=== PATIENT | female | born 1945 | race African-American/Black ===

== ENCOUNTER → 2016-06-02 | Outpatient (CLI) | payer MEDICARE, MEDICAID ==
[~2016-06-02] MED LIST: AMIO200T33; ENAL20TA70 PO; METO100T87 PO; MONT5CHW17 PO; TIOTCAP IN
== END | disposition home or self-care (01) ==
LOC: Rad HDHVI 10:03
PROVIDERS: ATTEND Internal Medicine Cardiovascular Disease
DX: M19.011 Primary osteoarthritis, right shoulder (principal); I10 Essential (primary) hypertension; E11.9 Type 2 diabetes mellitus without complications; R00.2 Palpitations
CPT/HCPCS: 73200

== ENCOUNTER → 2017-01-21 | Outpatient (CLI) | payer MEDICARE, MEDICAID ==
[~2017-01-21] VITALS: Ht 167.6 cm; Wt 86.2 kg
[~2017-01-21] MED LIST changes: +ADENOSINE 72 MG in GIVE UN-DILUTED 0 ML IV ONE; +ADENOSINE 90 MG/30 ML INJ IV ONE
[2017-01-21 12:29] LABS: Urine Bilirubin Negative (Negative); Urine Blood Negative /uL (Negative); Urine Color Yellow (Yellow); Urine Glucose Normal (Normal); Urine Ketone Negative (Negative); Urine Nitrite Negative (Negative); Urine Urobilinogen Normal (Negative); Urine pH 5.5 (5.0-8.0)
[2017-01-21 12:32] LABS: Basophils # (auto) 0 uL; Basophils % (auto) 0.4 % (0.0-2.0); Eosinophils # (auto) 0.1 uL; Eosinophils % (auto) 0.9 % (0.0-7.0); Hematocrit 38.8 % (36.0-46.0); Hemoglobin 12.3 g/dL (12.2-16.2); Lymphocytes # (auto) 0.9 uL; Lymphocytes % (auto) 14.8 % (10.0-50.0); Mean Corpuscular Hemoglobin 26.9 pg (28.0-32.0); Mean Corpuscular Hgb Conc. 31.7 g/dL (32.0-36.0); Mean Corpuscular Volume 84.6 fL (80.0-100.0); Monocytes # (auto) 0.6 uL; Monocytes % (auto) 9.5 % (0.0-12.0); Neutrophils # (auto) 4.6 uL; Neutrophils % (auto) 74.4 % (37.0-80.0); Nucleated Red Blood Cells % 0.1 %; Platelet Count (auto) 170 10^3/uL (140-450); Red Cell Distribution Width 14.7 % (11.8-14.3); White Blood Cell 6.2 10^3/uL (4.4-10.8)
[2017-01-21 12:54] LABS: Albumin 3.6 g/dL (3.4-5.0); BUN/Creatinine Ratio 16.8; Bilirubin, Total 0.6 mg/dL (0.2-1.0); Calcium 8.6 mg/dL (8.5-10.1); Potassium 4.2 mmol/L (3.5-5.1); Total Protein 7.5 g/dL (6.4-8.2)
== END | disposition home or self-care (01) ==
LOC: Rad HDHVI 07:53
PROVIDERS: ATTEND Internal Medicine Cardiovascular Disease
DX: I10 Essential (primary) hypertension (principal); E78.00 Pure hypercholesterolemia, unspecified; E11.9 Type 2 diabetes mellitus without complications; E03.9 Hypothyroidism, unspecified; D64.9 Anemia, unspecified; E55.9 Vitamin D deficiency, unspecified; N39.0 Urinary tract infection, site not specified
CPT/HCPCS: 36415; 78452; 80053; 80061; 81003; 82306; 83036; 84439; 84443; 85025; 93005; 93306; 96374; 96375; A9500; J0153

== ENCOUNTER 2018-03-15 09:30 | Inpatient (IN) | payer MEDICARE, MEDICAID | END 2018-03-19 16:08 | disposition home health service (06) | LOC: ER 09:30 → OVERFLOW 14:32 → WEST WING 21:08 | DX: K57.92 Diverticulitis of intestine, part unspecified, without perforation or abscess without bleeding (principal); N17.0 Acute kidney failure with tubular necrosis; I50.22 Chronic systolic (congestive) heart failure; I13.0 Hypertensive heart and chronic kidney disease with heart failure and stage 1 through stage 4 chronic kidney disease, or unspecified chronic kidney disease; I11.0 Hypertensive heart disease with heart failure; E11.22 Type 2 diabetes mellitus with diabetic chronic kidney disease; N18.3 Chronic kidney disease, stage 3 (moderate); Z95.0 Presence of cardiac pacemaker ==

== ENCOUNTER 2019-09-25 15:23 | Inpatient (IN) | payer MEDICARE, MEDICAID ==
[~2019-09-25] VITALS: Ht 167.6 cm; Wt 84.2 kg
[~2019-09-25 15:23] MED LIST changes: -ADENOSINE 72 MG in GIVE UN-DILUTED 0 ML IV ONE; -ADENOSINE 90 MG/30 ML INJ IV ONE; -AMIO200T33; +AMIO200T33 PO; -ENAL20TA70 PO; +ENAL20TA8 PO; +LEVO500T21 PO; +METR500T PO; -MONT5CHW17 PO; +ONDA-144 PO
[2019-09-25] MEDS ORDERED: AMIODARONE 450mg/250ml AE 250 ML IV SCH (15:57)
[2019-09-25 17:00] LABS: Basophils # (auto) 0 10 ^3/uL (0-0.2); Basophils % (auto) 0.4 % (0.0-2.0); Eosinophils # (auto) 0 10 ^3/uL (0-0.8); Eosinophils % (auto) 0.6 % (0.0-7.0); Hematocrit 33.3 % (36.0-46.0); Hemoglobin 10.4 g/dL (12.2-16.2); Lymphocytes % (auto) 14.8 % (10.0-50.0); Mean Corpuscular Hemoglobin 23.6 pg (28.0-32.0); Mean Corpuscular Hgb Conc. 31.1 g/dL (32.0-36.0); Mean Corpuscular Volume 75.8 fL (80.0-100.0); Monocytes # (auto) 0.6 10 ^3/uL (0-1.3); Monocytes % (auto) 9.6 % (0.0-12.0); Neutrophils # (auto) 4.8 10 ^3/uL (1.6-8.6); Neutrophils % (auto) 74.6 % (37.0-80.0); Nucleated Red Blood Cells % 0.1 %; Platelet Count (auto) 345 10^3/uL (140-450); Red Cell Distribution Width 17.9 % (11.8-14.3); White Blood Cell 6.5 10^3/uL (4.4-10.8)
[2019-09-25 17:14] LABS: INR 1.16 (0.9-1.15)
[2019-09-25 17:17] LABS: Potassium 4.6 mmol/L (3.5-5.1)
[2019-09-25 17:28] LABS: Albumin 3.1 g/dL (3.4-5.0); BUN/Creatinine Ratio 14.6; Bilirubin, Total 0.7 mg/dL (0.2-1.0); Calcium 8.7 mg/dL (8.5-10.1); Total Protein 7.1 g/dL (6.4-8.2)
[2019-09-25] MEDS ORDERED: FUROSEMIDE 40 MG/4 ML VIAL IV ONE ×2 (17:45→20:00)
[2019-09-25] MEDS ORDERED: IPRATROPIUM BROM 0.5 MG/2.5ML INH SOL NEB ONE ×2 (18:00→20:30)
[2019-09-25] MEDS ORDERED: ALBUTEROL SULF 2.5 MG/0.5ML(0.5%) NEB SOLN NEB ONE ×2 (18:00→20:30)
[2019-09-25] MEDS ORDERED: methylPREDNISolone SOD SUCC 125 MG/2 ML VL IV ONE (18:30)
[2019-09-25] MEDS ORDERED: NITROGLYCERIN 0.4 MG SL TAB SL PRN (19:00)
[2019-09-25] MEDS ORDERED: MORPHINE SULF INJ 2 MG/ML SYRINGE 1ML IV PRN (19:00)
[2019-09-25 19:21] LABS: Urine Bacteria FEW /hpf (None Seen); Urine Blood Negative /uL (Negative); Urine Hyaline Cast MOD /lpf (0 - 2); Urine Mucus FEW (None Seen); Urine Specific Gravity 1.014 (1.001-1.035); Urine WBC 1 /hpf (0 - 5)
[2019-09-25] MEDS ORDERED: SODIUM BICARBONATE 8.4 % INJ 50ML VIAL IV ONE (20:00)
[2019-09-25 20:01] VITALS: BP 127/106
[2019-09-25] MEDS: PROPOFOL 100 ML IV SCH (20:04)
[2019-09-25] MEDS ORDERED: IPRATROPIUM BROM 0.5 MG/2.5ML INH SOL ONE (20:06)
[2019-09-25] MEDS ORDERED: ALBUTEROL SULF 2.5 MG/0.5ML(0.5%) NEB SOLN ONE (20:06)
[2019-09-25] MEDS ORDERED: SUCCINYLCHOLINE CHLORIDE 20 MG/ML 10ML VIAL IV ONE (20:15)
[2019-09-25] MEDS ORDERED: ETOMIDATE (2MG/ML) 20ML VIAL IV ONE (20:15)
[2019-09-25] MEDS ORDERED: LORazepam 2MG/ML-1ML VIAL IV ONE (20:15)
[2019-09-25] MEDS ORDERED: LORazepam 2MG/ML-1ML VIAL ONE (20:16)
[2019-09-25] MEDS ORDERED: SODIUM BICARBONATE 8.4% INJ 50ML SYRINGE ONE (20:16)
[2019-09-25] MEDS ORDERED: NOREPINEPHRINE 8 MG/250ML KIT 250 ML IV ONE (20:30)
[2019-09-25 20:55] VITALS: BP 124/80
[2019-09-25] MEDS: MIDAZOLAM DRIP 50 mg/50mL 50 ML IV SCH (21:14)
[2019-09-25] MEDS: fentaNYL Drip 2500mCg/250mlNS 250 ML IV SCH (21:28)
[2019-09-25] MEDS: NOREPINEPHRINE 8 MG/250ML KIT 250 ML IV SCH (21:28)
[2019-09-25] MEDS ORDERED: AMIODARONE HCL 200 MG TAB PO SCH (22:00)
[2019-09-25] MEDS ORDERED: ENALAPRIL MALEATE 10 MG TAB PO SCH (22:00)
[2019-09-25 22:07] VITALS: BP 124/80
[2019-09-25] MEDS ORDERED: cefTRIAXone 1GM/50ML D5W 50 ML IV ONE (22:45)
[2019-09-25] MEDS: APIXABAN 5 MG TAB PO SCH (22:52)
[2019-09-25] MEDS: AZITHROMYCIN 500MG/ 250ML 250 ML IV SCH (23:11)
[2019-09-25] MEDS: AMIODARONE 450mg/250ml AE 250 ML IV SCH (23:56)
[2019-09-26] VITALS (12 sets, daily range): BP systolic 84–140; BP diastolic 41–91
[2019-09-26] MEDS: MIDAZOLAM DRIP 50 mg/50mL 50 ML IV SCH ×3 (01:19→16:42)
[2019-09-26] MEDS: FUROSEMIDE 20 MG/2 ML VIAL IV SCH ×2 (06:35→17:48)
[2019-09-26] MEDS ORDERED: HEPARIN IN NS 1000Units/500mL 0 ML ONE (07:28)
[2019-09-26] MEDS ORDERED: LIDOCAINE 2%HCL (LOCAL ANESTH.) INJ 20ML MDV ONE (07:28)
[2019-09-26] MEDS ORDERED: cefTRIAXone 1GM/50ML D5W 50 ML IV SCH (09:00)
[2019-09-26 09:22] LABS: Basophils # (auto) 0 10 ^3/uL (0-0.2); Basophils % (auto) 0.1 % (0.0-2.0); Eosinophils # (auto) 0 10 ^3/uL (0-0.8); Hematocrit 33.3 % (36.0-46.0); Hemoglobin 10.5 g/dL (12.2-16.2); Lymphocytes # (auto) 0.7 10 ^3/uL (0.4-5.4); Lymphocytes % (auto) 10.7 % (10.0-50.0); Mean Corpuscular Hemoglobin 23.3 pg (28.0-32.0); Mean Corpuscular Hgb Conc. 31.4 g/dL (32.0-36.0); Mean Corpuscular Volume 74.2 fL (80.0-100.0); Monocytes # (auto) 0.3 10 ^3/uL (0-1.3); Monocytes % (auto) 4.9 % (0.0-12.0); Neutrophils # (auto) 5.9 10 ^3/uL (1.6-8.6); Neutrophils % (auto) 84.3 % (37.0-80.0); Nucleated Red Blood Cells % 0.3 %; Platelet Count (auto) 412 10^3/uL (140-450); Red Blood Cells 4.49 10^6/uL (4.0-5.20); Red Cell Distribution Width 18.1 % (11.8-14.3)
[2019-09-26] MEDS: APIXABAN 5 MG TAB PO SCH ×2 (09:29→23:35)
[2019-09-26] MEDS: AZITHROMYCIN 500MG/ 250ML 250 ML IV SCH (09:29)
[2019-09-26 09:58] LABS: Albumin 3.1 g/dL (3.4-5.0); Calcium 8.4 mg/dL (8.5-10.1); Potassium 4.6 mmol/L (3.5-5.1)
[2019-09-26] MEDS ORDERED: ZITHROMAX IV SCH (10:00)
[2019-09-26] MEDS ORDERED: METOPROLOL SUCCINATE XL 50 MG TAB PO SCH (10:00)
[2019-09-26 10:02] LABS: Bilirubin, Total 0.7 mg/dL (0.2-1.0); Total Protein 7.1 g/dL (6.4-8.2)
[2019-09-26] MEDS: NOREPINEPHRINE 8 MG/250ML KIT 250 ML IV SCH (11:13)
[2019-09-26] MEDS: AMIODARONE 450mg/250ml AE 250 ML IV SCH (14:57)
[2019-09-26] MEDS: fentaNYL Drip 2500mCg/250mlNS 250 ML IV SCH (17:30)
[2019-09-26] MEDS: PROPOFOL 100 ML IV SCH (20:04)
--- NOTE | 2019-09-26 20:10 | NUR ---
Respiratory note: TITRATED FIO2 TO 30%. PT TOLERATING WELL.
[2019-09-27] VITALS (37 sets, daily range): BP systolic 84–131; BP diastolic 57–96
[2019-09-27] MEDS ORDERED: AMIODARONE 450mg/250ml AE 250 ML IV ONE (06:00)
[2019-09-27] MEDS: FUROSEMIDE 20 MG/2 ML VIAL IV SCH ×2 (06:36→18:26)
[2019-09-27] MEDS: cefTRIAXone 1GM/50ML D5W 50 ML IV SCH (09:49)
[2019-09-27] MEDS: APIXABAN 5 MG TAB PO SCH ×2 (09:49→21:41)
[2019-09-27] MEDS: AZITHROMYCIN 500MG/ 250ML 250 ML IV SCH (09:49)
--- NOTE | 2019-09-27 12:50 | NUR ---
Respiratory note: PT PLACED ON CPAP TRIAL PER Toyin RETANA. PT TOLERATING CHANGE WELL. RN AWARE. WILL CONTINUE TO MONITOR PT.
--- NOTE | 2019-09-27 13:08 | NUR ---
Respiratory note: CPAP TRIAL TERMINATED DUE TO PT INCREASED RR TO >45, SPO2 90%, HR 120. PT PLACE ON PREVIOUS AC MODE, AND SETTINGS. PT TOLERATING CHANGE WELL. PT IS RESPONSIVE TO TACTILE STIMULI, HOWEVER CANNOT FOLLOW COMMANDS. RN AWARE. WILL CONTINUE TO MONITOR PT.
[2019-09-27] MEDS: fentaNYL Drip 2500mCg/250mlNS 250 ML IV SCH (16:24)
[2019-09-27 17:06] LABS: Eosinophils # (auto) 0 10 ^3/uL (0-0.8); Hemoglobin 10.3 g/dL (12.2-16.2); Mean Corpuscular Volume 75.4 fL (80.0-100.0)
[2019-09-27 17:08] LABS: Basophils # (auto) 0 10 ^3/uL (0-0.2); Basophils % (auto) 0.5 % (0.0-2.0); Eosinophils % (auto) 0.1 % (0.0-7.0); Hematocrit 32.9 % (36.0-46.0); Lymphocytes % (auto) 10.2 % (10.0-50.0); Mean Corpuscular Hemoglobin 23.7 pg (28.0-32.0); Mean Corpuscular Hgb Conc. 31.4 g/dL (32.0-36.0); Monocytes # (auto) 0.9 10 ^3/uL (0-1.3); Monocytes % (auto) 9.4 % (0.0-12.0); Neutrophils # (auto) 7.9 10 ^3/uL (1.6-8.6); Neutrophils % (auto) 79.8 % (37.0-80.0); Nucleated Red Blood Cells % 0.3 %; Platelet Count (auto) 355 10^3/uL (140-450); Red Blood Cells 4.36 10^6/uL (4.0-5.20); Red Cell Distribution Width 17.7 % (11.8-14.3); White Blood Cell 9.9 10^3/uL (4.4-10.8)
[2019-09-27 17:20] LABS: INR 1.24 (0.9-1.15)
[2019-09-27 17:23] LABS: Alanine Aminotransferase 97 U/L (13-56); Albumin 2.6 g/dL (3.4-5.0); Anion Gap 10 (5-15); Aspartate Aminotransferase 60 U/L (15-37); BUN/Creatinine Ratio 15.9; Blood Urea Nitrogen 39 mg/dL (7-18); Calcium 7.8 mg/dL (8.5-10.1); Carbon Dioxide 20 mmol/L (21-32); Chloride 104 mmol/L (98-107); GFR African American 25 mL/min; GFR Non-African American 21 mL/min; Glucose 230 mg/dL (74-106); Sodium 134 mmol/L (136-145)
[2019-09-27 17:25] LABS: Alkaline Phosphatase 100 U/L (45-117); Bilirubin, Total 0.5 mg/dL (0.2-1.0); Total Protein 6.4 g/dL (6.4-8.2)
--- NOTE | 2019-09-27 17:45 | NUR ---
Admit to Senior Account Executive bed 6 from ER on vent MIRAADDY PARIKH admitted to Senior Account Executive bed 6 as ICU overflow via bed on bus driver/monitor, intubated and being bagged by Respiratory Therapist. Patient transferred to bed, connected to mechanical ventilator by therapist, ADA at bedside. Patient connected to ICU monitoring, weighed by bedscale.
--- NOTE | 2019-09-27 18:31 | NUR ---
RT NOTE RECEIVED PT INTUBATED AND ON VENT V17 ON STATED SETTINGS. VENT IS PLUGGED TO RED OUTLET. ALARMS ARE ON AND AUDIBLE TO NURSING. A,BU BAG AT BEDSIDE AND CONNECTED TO O2. 8.0 ETT IS SECURED WITH ANCHORFAST AT 22 CM AT THE TEETH AT THE ORAL CENTER. BS ARE CTA. PT SUCTIONED FOR SCANT RETURN.CONT ORDERED. CIRCUIT TEMP 34.9, POX 95% Addendum: 09/27/19 at 1836 by Opal Gamez RT Amended: Links added.
--- NOTE | 2019-09-27 18:45 | NUR ---
Patient bathe/linen change Patient given complete bath with chlorhexidine wipes. Skin integrity assessed for any changes. Linens changed. Patient repositioned for comfort.
[2019-09-27] MEDS: PROPOFOL 100 ML IV SCH (20:04)
--- NOTE | 2019-09-27 20:05 | NUR ---
RT NOTE ROUTINE VENT CHECK DONE. PT INTUBATED AND ON VENT V17 ON STATED SETTINGS. VENT IS PLUGGED TO RED OUTLET. ALARMS ARE ON AND AUDIBLE TO NURSING. A,BU BAG AT BEDSIDE AND CONNECTED TO O2. 8.0 ETT IS SECURED WITH ANCHORFAST AT 22 CM AT THE TEETH AT THE ORAL CENTER. BS ARE CTA. WATER LEVEL IS ADEQUATE. CONT ORDERED. CIRCUIT TEMP 35.1, POX 94% Addendum: 09/27/19 at 2028 by Opal Gamez RT Amended: Links added.
[2019-09-27] MEDS: MIDAZOLAM DRIP 50 mg/50mL 50 ML IV SCH (20:06)
[2019-09-27] MEDS: AMIODARONE 450mg/250ml AE 250 ML IV SCH (21:42)
[2019-09-27] MEDS: NOREPINEPHRINE 8 MG/250ML KIT 250 ML IV SCH (21:44)
[2019-09-27 21:47] LABS: Potassium 3.9 mmol/L (3.5-5.1)
--- NOTE | 2019-09-27 22:00 | NUR ---
PAGED REGARDING PATIENT'S ARRHYTHMIA
--- NOTE | 2019-09-27 22:07 | NUR ---
RT NOTE ROUTINE VENT CHECK DONE. PT INTUBATED AND ON VENT V17 ON STATED SETTINGS. VENT IS PLUGGED TO RED OUTLET. ALARMS ARE ON AND AUDIBLE TO NURSING. A,BU BAG AT BEDSIDE AND CONNECTED TO O2. 8.0 ETT IS SECURED WITH ANCHORFAST AT 22 CM AT THE TEETH AT THE ORAL CENTER. BS ARE CTA. PT WAS SUCTIONED FOR SCANT RETURN. WATER LEVEL IS ADEQUATE. CONT ORDERED. CIRCUIT TEMP 34.9, POX 97% Addendum: 09/27/19 at 2310 by Opal Gamez RT Amended: Links added.
--- NOTE | 2019-09-27 22:20 | NUR ---
CALLED BACK UPDATED ON PATIENT'S STATUS AND LAB VALUES. ORDERS RECEIVED.
[2019-09-27] MEDS ORDERED: POTASSIUM CHL 20MEQ/100ML 100 ML IV ONE (22:30)
[2019-09-27] MEDS ORDERED: MAGNESIUM SULFATE 1GM/100ML 100 ML IV ONE (22:30)
[2019-09-28] VITALS (96 sets, daily range): BP systolic 83–151; BP diastolic 53–96
--- NOTE | 2019-09-28 00:10 | NUR ---
RT NOTE ROUTINE VENT CHECK DONE. PT INTUBATED AND ON VENT V17 ON STATED SETTINGS. VENT IS PLUGGED TO RED OUTLET. ALARMS ARE ON AND AUDIBLE TO NURSING. A,BU BAG AT BEDSIDE AND CONNECTED TO O2. 8.0 ETT IS SECURED WITH ANCHORFAST AT 22 CM AT THE TEETH AT THE ORAL RIGHT. WATER LEVEL IS ADEQUATE. CONT ORDERED. CIRCUIT TEMP 35.0, POX 97% Addendum: 09/28/19 at 0038 by Opal Gamez RT Amended: Links added.
[2019-09-28] MEDS ORDERED: CARV25TA PO (01:41)
[2019-09-28] MEDS ORDERED: FUR20T GT (01:41)
[2019-09-28] MEDS ORDERED: AMLO5TAB15 PO (01:41)
[2019-09-28] MEDS ORDERED: LOSA-39 PO (01:41)
[2019-09-28] MEDS ORDERED: METO25TA5 PO (01:41)
[2019-09-28] MEDS ORDERED: ATOR20TA50 PO (01:41)
[2019-09-28] MEDS ORDERED: LINA5TAB PO (01:41)
[2019-09-28] MEDS ORDERED: APIX5TAB PO (01:41)
[2019-09-28] MEDS ORDERED: DILT60TA27 PO (01:41)
[2019-09-28] MEDS ORDERED: HYDR-531 PO (01:44)
--- NOTE | 2019-09-28 02:04 | NUR ---
RT NOTE ROUTINE VENT CHECK DONE. PT INTUBATED AND ON VENT V17 ON STATED SETTINGS. VENT IS PLUGGED TO RED OUTLET. ALARMS ARE ON AND AUDIBLE TO NURSING. A,BU BAG AT BEDSIDE AND CONNECTED TO O2. 8.0 ETT IS SECURED WITH ANCHORFAST AT 22 CM AT THE TEETH AT THE ORAL RIGHT. WATER LEVEL IS ADEQUATE. CONT ORDERED. CIRCUIT TEMP 35.0, POX 97% Addendum: 09/28/19 at 0210 by Opal Gamez RT Amended: Links added.
--- NOTE | 2019-09-28 04:04 | NUR ---
RT NOTE ROUTINE VENT CHECK DONE. PT INTUBATED AND ON VENT V17 ON STATED SETTINGS. VENT IS PLUGGED TO RED OUTLET. ALARMS ARE ON AND AUDIBLE TO NURSING. AMBU BAG AT BEDSIDE AND CONNECTED TO O2. 8.0 ETT IS SECURED WITH ANCHORFAST AT 22 CM AT THE TEETH AT THE ORAL RIGHT. WATER LEVEL IS ADEQUATE. CONT ORDERED. CIRCUIT TEMP 35.0, POX 97% Addendum: 09/28/19 at 0423 by Opal Gamez RT Amended: Links added.
[2019-09-28 04:16] LABS: Eosinophils # (auto) 0 10 ^3/uL (0-0.8); Hemoglobin 10.2 g/dL (12.2-16.2)
[2019-09-28 04:17] LABS: Basophils # (auto) 0.1 10 ^3/uL (0-0.2); Basophils % (auto) 0.7 % (0.0-2.0); Eosinophils % (auto) 0.4 % (0.0-7.0); Hematocrit 32.6 % (36.0-46.0); Lymphocytes # (auto) 1.1 10 ^3/uL (0.4-5.4); Lymphocytes % (auto) 12.3 % (10.0-50.0); Mean Corpuscular Hemoglobin 23.2 pg (28.0-32.0); Mean Corpuscular Hgb Conc. 31.2 g/dL (32.0-36.0); Mean Corpuscular Volume 74.4 fL (80.0-100.0); Monocytes % (auto) 11.3 % (0.0-12.0); Neutrophils # (auto) 6.5 10 ^3/uL (1.6-8.6); Neutrophils % (auto) 75.3 % (37.0-80.0); Nucleated Red Blood Cells % 0.5 %; Platelet Count (auto) 335 10^3/uL (140-450); Red Blood Cells 4.39 10^6/uL (4.0-5.20); Red Cell Distribution Width 17.6 % (11.8-14.3); White Blood Cell 8.6 10^3/uL (4.4-10.8)
[2019-09-28 04:31] LABS: Albumin 2.5 g/dL (3.4-5.0); Calcium 8.2 mg/dL (8.5-10.1); Potassium 4.2 mmol/L (3.5-5.1)
[2019-09-28 04:34] LABS: BUN/Creatinine Ratio 17.4; Bilirubin, Total 0.6 mg/dL (0.2-1.0); Total Protein 6.1 g/dL (6.4-8.2)
[2019-09-28] MEDS: FUROSEMIDE 20 MG/2 ML VIAL IV SCH ×2 (05:41→17:53)
[2019-09-28] MEDS: fentaNYL Drip 2500mCg/250mlNS 250 ML IV SCH (05:42)
--- NOTE | 2019-09-28 06:40 | NUR ---
RECEIVED PHONE CALL FROM . UPDATED ON PATIENT'S STATUS. NO NEW ORDERS FOR SEFERINO ON EKG.
[2019-09-28] MEDS ORDERED: SODIUM CHLORIDE 0.9% 1,000 ML IV SCH (06:45)
[2019-09-28] MEDS ORDERED: LIDOCAINE 2%HCL (LOCAL ANESTH.) INJ 20ML MDV ONE (08:50)
--- NOTE | 2019-09-28 09:25 | NUR ---
Resumed care at 0725, orders removed and ongoing assessments being done. Being treated for multiple problems and remains intubated and maintaining on FentaNLY infusion for comfort. Does open eyes upon stimulation. No sustain eye contact and at this time not following simple directions. Scheduled for procedure today in the Dictaphone Operator. Required another IV access and a 22 gauge to the right hand started by Isidro TY. Remains in AFIB with rate ranging from 110-120 and remains on a Amiodarone gtt at 0.5mg/min. Levophed continues to infuse for hemodynamic stability and will titrate as appropriate. Taken to Dictaphone Operator suite at 0855. Escorted by Maryana TY and staff.
[2019-09-28] MEDS: cefTRIAXone 1GM/50ML D5W 50 ML IV SCH (10:00)
[2019-09-28] MEDS ORDERED: ceFAZolin 1GM 2 GM in D5W 5% 100 ML IV ONE (10:30)
--- NOTE | 2019-09-28 10:50 | NUR ---
RT NOTE: PT JUST BROUGHT BACK FROM 2HR PROCEDURE IN THERMO CEMENTING FOLDER OPERATOR. PROCEDURE HAPPENED W/O INCIDENT. RN IS BEDSIDE REPOSITIONING PT. NO SIGNS OF DISTRESS. PT IS BEGINNING TO WAKE UP BUT IS STILL NOT FOLLOWING COMMANDS. RN STATED THAT SHE SPOKE WITH DR URENA WHO WOULD LIKE TO TRY CPAP LATER IN SHIFT IF PT STARTS TO FOLLOW COMMANDS. WILL CONTINUE TO MONITOR.
--- NOTE | 2019-09-28 11:04 | NUR ---
report given to pcn. pt taken to ICU without incident. pt placed on monitor. site checked with pcn and no changes. groin soft and benign. no bleeding noted.
[2019-09-28] MEDS: AMIODARONE HCL 200 MG TAB PO SCH (11:53)
[2019-09-28] MEDS: APIXABAN 5 MG TAB PO SCH ×2 (11:53→21:48)
[2019-09-28] MEDS: AZITHROMYCIN 500MG/ 250ML 250 ML IV SCH (12:44)
--- NOTE | 2019-09-28 13:26 | NUR ---
Returned to record label intern bed 6 at 1055 am. Report received from Maryana TY and Dr. Levine. Successful cardiac ablation and is 100% V-paced and remains V-paced with no ectopy noted. Per Dr. Levine will discontinue the Amiodarone infusion once po amiodarone given. Administered and will discontinue infusion at 1400. Tapering down FentaNLY infusion. Easily awakens when stimulated and opens eyes but does not have any sustain eye contact and not able to follow any simple directions. Starts biting down on ETT when awaken. Reoriented to staff, place and situation upon rendering care.
--- NOTE | 2019-09-28 16:42 | NUR ---
Dr. Prasad in unit at 1545. Continue with current plan of care. Continues to awaken by calling name and open eyes. She did nod head yes when asked if she could hear me but not following any other direction. Does move arms upward but has not attempted to pull on the EET, soft mittens to both hands. Shalonda RT placed on CPAP approximately an hour ago and went apneic. She also continues to bite down on the EET. Interrupted CPAP trial for now.
--- NOTE | 2019-09-28 18:40 | NUR ---
Resting quietly. Tolerating ventilator when sleeping but once she is awake she starts biting down on tube. Continue to reorient to situation and plan of care.
[2019-09-28] MEDS ORDERED: DEXTROSE (50%) 50ML SYRG IV PRN (19:00)
[2019-09-28] MEDS: PROPOFOL 100 ML IV SCH (20:04)
[2019-09-28] MEDS: MIDAZOLAM DRIP 50 mg/50mL 50 ML IV SCH (20:06)
[2019-09-28] MEDS: NOREPINEPHRINE 8 MG/250ML KIT 250 ML IV SCH (20:46)
[2019-09-29] VITALS (98 sets, daily range): BP systolic 87–137; BP diastolic 52–98
[2019-09-29] MEDS: ACCU-CHEK COMFORT CURVE STRIP VI SCH ×5 (00:30→23:39)
[2019-09-29] MEDS: fentaNYL Drip 2500mCg/250mlNS 250 ML IV SCH (00:56)
--- NOTE | 2019-09-29 03:30 | NUR ---
Patient bathe/linen change Patient given complete bath with chlorhexidine wipes. Skin integrity assessed for any changes. Linens changed. Patient repositioned for comfort.
[2019-09-29 03:40] LABS: Basophils # (auto) 0.1 10 ^3/uL (0-0.2); Basophils % (auto) 0.6 % (0.0-2.0); Eosinophils # (auto) 0 10 ^3/uL (0-0.8); Eosinophils % (auto) 0.5 % (0.0-7.0); Hemoglobin 10.6 g/dL (12.2-16.2); Lymphocytes % (auto) 11.5 % (10.0-50.0); Mean Corpuscular Hemoglobin 23.4 pg (28.0-32.0); Mean Corpuscular Hgb Conc. 31.1 g/dL (32.0-36.0); Mean Corpuscular Volume 75.2 fL (80.0-100.0); Monocytes # (auto) 0.9 10 ^3/uL (0-1.3); Monocytes % (auto) 9.4 % (0.0-12.0); Neutrophils # (auto) 7.1 10 ^3/uL (1.6-8.6); Nucleated Red Blood Cells % 0.4 %; Platelet Count (auto) 296 10^3/uL (140-450); Red Blood Cells 4.52 10^6/uL (4.0-5.20); White Blood Cell 9.1 10^3/uL (4.4-10.8)
[2019-09-29 04:00] LABS: Potassium 4.7 mmol/L (3.5-5.1)
[2019-09-29 04:08] LABS: Albumin 2.4 g/dL (3.4-5.0); BUN/Creatinine Ratio 17.7; Bilirubin, Total 0.8 mg/dL (0.2-1.0); Calcium 8.4 mg/dL (8.5-10.1); Total Protein 6.5 g/dL (6.4-8.2)
[2019-09-29] MEDS: FUROSEMIDE 20 MG/2 ML VIAL IV SCH ×2 (05:31→18:12)
[2019-09-29] MEDS: DexMEDEtomidine 400 MCG in D5W 5% 96 ML IV SCH ×2 (05:31→23:39)
--- NOTE | 2019-09-29 05:35 | NUR ---
PRECEDEX During night ,Patient was tolerating the ventilator while sleeping but once she is awake she bits on ETT. Now when she wakes up she is restless and bitting on the tube. Precedex drip started for CPAP trial today.
[2019-09-29] MEDS: InsuLIN REG 1unit/0.01ml Soln (100units/ml) SC SCH ×5 (06:56→23:42)
--- NOTE | 2019-09-29 07:36 | NUR ---
Opening Note; Received report, assumed care of female patient on [facility] vent- AC, 16, 30%, 500tv, peep5, size 8.0, 22@ lip. Precedex 2mcg/kg/min into left UA midline. Neuro- patient not following commands at this time however some slight tracking, pupils 2mm bilat, brisk. Vital signs WNL. Patient repositioned in bed, no signs of acute distress noted at this time, continue to monitor.
--- NOTE | 2019-09-29 07:40 | NUR ---
G collected by RT
--- NOTE | 2019-09-29 08:00 | NUR ---
Pt awake but unable to follow commands at this time. Initiated spontaneous breathing trial, pt did not tolerate. Low tidal volumes 200-250ml, low RR 8-10, followed by periods of apnea. Placed pt back on AC mode previous settings. Will attempt at a later time when pt is more awake/alert. RN at bedside and aware.
[2019-09-29] MEDS: cefTRIAXone 1GM/50ML D5W 50 ML IV SCH (09:47)
[2019-09-29] MEDS: AMIODARONE HCL 200 MG TAB PO SCH (09:51)
[2019-09-29] MEDS: APIXABAN 5 MG TAB PO SCH ×2 (09:51→22:01)
--- NOTE | 2019-09-29 10:18 | NUR ---
NEURO; Patient sleeping at this time, multiple attempts to arouse and wake patient, periods of waking up but not following commands. Pupils 2mm bilat sluggish. Continue to monitor.
[2019-09-29] MEDS: AZITHROMYCIN 500MG/ 250ML 250 ML IV SCH (10:22)
--- NOTE | 2019-09-29 10:36 | NUR ---
Dr. Ricardo Prasad at bedside to evaluate patient, updated on patient status including neuro status. No new orders at this time.
--- NOTE | 2019-09-29 10:40 | NUR ---
Pt is arousable and occasionally tracking, still not following commands. Attempted CPAP trial again, pt did not tolerate. Quickly falls back asleep with episodes of apnea. Placed pt back on AC mode previous settings. RN at bedside and aware.
--- NOTE | 2019-09-29 12:45 | NUR ---
WOUND CARE NOTE: IN TO SEE PATIENT AT THIS TIME FOR SKIN INTEGRITY. PATIENT ADMITTED TO [facility] WITH DIAGNOSIS OF CHF. CURRENT JORGE SCORE IS 12. PATIENT WAS NOTED TO BE INTUBATED, LIGHTLY SEDATED IN ICU CL #6. PATIENT WILL BE UNDERGOING CPAP TRIAL SOON. PER BEDSIDE NURSE SHE IS WOUND FREE WITH EXCEPTION OF ECCHYMOSIS TO RIGHT AND LEFT A/C ARMS. WOUND PHOTO TAKEN FOR REFERENCE. RECOMMEND: FREQUENT TURN SCHEDULE Q 2 HOURS, PRN CONDITION PERMITS, WITH PRESSURE REDISTRIBUTION USING PILLOWS/WEDGES, BID/PRN APPLICATION MOISTURE BARRIER CREAM, OPTIFOAM GENTLE SACRAL DRESSING PREVENTATIVE, DIETARY CONSULT FOR INTUBATION STATUS, SKIN/WOUND CARE PLAN, CONTINUED MONITORING BY WOUND CARE TEAM.
--- NOTE | 2019-09-29 13:24 | NUR ---
Neuro; Patient opening eyes spontaneously, manipulating arms however still not following commands.
--- NOTE | 2019-09-29 15:14 | NUR ---
Nutrition Assessment Note please see attached link for complete assessment Est energy needs ABW 73 [id number] kcal (23-25 kcal/kg ABW), Est protein needs: 58-73g (0.8-1.0g/kg ABW). Will reassess per dry body wt Rec: Glucerna @ 60 ml/hr per MD approval Addendum: 09/29/19 at [address] Amended: Links added.
--- NOTE | 2019-09-29 16:18 | NUR ---
FAILED CPAP TRIAL Pt waking up more, shifting in bed and moving arms up towards face, still unable to follow commands. Initiated CPAP trial, pt tolerated approximately 10 minutes before RR increased to 40's with low VT 210-240ml with increased agitation and distress. Ended CPAP trial and placed back on AC mode, pt tolerating AC and resting back in bed with no distress. RN at bedside and aware. Will endorse pt care to noc shift RT.
--- NOTE | 2019-09-29 17:48 | NUR ---
Spoke with Dr. Levine via telephone, gave update on patient. No new orders at this time.
--- NOTE | 2019-09-29 19:16 | NUR ---
Dr. Gautam at bedside, updated on patient status, states we will CPAP in AM. Addendum: 09/29/19 at 1917 by Casey Veras RN Wrong time [id number]
[2019-09-29] MEDS: PROPOFOL 100 ML IV SCH (20:04)
[2019-09-29] MEDS: MIDAZOLAM DRIP 50 mg/50mL 50 ML IV SCH (20:06)
--- NOTE | 2019-09-29 20:30 | NUR ---
PARTIAL LINEN CHANGE COMPLETED
--- NOTE | 2019-09-29 20:30 | NUR ---
TEMP 100.8 F TEMPORAL - ICE PACKS APPLIED TO AXILLA, COOL COMPRESS TO FOREHEAD
--- NOTE | 2019-09-29 20:30 | NUR ---
OPENING NOTE: INTUBATED AND LIGHTLY SEDATED. OPENS EYES, APPEARS DISORIENTED, ATTEMPTS TO GRAB TUBE. V PACED WITH UNDERLYING A FLUTTER, HR 80. SBP 90-100s. 8.0 ETT, 23 AT THE LIP. LS CTA, INTERMITTENT RHONCHI, DIMINISHED TO BASES. EVEN AND UNLABORED BREATHING, SpO2>95% ON CURRENT VENT SETTINGS. MINIMAL ORAL SECRETIONS, THICK CREAMY SECRETIONS VIA ETT. ABD OBESE, BUT SOFT. HYPOACTIVE BS. UNKNOWN LBM. NGT + AIR BOLUS, CLAMPED. GARCIA PATENT AND INTACT, KIA URINE. SKIN GROSSLY INTACT, SEE SKIN AND WOUND FLOWSHEET. LEFT UPPER ARM MIDLINE, CDI, AND PATENT WITH BLOOD RETURN. REINFORCED POC. MAINTAINED PATIENT SAFETY: BED LOCKED AND IN THE LOWEST POSITION, FREQUENT VISUAL CHECKS, SOFT MITTENS ON FOR SAFETY. WILL CONT CARE
[2019-09-29] MEDS: NOREPINEPHRINE 8 MG/250ML KIT 250 ML IV SCH (20:46)
--- NOTE | 2019-09-29 21:17 | NUR ---
SEDATION VACATION: PATIENT ON PRECEDEX GTT, WAKES UP STARTLED AND DISORIENTED, ATTEMPTING TO PULL AT ETT. SOFT MITTENS ON FOR SAFETY Addendum: 09/29/19 at 2117 by Alicia Badillo RN RN Amended: Links added.
--- NOTE | 2019-09-29 22:02 | NUR ---
TEMP DOWN TO 99.3 F ORALLY
--- NOTE | 2019-09-29 23:45 | NUR ---
NEURO STATUS: AWAKENS STARTLED, DISORIENTED, BITING DOWN ON ETT, SWING ARMS AT SAFETY COUNCIL DIRECTOR, ATTEMPTING TO STRIKE AND PUSH SAFETY COUNCIL DIRECTOR AWAY. INCREASED PRECEDEX GTT, MITTENS ON FOR SAFETY
[2019-09-30] VITALS (61 sets, daily range): BP systolic 89–164; BP diastolic 59–128
--- NOTE | 2019-09-30 03:13 | NUR ---
BED BATH WITH CHG WIPES, BRENDA CARE, GARCIA CARE AND ORAL CARE
--- NOTE | 2019-09-30 04:00 | NUR ---
NEURO STATUS: MORE CALM THAN PREVIOUSLY, HOWEVER, NOT FOLLOWING COMMANDS AT THIS TIME.
[2019-09-30 05:20] LABS: Hemoglobin 10.4 g/dL (12.2-16.2); Lymphocytes # (auto) 0.9 10 ^3/uL (0.4-5.4)
[2019-09-30 05:23] LABS: Basophils # (auto) 0 10 ^3/uL (0-0.2); Basophils % (auto) 0.3 % (0.0-2.0); Eosinophils # (auto) 0.1 10 ^3/uL (0-0.8); Eosinophils % (auto) 0.5 % (0.0-7.0); Hematocrit 32.9 % (36.0-46.0); Lymphocytes % (auto) 9.2 % (10.0-50.0); Mean Corpuscular Hemoglobin 23.5 pg (28.0-32.0); Mean Corpuscular Hgb Conc. 31.6 g/dL (32.0-36.0); Mean Corpuscular Volume 74.4 fL (80.0-100.0); Monocytes # (auto) 1.1 10 ^3/uL (0-1.3); Monocytes % (auto) 11.3 % (0.0-12.0); Neutrophils # (auto) 7.4 10 ^3/uL (1.6-8.6); Neutrophils % (auto) 78.7 % (37.0-80.0); Platelet Count (auto) 272 10^3/uL (140-450); Red Blood Cells 4.43 10^6/uL (4.0-5.20); Red Cell Distribution Width 17.6 % (11.8-14.3); White Blood Cell 9.4 10^3/uL (4.4-10.8)
[2019-09-30] MEDS: ACCU-CHEK COMFORT CURVE STRIP VI SCH ×3 (05:35→18:30)
[2019-09-30] MEDS: FUROSEMIDE 20 MG/2 ML VIAL IV SCH ×2 (05:35→19:04)
[2019-09-30] MEDS: InsuLIN REG 1unit/0.01ml Soln (100units/ml) SC SCH ×3 (05:36→18:30)
[2019-09-30 05:39] LABS: Potassium 3.4 mmol/L (3.5-5.1)
[2019-09-30 05:51] LABS: Albumin 2.2 g/dL (3.4-5.0); BUN/Creatinine Ratio 16.2; Bilirubin, Total 0.8 mg/dL (0.2-1.0); Calcium 8.4 mg/dL (8.5-10.1); Total Protein 6.3 g/dL (6.4-8.2)
--- NOTE | 2019-09-30 06:27 | NUR ---
Respiratory note: RECEIVED PATIENT ON V17 V200 VENT ORALLY INTUBATED WITH AN 8.0 ETT SECURED VIA VIANCA AT THE 22CM MARKING AT THE LIP, AND MECHANICALLY VENTILATED WITH THE CHARTED SETTINGS. SPO2 97%, LUNG SOUNDS CLEAR/DIM T/O, SMALL AMOUNT OF THIN CLEAR SECRETIONS WHEN SUCTIONED. SKIN IS WARM/DRY TO THE TOUCH AND IS INTACT NEAR VIANCA SITE. THERE IS A NGT IN THE RIGHT NARE AND IS SECURED TO THE ETT. NO ADVANCE ACCESS LINES NOTED. NO NEW AM CXR TO ASSESS. PATIENT IS UNRESPONSIVE TO BOTH VERBAL/TACTILE STIMULI AND IS SEDATED ON A PRECEDEX DRIP. SHE IS RESTING COMFORTABLY AND TOLERATING VENT WELL, NO CHANGES MADE. VENT PLUGGED INTO RED OUTLET AND ALL ALARMS ARE SET AND AUDIBLE. WILL CONTINUE TO ASSESS PATIENT WELL VENTILATOR FUNCTION.
--- NOTE | 2019-09-30 07:32 | NUR ---
REPORT AND CARE ENDORSED TO MELONY PANDYA
--- NOTE | 2019-09-30 07:35 | NUR ---
Respiratory note: NEW VENT ORDERS RECEIVED, AND CHANGES MADE, PER DR. URENA'S TELEPHONE ORDER. RR WAS DECREASED TO 12 AND VT WAS DECREASED TO 450 AT THIS TIME. MELONY PANDYA MADE AWARE OF CHANGES.
--- NOTE | 2019-09-30 09:00 | NUR ---
PATIENT ON PRECEDEX - SEE IV SPREADSHEET. Addendum: 09/30/19 at 1558 by Edita Barnes RN Amended: Links added.
--- NOTE | 2019-09-30 09:16 | NUR ---
Respiratory note: AM CXR ASSESSED AND IT SHOWS ETT IN SATISFACTORY POSITION SITTING APPROX 3.4CM ABOVE THE SUNI. NO INDICATION TO ADJUST TUBE AT THIS TIME.
--- NOTE | 2019-09-30 09:50 | NUR ---
PATIENT' NIECE PHONES - UPDATED ON PATIENT CONDITION.
[2019-09-30] MEDS: cefTRIAXone 1GM/50ML D5W 50 ML IV SCH (09:52)
--- NOTE | 2019-09-30 10:16 | NUR ---
DR BARAKAT VISITS AND EXAMINES PATIENT - ORDER RECEIVED.
[2019-09-30] MEDS: APIXABAN 5 MG TAB PO SCH ×3 (10:41→22:38)
[2019-09-30] MEDS: AMIODARONE HCL 200 MG TAB PO SCH (10:41)
[2019-09-30] MEDS: AZITHROMYCIN 500MG/ 250ML 250 ML IV SCH (10:42)
--- NOTE | 2019-09-30 11:02 | NUR ---
Respiratory note: PATIENT MORE AWAKE NOW, FOLLOWING COMMANDS, AND WAS SWITCHED TO CPAP MODE AT THIS TIME WITH A PS 8 AND PEEP OF 5. PATIENT APPEARS RELAXED BUT SLIGHTLY TACHYPNEIC WITH A RR OF 26-28. RN MUMTAZ AT BEDSIDE AND AWARE OF CHANGE. SPONTANEOUS BREATHING TRIAL: VT: 440 RR: 26 VE: 10.6 HR: 80 SPO2: 100% BP: 118/79
--- NOTE | 2019-09-30 11:55 | NUR ---
Respiratory note: PATIENT SELF EXTUBATED AT APPROX 1128. SHE WAS IMMEDIATELY PLACED ON 30% COOL AEROSOL MASK AND NO STRIDOR WAS HEARD. PATIENT REMAINS WITH EVEN/UNLABORED RESPIRATIONS AND SPO2 MAINTAINS AT 98%. SHE WAS INSTRUCTED TO REFRAIN FROM TALKING FOR 2HRS TO AVOID POSSIBLE TRACHEAL/VOCAL CORD SWELLING FROM TRAUMA. PATIENT RESTING COMFORTABLY AT THIS TIME. DR. URENA INFORMED OF SELF EXTUBATION AND PATIENTS CURRENT STATUS.
[2019-09-30] MEDS: POTASSIUM CHL 20MEQ/100ML 100 ML IV SCH ×2 (12:00→13:50)
--- NOTE | 2019-09-30 14:35 | NUR ---
PATIENT CONTINUALLY REMOVING COOL MIST MASK ORDERED. EXPECTORATING MOD AMT'S THICK YELLOW/BLOODY SECRETIONS. O2 APPLIED PER NC @ 2L R.T. AWARE.
--- NOTE | 2019-09-30 17:55 | NUR ---
CALL PLACED TO DR BARAKAT RE: DOWNGRADE OF PATIENT - AWAITING RETURN CALL.
--- NOTE | 2019-09-30 19:24 | NUR ---
Opening Shift Note Assumed care of patient, awake and alert x 3 but with poor concentration and very lethargic. Bed is in lowest position and locked. Patient able to turn from side to side with mild assistance. No S/S of distress/SOB or pain. Patient attached to continuous bedside leaf stripper and continuous oxygen saturation monitor. BP cuff secured to right arm. Insructed on POC and to call for assist PRN, will continue to monitor for changes Q1hr and PRN.
[2019-09-30] MEDS: PROPOFOL 100 ML IV SCH (20:04)
[2019-09-30] MEDS: MIDAZOLAM DRIP 50 mg/50mL 50 ML IV SCH (20:06)
--- NOTE | 2019-09-30 20:15 | NUR ---
Patient given ice chips and able to tolerate with no issues.
[2019-09-30] MEDS: NOREPINEPHRINE 8 MG/250ML KIT 250 ML IV SCH (20:46)
--- NOTE | 2019-09-30 20:46 | NUR ---
MD Prasad called back and okayed transfer to Telemetry. Transfer order will be placed.
[2019-09-30] MEDS: fentaNYL Drip 2500mCg/250mlNS 250 ML IV SCH (20:47)
--- NOTE | 2019-09-30 21:12 | NUR ---
supervisor in charge notified of transfer order.
[2019-09-30] MEDS: DexMEDEtomidine 400 MCG in D5W 5% 96 ML IV SCH (22:01)
--- NOTE | 2019-09-30 22:40 | NUR ---
Patient refusing medications and will not move until she speaks with her niece. When I told patient that we would be transferring her soon to room 292B she became very upset and said she wants to go home. I told her that, as I had previously explained, she was not being discharged home but being transferred to a lower level of care. She became upset even further when I called her niece and left a message with a call back number. Patient states that she believes I did not call her niece but lied. Patient began pulling off her BP cuff and refused to take medications. I explained what Eliquis does and why it has been prescribed but patient just kept saying "I'm not taking any more medications."
--- NOTE | 2019-09-30 22:44 | NUR ---
Spoke to Traffic Officer who told me to send patient to room 292B where she will have access to a phone and patient can call niece herself.
--- NOTE | 2019-09-30 22:58 | NUR ---
Patient's niece called back and attempted to speak to patient. Patient began denying niece's pleas to stay in hospital. 'If you love me you'll come get me." I took phone to notify niece that we would have to move her to room 292B and patient became upset. "How dare you take phone away from me!" Per niece, patient is very stubborn and obstinate and has done this before when hospitalized. Patient, once more, is alert and oriented x 3. I informed patient that she would have a private phone available to her at all times once she was moved but she is still upset that I am moving her to new room.
--- NOTE | 2019-09-30 23:12 | NUR ---
Patient transferred to room 292B. Report given to MELONY Senior. Patient upset and crying but medically stable on 2 l/min NC. I once more educated patient that she has a phone available in her room and can call her niece at any time and showed her how to operate phone.
--- NOTE | 2019-09-30 23:36 | NUR ---
RECEIVED PATIENT FROM ICU VIA HOSPITAL BED. PATIENT CRYING AND BEGGING TO GO. NO S/S OF DISTRESS NOTED. PATIENT IS ON 2L/NC WITH O2 SAT 96%, BP 148/98. RR 23. PATIENT PLACE ON TELE BOX 59 WITH INITIAL READING PACED 81. GARCIA CATH IN PLACE DRAINING TO GRAVITY. BED IN LOWEST POSITION WITH SIDE RAILS UP X 2. CALL ECKERT WITHIN REACH. ALARM ON. CONTINUE TO MONITOR FOR CHANGES Q1H AND PRN
[2019-10-01] MEDS: InsuLIN REG 1unit/0.01ml Soln (100units/ml) SC SCH ×5 (00:28→17:42)
[2019-10-01] MEDS: ACCU-CHEK COMFORT CURVE STRIP VI SCH ×4 (00:28→17:42)
--- NOTE | 2019-10-01 00:36 | NUR ---
ACCU-CHECK, BS 167. PATIENT REFUSED TO TAKE INSULIN. EDUCATED PATIENT ON IMPORTANCE OF TAKING INSULIN, PATIENT STATED "LEAVE ME ALONE" " BETTER DON'T STICK ON ME". MEDICATED WASTED. CONTINUE TO MONITOR.
--- NOTE | 2019-10-01 03:44 | NUR ---
PATIENT SLEEPING. NO S/S OF DISTRESS NOTED. CONTINUE CARE.
[2019-10-01] MEDS: FUROSEMIDE 20 MG/2 ML VIAL IV SCH ×2 (06:14→17:42)
--- NOTE | 2019-10-01 06:15 | NUR ---
PATIENT REFUSED ACCU-CHECK AND STATED "LEAVE ME ALONE". WILL PASS IT TO DAY SHIFT RN TO MD. CONTINUE TO MONITOR.
--- NOTE | 2019-10-01 07:40 | NUR ---
Opening Shift Note: Assumed care of patient. Patient asleep at this time. No S/S of distress/SOB or pain. Bed in lowest locked position, side rails up x 2, call light within reach. Bed alarm activated for patient safety. Patient will be instructed on POC and to call for assist PRN, will continue to monitor for changes Q1hr and PRN.
--- NOTE | 2019-10-01 08:38 | NUR ---
Per laboratory associate "Patient is refusing blood work at this time. Will attempt again."
--- NOTE | 2019-10-01 08:48 | NUR ---
BLOOD PRESSURE: B/P at this time is 176/92. No PRNs available. Attempted to reach Dr. Prasad at this time, awaiting call back.
[2019-10-01] MEDS: AZITHROMYCIN 500MG/ 250ML 250 ML IV SCH (10:00)
[2019-10-01] MEDS: AMIODARONE HCL 200 MG TAB PO SCH (10:00)
[2019-10-01] MEDS: cefTRIAXone 1GM/50ML D5W 50 ML IV SCH (10:00)
[2019-10-01] MEDS: APIXABAN 5 MG TAB PO SCH ×2 (10:00→22:00)
--- NOTE | 2019-10-01 10:00 | NUR ---
PATIENT REFUSED 1000 MEDICATIONS.
--- NOTE | 2019-10-01 10:00 | NUR ---
CALLED AND LEFT MESSAGE FOR DR. BARAKAT AT THIS TIME. AWAITING CALL BACK.
[2019-10-01] MEDS ORDERED: hydrALAZINE HCL 20 MG/ML VL IV PRN (11:45)
--- NOTE | 2019-10-01 12:00 | NUR ---
PATIENT REFUSED ACCU-CHECK AT THIS TIME
[2019-10-01 13:00] VITALS: BP 136/67
[2019-10-01] MEDS ORDERED: ALPRAZolam 0.25 MG TAB PO PRN (15:00)
--- NOTE | 2019-10-01 17:17 | NUR ---
PATIENT REQUESTING DIET AT THIS TIME. ATTEMPTED TO REACH DR. BARAKAT, AWAITING CALL BACK.
--- NOTE | 2019-10-01 17:40 | NUR ---
NEW ORDERS RECEIVED FROM DR. BARAKAT. PATIENT UPDATED ON NEW ORDERS AT THIS TIME.
--- NOTE | 2019-10-01 17:44 | NUR ---
PATIENT REFUSED ACCU-CHECK AND 1800 MEDICATIONS AT THIS TIME.
[2019-10-01 17:58] VITALS: BP 144/82
--- NOTE | 2019-10-01 18:49 | NUR ---
CLOSING NOTE: Patient resting in bed. No S/S of distress at this time. Sitter at bedside for patient safety. Care endorsed
[2019-10-01 21:45] VITALS: BP 152/84
--- NOTE | 2019-10-01 22:30 | NUR ---
PATIENT REFUSED MEDICATIONS
--- NOTE | 2019-10-01 23:32 | NUR ---
PATIENT REFUSED BLOOD DRAW Patient stated that she was not going to take any more medication or allow any tests to be done to her. fiscal technician will return in the morning.
--- NOTE | 2019-10-02 00:30 | NUR ---
PATIENT REFUSING BLOOD SUGAR TEST Patient stated, "don't touch me and you better leave me alone". Patient continues to insult sitter and acts hostile towards staff.
--- NOTE | 2019-10-02 04:37 | NUR ---
Patient refused vitals.
[2019-10-02] MEDS: FUROSEMIDE 20 MG/2 ML VIAL IV SCH ×2 (05:52→18:00)
[2019-10-02] MEDS: InsuLIN REG 1unit/0.01ml Soln (100units/ml) SC SCH ×4 (05:53→18:00)
[2019-10-02] MEDS: ACCU-CHEK COMFORT CURVE STRIP VI SCH ×4 (05:53→18:00)
--- NOTE | 2019-10-02 05:53 | NUR ---
Patient refused Blood Glucose check and all medications.
--- NOTE | 2019-10-02 07:30 | NUR ---
Opening Shift Note: Assumed care of patient, awake and alert x 3. No S/S of distress/SOB or pain. Bed in lowest locked position, side rails up x 2, call light within reach. Sitter at bedside for patient safety. Patient instructed on POC and to call for assist PRN, will continue to monitor for changes Q1hr and PRN.
[2019-10-02 09:00] VITALS: BP 144/80
[2019-10-02] MEDS: AZITHROMYCIN 500MG/ 250ML 250 ML IV SCH (09:59)
[2019-10-02] MEDS: cefTRIAXone 1GM/50ML D5W 50 ML IV SCH (09:59)
[2019-10-02] MEDS: AMIODARONE HCL 200 MG TAB PO SCH (09:59)
[2019-10-02] MEDS: APIXABAN 5 MG TAB PO SCH ×2 (09:59→21:57)
--- NOTE | 2019-10-02 10:00 | NUR ---
PATIENT REFUSED MEDICATIONS AT THIS TIME.
--- NOTE | 2019-10-02 10:15 | NUR ---
PT REFUSED ABG AT THIS TIME. RECEIVED PT ON 4L NC WITH SPO2 99%. PT WAS PLACED ON RA AND SPO2 90%-93%. RT ATTEMPT BLOOD DRAW ON RIGHT RADIAL BUT MISSED AND PT REQUESTED FOR THE NEEDLE TO BE TAKEN OUT. SITTER AT BEDSIDE. PT PLACED ON 2L NC. MELONY MILLER MADE AWARE.
--- NOTE | 2019-10-02 10:23 | NUR ---
ATTEMPTED TO CALL PATIENTS SISTER PARKER AT THIS TIME. NO ANSWER. WILL ATTEMPT AGAIN.
--- NOTE | 2019-10-02 12:00 | NUR ---
PATIENT REFUSED ACCU-CHECK AT THIS TIME.
--- NOTE | 2019-10-02 12:43 | NUR ---
Nutrition Followup Note Wt 83.5kg Pt was awake and does not respond to questions. Pt responded but unable to understand what pt is saying. per sitter pt is still NPO awaiting speech therapy swallow eval. Will monitor pt swallow eval results, diet order and intake. Est energy needs ABW 73 [id number] kcal (23-25 kcal/kg ABW), Est protein needs: 58-73g (0.8-1.0g/kg ABW). Will reassess per dry body wt Labs: GLUC 167H, Alb 2.2L, Creat 1.67H, Ca 8.4L, BUN 27H] BM: Pt with no BM noted per RN doc Skin: BS 16 mod risk, full details in family member caretaker note. PES: Altered nutrition related lab values r.t current chronic medical condition aeb elev RFT mod hypoalb hypocalcemia Partially resolved, pt awaiting swallow eval from speech therapy: Impaired swallowing r.t current medical condition aeb pt`s intubated sedated with order of NPO Decreased nutrient needs r/t adiposity aeb pt`s high BMI of 31.0 kgm2 Comments: 1) advance diet as medically feasible: 2) refer to CDE on DC 3) continue current plan of care Expected Outcomes/Goals: 1)pt will have improved labs 2) pt will get > 75% of needs 3)pt will advance and kayli po F/u high 2-3 days
[2019-10-02 13:00] VITALS: BP 139/82
[2019-10-02 16:21] VITALS: BP 140/81
--- NOTE | 2019-10-02 17:37 | NUR ---
SWALLOW EVALUATION. PATIENT HAS NATURAL TEETH UPPER AND LOWER. PATIENT IS ABLE TO FOLLOW COMMANDS. PATIENT IS ABLE TO TOLERATE MECHANICAL SOFT DIET TEXTURE WITH THIN LIQUIDS WITH NO OVERT SIGNS OR SYMPTOMS OF ASPIRATION. NURSING NOTIFIED.
--- NOTE | 2019-10-02 18:50 | NUR ---
CLOSING NOTE: Patient resting in bed. No S/S of distress at this time. Sitter at bedside for patient safety. Care endorsed
--- NOTE | 2019-10-02 19:15 | NUR ---
Opening shift note Patient A&Ox4, respirations even and non-labored with no s/s of distress. Patient appeared calm and was willing to discuss her POC. Issa patent, draining dark yellow urine. Midline flushed, patent and intact. Bed in lowest locked position with 2 side rails up, call light within reach. Sitter bedside. Will continue to monitor.
[2019-10-02 21:46] VITALS: BP 138/77
[2019-10-02 23:06] LABS: Basophils # (auto) 0.1 10 ^3/uL (0-0.2); Basophils % (auto) 0.6 % (0.0-2.0); Eosinophils # (auto) 0.1 10 ^3/uL (0-0.8); Eosinophils % (auto) 1.3 % (0.0-7.0); Hematocrit 37.6 % (36.0-46.0); Hemoglobin 11.6 g/dL (12.2-16.2); Mean Corpuscular Hemoglobin 23.2 pg (28.0-32.0); Mean Corpuscular Hgb Conc. 30.9 g/dL (32.0-36.0); Mean Corpuscular Volume 75.1 fL (80.0-100.0); Monocytes # (auto) 1.3 10 ^3/uL (0-1.3); Monocytes % (auto) 14.1 % (0.0-12.0); Neutrophils # (auto) 6.6 10 ^3/uL (1.6-8.6); Platelet Count (auto) 356 10^3/uL (140-450); Red Blood Cells 5.01 10^6/uL (4.0-5.20); Red Cell Distribution Width 17.7 % (11.8-14.3); White Blood Cell 9.1 10^3/uL (4.4-10.8)
[2019-10-02 23:14] LABS: Albumin 2.8 g/dL (3.4-5.0); Calcium 9.5 mg/dL (8.5-10.1); Potassium 3.9 mmol/L (3.5-5.1)
[2019-10-02 23:16] LABS: BUN/Creatinine Ratio 23.2
[2019-10-02 23:19] LABS: Bilirubin, Total 0.5 mg/dL (0.2-1.0); Total Protein 7.5 g/dL (6.4-8.2)
[2019-10-03] MEDS: ACCU-CHEK COMFORT CURVE STRIP VI SCH ×4 (01:38→18:00)
[2019-10-03] MEDS: InsuLIN REG 1unit/0.01ml Soln (100units/ml) SC SCH ×4 (01:40→18:00)
[2019-10-03 05:02] VITALS: BP 130/76
[2019-10-03] MEDS: FUROSEMIDE 20 MG/2 ML VIAL IV SCH ×2 (06:41→18:00)
--- NOTE | 2019-10-03 07:25 | NUR ---
Opening Shift Note: Assumed care of patient, awake and alert. No S/S of distress/SOB or pain. Bed in lowest locked position, side rails up x 2, call light within reach. Sitter at bedside for patient safety. Patient instructed on POC and to call for assist PRN, will continue to monitor for changes Q1hr and PRN.
[2019-10-03 09:09] VITALS: BP 139/91
[2019-10-03] MEDS: AMIODARONE HCL 200 MG TAB PO SCH (09:55)
[2019-10-03] MEDS: APIXABAN 5 MG TAB PO SCH ×2 (09:55→23:25)
[2019-10-03] MEDS: AZITHROMYCIN 500MG/ 250ML 250 ML IV SCH (10:00)
[2019-10-03] MEDS: cefTRIAXone 1GM/50ML D5W 50 ML IV SCH (10:00)
[2019-10-03 10:24] LABS: Eosinophils # (auto) 0.1 10 ^3/uL (0-0.8); Neutrophils # (auto) 5.7 10 ^3/uL (1.6-8.6); White Blood Cell 7.7 10^3/uL (4.4-10.8)
[2019-10-03 10:28] LABS: Basophils # (auto) 0 10 ^3/uL (0-0.2); Basophils % (auto) 0.4 % (0.0-2.0); Eosinophils % (auto) 1.3 % (0.0-7.0); Hematocrit 39.3 % (36.0-46.0); Hemoglobin 12.2 g/dL (12.2-16.2); Lymphocytes # (auto) 0.9 10 ^3/uL (0.4-5.4); Lymphocytes % (auto) 12.1 % (10.0-50.0); Mean Corpuscular Hemoglobin 23.5 pg (28.0-32.0); Mean Corpuscular Hgb Conc. 31.1 g/dL (32.0-36.0); Mean Corpuscular Volume 75.5 fL (80.0-100.0); Monocytes # (auto) 0.9 10 ^3/uL (0-1.3); Monocytes % (auto) 12.1 % (0.0-12.0); Neutrophils % (auto) 74.1 % (37.0-80.0); Platelet Count (auto) 375 10^3/uL (140-450); Red Blood Cells 5.21 10^6/uL (4.0-5.20); Red Cell Distribution Width 18.2 % (11.8-14.3)
[2019-10-03 10:38] LABS: Albumin 2.8 g/dL (3.4-5.0); Calcium 9.6 mg/dL (8.5-10.1); Potassium 4.1 mmol/L (3.5-5.1)
[2019-10-03 10:41] LABS: BUN/Creatinine Ratio 21.3; Bilirubin, Total 0.6 mg/dL (0.2-1.0); Total Protein 7.7 g/dL (6.4-8.2)
[2019-10-03 12:47] VITALS: BP 132/72
--- NOTE | 2019-10-03 15:52 | NUR ---
Spoke with family for patient, regarding plan for rehab placement. Family is refusing at this time. Attempted to contact Dr. Prasad to update him on family wishes. Awaiting call back. Addendum: 10/03/19 at 1612 by JOSE CRUZ PRADO RN RN AWARE. WILL UPDATE FAMILY. [facility]
--- NOTE | 2019-10-03 16:48 | NUR ---
assessment Patient is a 74 year old female who is alert and oriented. Patients cognitive abilities are intact. Prior to admission patient lived home with family and functioned independently. Patient informed me she is able to care for her own ADLs. Per patient she will return home to her prior living arrangements post discharge and family will transport her home. Patient informed me she has a fww, cane, and home oxygen. I have offered patient home health and she refused stating she has all she needs at home and does not need any help. I will continue to monitor patient and follow up as appropriate. I informed patient she has a right to speak to a perinatal social worker regarding all care. I informed patient she has a right to participate in any and all discharge planning. Patient does not have a POA and advanced directive. I have offered patient information on POA and advanced directives. I informed the patient the advantages and benefits of having an Advanced Directive. Patient verbalized understanding and agreed to discharge plan. Addendum: 10/03/19 at 1701 by Catia SCOTT Amended: Links added.
[2019-10-03 16:56] VITALS: BP 136/89
--- NOTE | 2019-10-03 17:14 | NUR ---
PATIENT STATES THAT SHE WANTS TO BE DISCHARGED HOME. PATIENT UPDATED ON DISCHARGE PLANNING FOR TOMORROW, 10/02/2019. PATIENT THEN STATES "MY NIECE IS COMING TO PICK ME UP, YOU CALL HER AND SHE WILL TELL YOU." CALLED MICKEY TREVIÑO AT THIS TIME. PER NIECE "I AM NOT COMING TO PICK HER UP UNTIL SHE IS DISCHARGED."
--- NOTE | 2019-10-03 17:20 | NUR ---
FAMILY SET UP SECONDARY PASSWORD "CREAM"
--- NOTE | 2019-10-03 18:33 | NUR ---
PATIENT UPDATED ON CONVERSATION WITH MICKEY ANGEL. PER PATIENT "I WANT TO GO HOME. DISCHARGE ME HOME." PATIENT EDUCATED ON DISCHARGE PLANNING. PATIENT CONTINUALLY STATING "I WANT TO GO HOME." PATIENT NOT ABLE MINDED TO SIGN OUT AMA, AND PATIENT CANNOT EXPLAIN HOW AMA WORKS. SPOKE WITH MICKEY AND SHE STATED "I DON'T WANT TO SIGN HER OUT WITH OUT A DOCTORS ORDER, DO NOT LET HER SIGN OUT AMA, I AM NOT GOING TO TAKE HER HOME WITH OUT A DOCTORS ORDER."
--- NOTE | 2019-10-03 18:48 | NUR ---
CLOSING NOTE: Patient resting in be. No S/S of distress at this time. Sitter at bedside. care endorsed
--- NOTE | 2019-10-03 19:25 | NUR ---
Opening shift note Assumed care of patient who is A&Ox4, respirations even and non-labored with no s/s of distress. Discussed her POC and answered questions regarding her pending discharge. Issa patent, draining yellow urine, IV flushed patent and intact. Bed in lowest locked position with 2 side rails up. Sitter bedside. Call light within reach, will continue to monitor.
[2019-10-03 22:00] VITALS: BP 136/71
--- NOTE | 2019-10-03 22:30 | NUR ---
Spoke with patients Stephanie larson Discussed patients pending discharge at the request of the patient. Reinforced the discharge plans with the patient and discussed the POC again. Will continue to monitor physician notes for changes.
[2019-10-04] MEDS: InsuLIN REG 1unit/0.01ml Soln (100units/ml) SC SCH ×4 (02:13→18:00)
[2019-10-04 05:00] VITALS: BP 136/75
[2019-10-04] MEDS: FUROSEMIDE 20 MG/2 ML VIAL IV SCH ×2 (06:38→18:00)
[2019-10-04] MEDS: ACCU-CHEK COMFORT CURVE STRIP VI SCH ×4 (06:38→18:00)
[2019-10-04 06:41] LABS: Basophils # (auto) 0.1 10 ^3/uL (0-0.2); Basophils % (auto) 0.7 % (0.0-2.0); Eosinophils # (auto) 0.1 10 ^3/uL (0-0.8); Neutrophils % (auto) 64.7 % (37.0-80.0); Nucleated Red Blood Cells % 0.1 %; Red Cell Distribution Width 17.6 % (11.8-14.3)
[2019-10-04 06:43] LABS: Eosinophils % (auto) 1.5 % (0.0-7.0); Hemoglobin 11.6 g/dL (12.2-16.2); Lymphocytes # (auto) 1.4 10 ^3/uL (0.4-5.4); Lymphocytes % (auto) 19.2 % (10.0-50.0); Mean Corpuscular Hemoglobin 23.2 pg (28.0-32.0); Mean Corpuscular Hgb Conc. 31.2 g/dL (32.0-36.0); Mean Corpuscular Volume 74.3 fL (80.0-100.0); Monocytes % (auto) 13.9 % (0.0-12.0); Neutrophils # (auto) 4.8 10 ^3/uL (1.6-8.6); Platelet Count (auto) 344 10^3/uL (140-450); Red Blood Cells 4.98 10^6/uL (4.0-5.20); White Blood Cell 7.4 10^3/uL (4.4-10.8)
[2019-10-04 07:02] LABS: Albumin 2.7 g/dL (3.4-5.0); Calcium 9.3 mg/dL (8.5-10.1); Potassium 3.9 mmol/L (3.5-5.1)
[2019-10-04 07:05] LABS: BUN/Creatinine Ratio 18.8; Bilirubin, Total 0.5 mg/dL (0.2-1.0)
[2019-10-04 09:00] VITALS: BP 148/73
[2019-10-04] MEDS: cefTRIAXone 1GM/50ML D5W 50 ML IV SCH (09:19)
[2019-10-04] MEDS: AZITHROMYCIN 500MG/ 250ML 250 ML IV SCH (09:19)
[2019-10-04] MEDS: APIXABAN 5 MG TAB PO SCH (09:20)
[2019-10-04] MEDS: AMIODARONE HCL 200 MG TAB PO SCH (09:20)
--- NOTE | 2019-10-04 09:26 | NUR ---
Garcia catheter dc'd PATIENT REQUESTING TO REMOVE GARCIA CATHETER. Order to discontinue Garcia catheter. Garcia dc'd with clean technique following deflation of balloon. Patient tolerated well with no complaints of pain. Continue care. Addendum: 10/04/19 at 0928 by Jackie Klein RN OUTPUT 250MLS OF YELLOW URINE. FABRICIO CONTINUE CARE.
--- NOTE | 2019-10-04 10:00 | NUR ---
Dr. Prasad at bedside. per MD if patient is cleared from cardiology. Patient may go home. Called Dr. Levine, no answer left message . Will call later.
--- NOTE | 2019-10-04 12:04 | NUR ---
re-assessment Per consult home health. I informed patient of home health order and she is refusing home health services. Addendum: 10/04/19 at 1205 by Catia Thomas Amended: Links added.
--- NOTE | 2019-10-04 12:20 | NUR ---
Patient resting comfortably in bed with no distress noted at this time. Checked blood sugar: 201 mg/dl - will cover per sliding scale. Patient stable.
--- NOTE | 2019-10-04 12:30 | NUR ---
Paged for Dr. Levine. Left message with Leilani.awaiting call back.
[2019-10-04 13:00] VITALS: BP 127/81
--- NOTE | 2019-10-04 14:44 | NUR ---
Updated Allyssa ALVAREZ on patients plan of care after password was provided .
--- NOTE | 2019-10-04 14:49 | NUR ---
Paged Dr. Levine, left message.
--- NOTE | 2019-10-04 15:04 | NUR ---
Nutrition Followup Note Wt 83.5kg Pt was awake and does not respond to questions. Pt diet advanced to mechanical soft. Pt with inadequate po intake aeb pt with avg po intake of 44% x 2 days per RN note. Pt is pending DC home with home health. Est energy needs ABW 73 [id number] kcal (23-25 kcal/kg ABW), Est protein needs: 58-73g (0.8-1.0g/kg ABW). Will reassess per dry body wt Labs: BUn 29H, Creat 1.54H, Alb 2.7L, GLUC 161H BM: Pt with 2 BMs 8/3 per RN note Skin: BS 15 mod risk, full details in director of home care hospice note. PES: Altered nutrition related lab values r.t current chronic medical condition aeb elev RFT mod hypoalb hypocalcemia Partially resolved, pt awaiting swallow eval from speech therapy: Impaired swallowing r.t current medical condition aeb pt`s intubated sedated with order of NPO Decreased nutrient needs r/t adiposity aeb pt`s high BMI of 31.0 kgm2 Comments: 1) advance diet as medically feasible: 2) refer to CDE on DC 3) continue current plan of care Expected Outcomes/Goals: 1)pt will have improved labs 2) pt will get > 75% of needs 3)pt will advance and kayli po F/u high 2-3 days
[2019-10-04 17:00] VITALS: BP 121/74
--- NOTE | 2019-10-04 17:00 | NUR ---
DR. VELASCO HAS GIVEN THE PATIENT CLEARANCE FROM HIS PERSPECTIVE. PATIENT TO FOLLOW UP IN HIS OFFICE ON ThursdayOCT 05 AT ANY TIME. PATIENT INFORMED AND AWARE.
[2019-10-04 17:07] VITALS: BP 136/75
[2019-10-04 17:19] VITALS: BP 136/75
--- NOTE | 2019-10-04 17:24 | NUR ---
RE-ASSESSMENT Per Jess Hilton called and informed her patient is on service with [facility] health. Per dajuan consult resume [facility] health. Lida agrees to [facility]. order sent to [facility]. Jamar Shell at [facility] service will resume on 10/05/2019. Addendum: 10/04/19 at 1727 by Catia Thomas Amended: Links added.
--- NOTE | 2019-10-04 18:30 | NUR ---
Discharge instructions given as ordered. Encourage to follow up with PMD as instructed. All questions and concerns addressed. Patient verbalized understanding. Medication reconciliation form completed and copy given to patient. IV removed with catheter intact, pressure dressing applied, Telemetry unit returned to ICU. Patient taken to vehicle via wheelchair with all personal belongings, accompanied by staff and family member. No distress noted at time of departure.
== END 2019-10-04 18:29 | disposition home health service (06) | DRG 273 ==
LOC: EDBD 15:23 → ER 15:23 → TELE 15:24 → CATH ICU 09-27 18:24 → TELE-WESTW 09-30 23:14
PROVIDERS: ADMIT Internal Medicine; ATTEND Internal Medicine
PROC: 5A09357 Assistance with Respiratory Ventilation, Less than 24 Consecutive Hours, Continuous Positive Airway Pressure (ICD-10-PCS; 2019-09-25)
PROC: 5A1955Z Respiratory Ventilation, Greater than 96 Consecutive Hours (ICD-10-PCS; 2019-09-25)
PROC: 0BH17EZ Insertion of Endotracheal Airway into Trachea, Via Natural or Artificial Opening (ICD-10-PCS; 2019-09-25)
PROC: 02583ZZ Destruction of Conduction Mechanism, Percutaneous Approach (ICD-10-PCS; principal; 2019-09-28)
PROC: 4A0234Z Measurement of Cardiac Electrical Activity, Percutaneous Approach (ICD-10-PCS; 2019-09-28)
PROC: 4B02XTZ Measurement of Cardiac Defibrillator, External Approach (ICD-10-PCS; 2019-09-28)
PROC: 4A023FZ Measurement of Cardiac Rhythm, Percutaneous Approach (ICD-10-PCS; 2019-09-28)
DX: I13.0 Hypertensive heart and chronic kidney disease with heart failure and stage 1 through stage 4 chronic kidney disease, or unspecified chronic kidney disease (principal); J18.9 Pneumonia, unspecified organism; J96.01 Acute respiratory failure with hypoxia; A41.9 Sepsis, unspecified organism; I50.23 Acute on chronic systolic (congestive) heart failure; I48.19 Other persistent atrial fibrillation; N17.9 Acute kidney failure, unspecified; J98.11 Atelectasis; E87.3 Alkalosis; E66.9 Obesity, unspecified; N18.3 Chronic kidney disease, stage 3 (moderate); Z68.35 Body mass index [BMI] 35.0-35.9, adult; H91.90 Unspecified hearing loss, unspecified ear; N18.9 Chronic kidney disease, unspecified; Z20.828 Contact with and (suspected) exposure to other viral communicable diseases; E11.40 Type 2 diabetes mellitus with diabetic neuropathy, unspecified; E11.22 Type 2 diabetes mellitus with diabetic chronic kidney disease; Z80.3 Family history of malignant neoplasm of breast; Z83.3 Family history of diabetes mellitus; Z82.49 Family history of ischemic heart disease and other diseases of the circulatory system; Z85.048 Personal history of other malignant neoplasm of rectum, rectosigmoid junction, and anus; Z87.891 Personal history of nicotine dependence; Z90.49 Acquired absence of other specified parts of digestive tract; Z90.710 Acquired absence of both cervix and uterus; Z80.1 Family history of malignant neoplasm of trachea, bronchus and lung; Z80.0 Family history of malignant neoplasm of digestive organs; Z95.0 Presence of cardiac pacemaker; Z91.041 Radiographic dye allergy status; Z85.038 Personal history of other malignant neoplasm of large intestine; Z79.4 Long term (current) use of insulin
CPT/HCPCS: 31500; 36415; 36600; 70450; 71045; 80053; 81001; 82805; 82962; 83735; 83880; 84132; 84443; 84484; 85025; 85610; 85730; 87070; 87081; 87205; 92610; 93005; 93650; 94002; 94003; 94640; 94660; 99152; 99153; 99291; G0378; J0330; J0690; J0696; J1815; J2250; J3480; J7060

== ENCOUNTER 2020-08-31 13:53 | Emergency (ER) | payer MEDICARE, MEDICAID ==
[~2020-08-31] VITALS: Ht 167.6 cm; Wt 68.0 kg
[~2020-08-31 13:53] MED LIST changes: +AMLO-489 PO; +APIX5TAB PO; +ATOR20TA50 PO; +CARV25TA PO; +DILT60TA PO; -ENAL20TA8 PO; +FUR20T GT; +HYDR-531 PO; -LEVO500T21 PO; +LEVO500T31 PO; +LINA5TAB PO; +LOSA-39 PO; -METO100T87 PO; +METO25TA5 PO
[2020-08-31 14:50] VITALS: BP 152/58
[2020-08-31] MEDS ORDERED: HYDROcodone-ACET 5/325MG TAB PO ONE (15:45)
[2020-08-31 16:00] LABS: Eosinophils # (auto) 0 10 ^3/uL (0-0.8); Eosinophils % (auto) 0.5 % (0.0-7.0); Hemoglobin 13.1 g/dL (12.2-16.2); Lymphocytes # (auto) 1.3 10 ^3/uL (0.4-5.4); Neutrophils # (auto) 6.5 10 ^3/uL (1.6-8.6); Red Blood Cells 4.96 10^6/uL (4.0-5.20); Red Cell Distribution Width 17.4 % (11.8-14.3); White Blood Cell 8.8 10^3/uL (4.4-10.8)
[2020-08-31 16:01] LABS: Basophils # (auto) 0 10 ^3/uL (0-0.2); Basophils % (auto) 0.3 % (0.0-2.0); Hematocrit 38.9 % (36.0-46.0); Lymphocytes % (auto) 14.2 % (10.0-50.0); Mean Corpuscular Hemoglobin 26.5 pg (28.0-32.0); Mean Corpuscular Hgb Conc. 33.7 g/dL (32.0-36.0); Mean Corpuscular Volume 78.4 fL (80.0-100.0); Monocytes % (auto) 11.1 % (0.0-12.0); Neutrophils % (auto) 73.9 % (37.0-80.0); Platelet Count (auto) 171 10^3/uL (140-450)
[2020-08-31 16:21] LABS: Calcium 8.8 mg/dL (8.5-10.1); Potassium 3.9 mmol/L (3.5-5.1)
[2020-08-31 16:23] LABS: BUN/Creatinine Ratio 21.6; Uric Acid 9.2 mg/dL (2.6-6.0)
[2020-08-31] MEDS: methylPREDNISolone SOD SUCC 125 MG/2 ML VL IV ONE (16:45)
[2020-08-31] MEDS ORDERED: methylPREDNISolone SOD SUCC 125 MG/2 ML VL IM ONE (17:00)
== END 2020-08-31 17:21 | disposition home or self-care (01) ==
LOC: ER 13:53
DX: M10.9 Gout, unspecified (principal); I11.0 Hypertensive heart disease with heart failure; I50.9 Heart failure, unspecified; E11.9 Type 2 diabetes mellitus without complications; I48.91 Unspecified atrial fibrillation; Z90.49 Acquired absence of other specified parts of digestive tract; Z90.710 Acquired absence of both cervix and uterus; Z95.0 Presence of cardiac pacemaker; Z79.2 Long term (current) use of antibiotics; Z79.899 Other long term (current) drug therapy; Z88.8 Allergy status to other drugs, medicaments and biological substances
CPT/HCPCS: 36415; 73130; 80048; 84550; 85025; 85049; 96372; 99284; J2930

== ENCOUNTER 2020-11-10 11:14 | Inpatient (IN) | payer MEDICARE, MEDICAID ==
[~2020-11-10] VITALS: Ht 160 cm; Wt 92.6 kg
[2020-11-10 13:26] LABS: Basophils # (auto) 0 10 ^3/uL (0-0.2); Eosinophils # (auto) 0.1 10 ^3/uL (0-0.8); Monocytes # (auto) 0.8 10 ^3/uL (0-1.3); Monocytes % (auto) 11.4 % (0.0-12.0); Neutrophils # (auto) 5.4 10 ^3/uL (1.6-8.6); Red Cell Distribution Width 15.7 % (11.8-14.3); White Blood Cell 7.4 10^3/uL (4.4-10.8)
[2020-11-10 13:28] LABS: Basophils % (auto) 0.6 % (0.0-2.0); Eosinophils % (auto) 0.9 % (0.0-7.0); Hematocrit 34.8 % (36.0-46.0); Hemoglobin 10.9 g/dL (12.2-16.2); Lymphocytes % (auto) 14.3 % (10.0-50.0); Mean Corpuscular Hemoglobin 25.2 pg (28.0-32.0); Mean Corpuscular Hgb Conc. 31.3 g/dL (32.0-36.0); Mean Corpuscular Volume 80.6 fL (80.0-100.0); Neutrophils % (auto) 72.8 % (37.0-80.0); Nucleated Red Blood Cells % 0.1 %; Red Blood Cells 4.32 10^6/uL (4.0-5.20)
[2020-11-10 13:33] LABS: INR 1.08 (0.9-1.15); Partial Thromboplastin Time 26.8 sec (23.6-33.0)
[2020-11-10 13:51] LABS: Albumin 2.8 g/dL (3.4-5.0); Anion Gap 8 (5-15); Blood Urea Nitrogen 33 mg/dL (7-18); Calcium 8.8 mg/dL (8.5-10.1); Carbon Dioxide 21 mmol/L (21-32); Chloride 112 mmol/L (98-107); Glucose 129 mg/dL (74-106); Magnesium 2.2 mg/dL (1.6-2.6); Potassium 3.5 mmol/L (3.5-5.1); Sodium 141 mmol/L (136-145)
[2020-11-10 13:57] LABS: Alanine Aminotransferase 13 U/L (13-56); Alkaline Phosphatase 74 U/L (45-117); Aspartate Aminotransferase 7 U/L (15-37); BUN/Creatinine Ratio 19.5; Bilirubin, Total 1.2 mg/dL (0.2-1.0); GFR African American 38 mL/min; GFR Non-African American 32 mL/min; Total Protein 6.8 g/dL (6.4-8.2)
[2020-11-10 14:02] VITALS: BP 118/69
[2020-11-10 14:27] VITALS: BP 118/69
[2020-11-10] MEDS ORDERED: FUROSEMIDE 40 MG/4 ML VIAL IV ONE (14:30)
[2020-11-10] MEDS ORDERED: ACETAMINOPHEN 325 MG TAB PO PRN (14:45)
[2020-11-10] MEDS ORDERED: NITROGLYCERIN 0.4 MG SL TAB SL PRN (14:45)
[2020-11-10] MEDS ORDERED: MORPHINE SULFATE INJECTION 2 MG/ML SYRG IV PRN (14:45)
[2020-11-10] MEDS ORDERED: DOCUSATE SOD 100 MG CAP PO PRN (14:45)
[2020-11-10] MEDS ORDERED: ONDANSETRON HCL 4 MG/2 ML VIAL IV PRN (14:45)
[2020-11-10] MEDS: ALBUTEROL SULF 2.5 MG/0.5ML(0.5%) NEB SOLN NEB SCH ×2 (21:45→22:31)
[2020-11-10] MEDS: BUDESONIDE (INHALATION) 0.5 MG/2 ML NEB NEB SCH (21:46)
[2020-11-11] MEDS: ALBUTEROL SULF 2.5 MG/0.5ML(0.5%) NEB SOLN NEB SCH ×5 (03:18→20:12)
[2020-11-11 07:26] LABS: Basophils # (auto) 0 10 ^3/uL (0-0.2); Eosinophils # (auto) 0.1 10 ^3/uL (0-0.8); Monocytes # (auto) 0.8 10 ^3/uL (0-1.3); Neutrophils # (auto) 4.2 10 ^3/uL (1.6-8.6); White Blood Cell 6.2 10^3/uL (4.4-10.8)
[2020-11-11 07:28] LABS: Basophils % (auto) 0.4 % (0.0-2.0); Eosinophils % (auto) 1.5 % (0.0-7.0); Hemoglobin 11.3 g/dL (12.2-16.2); Lymphocytes # (auto) 1.1 10 ^3/uL (0.4-5.4); Mean Corpuscular Hgb Conc. 32.2 g/dL (32.0-36.0); Mean Corpuscular Volume 80.7 fL (80.0-100.0); Monocytes % (auto) 12.8 % (0.0-12.0); Neutrophils % (auto) 67.3 % (37.0-80.0); Nucleated Red Blood Cells % 0.2 %; Red Blood Cells 4.34 10^6/uL (4.0-5.20); Red Cell Distribution Width 15.8 % (11.8-14.3)
[2020-11-11 07:45] LABS: Albumin 2.7 g/dL (3.4-5.0); Calcium 8.8 mg/dL (8.5-10.1); Potassium 3.4 mmol/L (3.5-5.1)
[2020-11-11 07:49] LABS: BUN/Creatinine Ratio 18.5
[2020-11-11 08:01] VITALS: BP 136/64
[2020-11-11] MEDS: MORPHINE SULFATE 4 MG/ML SYR/VIAL IV PRN (08:31)
[2020-11-11] MEDS: PANTOPRAZOLE 40 MG/10 ML VIAL INJ IV SCH (10:19)
[2020-11-11] MEDS: ENOXAPARIN SOD 30 MG/0.3 ML SYRINGE SC SCH (10:19)
[2020-11-11] MEDS: FUROSEMIDE 40 MG/4 ML VIAL IV SCH (10:19)
[2020-11-11] MEDS: BUDESONIDE (INHALATION) 0.5 MG/2 ML NEB NEB SCH (10:40)
[2020-11-11] MEDS: HYDROcodone-ACET 5/325MG TAB PO PRN (12:41)
[2020-11-11] MEDS ORDERED: POTASSIUM EFFERVESENT TAB 25 MEQ GT ONE (17:15)
[2020-11-11] MEDS ORDERED: DEXTROSE (50%) 50ML SYRG IV ONE (17:30)
[2020-11-11 20:10] VITALS: BP 136/81
[2020-11-11] MEDS ORDERED: ACCU-CHEK COMFORT CURVE STRIP VI ONE (22:00)
[2020-11-11] MEDS ORDERED: InsuLIN REG 1unit/0.01ml Soln (100units/ml) SC ONE (22:00)
[2020-11-11] MEDS: GABAPENTIN 100 MG CAP PO SCH (22:16)
[2020-11-11 23:54] VITALS: BP 136/81
[2020-11-12] MEDS: BUDESONIDE (INHALATION) 0.5 MG/2 ML NEB NEB SCH ×3 (00:13→19:07)
[2020-11-12] MEDS: ALBUTEROL SULF 2.5 MG/0.5ML(0.5%) NEB SOLN NEB SCH ×7 (00:13→22:08)
[2020-11-12] MEDS: MORPHINE SULFATE 4 MG/ML SYR/VIAL IV PRN (02:48)
[2020-11-12 05:31] VITALS: BP 133/66
[2020-11-12 06:49] LABS: Cholesterol 163 mg/dL (< 200); HDL Cholesterol 45 mg/dL (40-59); LDL Cholesterol 95 mg/dL (< 100); Triglycerides 127 mg/dL (< 150)
[2020-11-12 09:00] VITALS: BP 139/51
[2020-11-12] MEDS: HYDROcodone-ACET 5/325MG TAB PO PRN ×4 (09:25→21:42)
[2020-11-12] MEDS: FUROSEMIDE 40 MG/4 ML VIAL IV SCH (09:25)
[2020-11-12] MEDS: PANTOPRAZOLE 40 MG/10 ML VIAL INJ IV SCH (09:25)
[2020-11-12] MEDS: GABAPENTIN 100 MG CAP PO SCH ×2 (09:26→21:42)
[2020-11-12] MEDS: ENOXAPARIN SOD 30 MG/0.3 ML SYRINGE SC SCH (09:26)
[2020-11-12] MEDS ORDERED: DEXTROSE (50%) 50ML SYRG IV ONE (10:45)
[2020-11-12] MEDS ORDERED: ACCU-CHEK COMFORT CURVE STRIP VI ONE (11:30)
[2020-11-12] MEDS ORDERED: InsuLIN REG 1unit/0.01ml Soln (100units/ml) SC ONE (11:30)
[2020-11-12 13:00] VITALS: BP 135/67
[2020-11-12] MEDS: AZITHROMYCIN 500MG/ 250ML 250 ML IV SCH (13:52)
[2020-11-12] MEDS: amLODIPine BESYLATE 5 MG TAB PO SCH (13:53)
[2020-11-12 14:49] LABS: Potassium 3.8 mmol/L (3.5-5.1)
[2020-11-12 14:54] LABS: Albumin 2.9 g/dL (3.4-5.0); BUN/Creatinine Ratio 13.3; Bilirubin, Total 1.4 mg/dL (0.2-1.0); Calcium 8.9 mg/dL (8.5-10.1); Total Protein 7.6 g/dL (6.4-8.2)
[2020-11-12 15:14] LABS: Urine Bacteria MANY /hpf (None Seen); Urine Blood 3+ /uL (Negative); Urine Hyaline Cast MANY /lpf (0 - 2); Urine Mucus FEW (None Seen); Urine Specific Gravity 1.016 (1.001-1.035); Urine WBC 1140 /hpf (0 - 5); Urine WBC Clumps PRESENT /hpf (None Seen)
[2020-11-12 17:00] VITALS: BP 113/65
[2020-11-12] MEDS: ACCU-CHEK COMFORT CURVE STRIP VI SCH ×2 (17:30→21:43)
[2020-11-12] MEDS ORDERED: DEXTROSE (50%) 50ML SYRG IV PRN (17:30)
[2020-11-12] MEDS: InsuLIN REG 1unit/0.01ml Soln (100units/ml) SC SCH ×2 (18:15→21:43)
[2020-11-12] MEDS: ATORVASTATIN 20 MG TAB PO SCH (21:42)
[2020-11-12] MEDS: APIXABAN 5 MG TAB PO SCH (21:43)
[2020-11-12] MEDS: AMIODARONE HCL 200 MG TAB PO SCH (21:43)
[2020-11-12] MEDS: METOPROLOL TARTRATE 25 MG TAB PO SCH (21:43)
[2020-11-12 22:00] VITALS: BP 106/71
[2020-11-12] MEDS ORDERED: dilTIAZem HCL 60 MG TAB PO SCH (22:00)
[2020-11-13] MEDS: ALBUTEROL SULF 2.5 MG/0.5ML(0.5%) NEB SOLN NEB SCH ×6 (02:03→22:31)
[2020-11-13 05:00] VITALS: BP 117/67
[2020-11-13] MEDS: ACCU-CHEK COMFORT CURVE STRIP VI SCH ×4 (05:58→21:34)
[2020-11-13] MEDS: InsuLIN REG 1unit/0.01ml Soln (100units/ml) SC SCH ×4 (06:00→21:42)
[2020-11-13] MEDS: HYDROcodone-ACET 5/325MG TAB PO PRN ×3 (06:02→21:33)
[2020-11-13 06:16] LABS: Basophils # (auto) 0 10 ^3/uL (0-0.2); Basophils % (auto) 0.2 % (0.0-2.0); Eosinophils # (auto) 0.1 10 ^3/uL (0-0.8); Hemoglobin 10.9 g/dL (12.2-16.2); Neutrophils # (auto) 6.9 10 ^3/uL (1.6-8.6)
[2020-11-13 06:19] LABS: Eosinophils % (auto) 0.6 % (0.0-7.0); Hematocrit 32.9 % (36.0-46.0); Lymphocytes # (auto) 0.9 10 ^3/uL (0.4-5.4); Lymphocytes % (auto) 9.9 % (10.0-50.0); Mean Corpuscular Hemoglobin 26.4 pg (28.0-32.0); Mean Corpuscular Hgb Conc. 33.2 g/dL (32.0-36.0); Mean Corpuscular Volume 79.3 fL (80.0-100.0); Monocytes # (auto) 1.5 10 ^3/uL (0-1.3); Monocytes % (auto) 16.2 % (0.0-12.0); Neutrophils % (auto) 73.1 % (37.0-80.0); Red Blood Cells 4.14 10^6/uL (4.0-5.20); Red Cell Distribution Width 15.2 % (11.8-14.3); White Blood Cell 9.4 10^3/uL (4.4-10.8)
[2020-11-13 06:26] LABS: Potassium 3.5 mmol/L (3.5-5.1)
[2020-11-13 06:35] LABS: Albumin 2.5 g/dL (3.4-5.0); BUN/Creatinine Ratio 16.4; Bilirubin, Total 1.5 mg/dL (0.2-1.0); Calcium 8.4 mg/dL (8.5-10.1); Magnesium 1.9 mg/dL (1.6-2.6); Total Protein 6.6 g/dL (6.4-8.2)
[2020-11-13 09:00] VITALS: BP_SYST 113; BP_SYST 126; BP_DIAS 61; BP_DIAS 68
[2020-11-13] MEDS: GABAPENTIN 100 MG CAP PO SCH ×2 (10:19→21:33)
[2020-11-13] MEDS: PANTOPRAZOLE 40 MG/10 ML VIAL INJ IV SCH (10:19)
[2020-11-13] MEDS: APIXABAN 5 MG TAB PO SCH ×2 (10:19→21:34)
[2020-11-13] MEDS: AZITHROMYCIN 500MG/ 250ML 250 ML IV SCH (10:19)
[2020-11-13] MEDS: AMIODARONE HCL 200 MG TAB PO SCH ×2 (10:21→21:33)
[2020-11-13] MEDS: MORPHINE SULFATE 4 MG/ML SYR/VIAL IV PRN (10:22)
[2020-11-13] MEDS: METOPROLOL TARTRATE 25 MG TAB PO SCH ×2 (10:23→21:33)
[2020-11-13] MEDS: amLODIPine BESYLATE 5 MG TAB PO SCH (10:23)
[2020-11-13] MEDS: BUDESONIDE (INHALATION) 0.5 MG/2 ML NEB NEB SCH ×2 (14:04→22:31)
[2020-11-13 17:00] VITALS: BP 114/73
[2020-11-13] MEDS ORDERED: levoFLOXacin 750MG 150 ML IV ONE (17:00)
[2020-11-13] MEDS: MAGNESIUM SULFATE 1GM/100ML 100 ML IV SCH ×2 (18:13→20:22)
[2020-11-13] MEDS: DOXYCYCLINE 100MG/250ML 250 ML IV SCH (20:22)
[2020-11-13] MEDS: cefTRIAXone 1GM/50ML D5W 50 ML IV SCH (21:34)
[2020-11-13] MEDS: ATORVASTATIN 20 MG TAB PO SCH (21:34)
[2020-11-13 22:00] VITALS: BP 131/66
[2020-11-13] MEDS ORDERED: CIPROFLOXACIN 400MG/200ML 200 ML IV SCH (22:00)
[2020-11-13 23:23] VITALS: BP 128/79
[2020-11-14] MEDS: ALBUTEROL SULF 2.5 MG/0.5ML(0.5%) NEB SOLN NEB SCH ×6 (02:33→22:13)
[2020-11-14 05:00] VITALS: BP 122/71
[2020-11-14] MEDS: BUDESONIDE (INHALATION) 0.5 MG/2 ML NEB NEB SCH ×2 (06:12→18:45)
[2020-11-14] MEDS: InsuLIN REG 1unit/0.01ml Soln (100units/ml) SC SCH ×4 (06:18→22:00)
[2020-11-14] MEDS: ACCU-CHEK COMFORT CURVE STRIP VI SCH ×4 (06:18→22:14)
[2020-11-14] MEDS: DOXYCYCLINE 100MG/250ML 250 ML IV SCH ×2 (08:00→19:48)
[2020-11-14 09:00] VITALS: BP 117/52
[2020-11-14] MEDS: PANTOPRAZOLE 40 MG/10 ML VIAL INJ IV SCH (10:00)
[2020-11-14] MEDS: AMIODARONE HCL 200 MG TAB PO SCH ×2 (10:06→22:12)
[2020-11-14] MEDS: METOPROLOL TARTRATE 25 MG TAB PO SCH ×2 (10:07→22:13)
[2020-11-14] MEDS: APIXABAN 5 MG TAB PO SCH ×2 (10:07→22:12)
[2020-11-14] MEDS: GABAPENTIN 100 MG CAP PO SCH ×2 (10:08→22:13)
[2020-11-14] MEDS: amLODIPine BESYLATE 5 MG TAB PO SCH (10:08)
[2020-11-14 13:00] VITALS: BP 109/58
[2020-11-14 17:00] VITALS: BP 123/75
[2020-11-14] MEDS: HYDROcodone-ACET 10/325MG TAB PO PRN ×2 (17:18→22:34)
[2020-11-14 22:00] VITALS: BP 113/61
[2020-11-14] MEDS ORDERED: levoFLOXacin 500MG 100 ML IV SCH (22:00)
[2020-11-14] MEDS: ATORVASTATIN 20 MG TAB PO SCH (22:12)
[2020-11-14] MEDS: cefTRIAXone 1GM/50ML D5W 50 ML IV SCH (22:14)
[2020-11-15] MEDS: ALBUTEROL SULF 2.5 MG/0.5ML(0.5%) NEB SOLN NEB SCH ×7 (02:00→22:31)
[2020-11-15 05:00] VITALS: BP 103/64
[2020-11-15 05:30] LABS: Basophils # (auto) 0 10 ^3/uL (0-0.2); Basophils % (auto) 0.2 % (0.0-2.0); Eosinophils # (auto) 0.1 10 ^3/uL (0-0.8); Hemoglobin 10.4 g/dL (12.2-16.2); Lymphocytes # (auto) 0.9 10 ^3/uL (0.4-5.4); Lymphocytes % (auto) 14.3 % (10.0-50.0); Neutrophils # (auto) 4.5 10 ^3/uL (1.6-8.6); White Blood Cell 6.6 10^3/uL (4.4-10.8)
[2020-11-15 05:34] LABS: Eosinophils % (auto) 2.1 % (0.0-7.0); Hematocrit 31.5 % (36.0-46.0); Mean Corpuscular Hemoglobin 26.3 pg (28.0-32.0); Mean Corpuscular Volume 79.7 fL (80.0-100.0); Monocytes % (auto) 14.9 % (0.0-12.0); Neutrophils % (auto) 68.5 % (37.0-80.0); Nucleated Red Blood Cells % 0.1 %; Red Blood Cells 3.95 10^6/uL (4.0-5.20); Red Cell Distribution Width 15.2 % (11.8-14.3)
[2020-11-15 06:18] LABS: Potassium 3.6 mmol/L (3.5-5.1)
[2020-11-15 06:24] LABS: BUN/Creatinine Ratio 18.4; Calcium 8.7 mg/dL (8.5-10.1); Magnesium 2.7 mg/dL (1.6-2.6)
[2020-11-15 06:26] LABS: Bilirubin, Total 0.8 mg/dL (0.2-1.0); Phosphorus 3.6 mg/dL (2.5-4.90); Total Protein 6.5 g/dL (6.4-8.2)
[2020-11-15] MEDS: InsuLIN REG 1unit/0.01ml Soln (100units/ml) SC SCH ×4 (06:37→22:11)
[2020-11-15] MEDS: ACCU-CHEK COMFORT CURVE STRIP VI SCH ×4 (06:37→22:19)
[2020-11-15 09:00] VITALS: BP 111/47
[2020-11-15] MEDS: AMIODARONE HCL 200 MG TAB PO SCH ×3 (10:00→22:00)
[2020-11-15] MEDS: DOXYCYCLINE 100MG/250ML 250 ML IV SCH ×2 (10:09→21:36)
[2020-11-15] MEDS: PANTOPRAZOLE 40 MG/10 ML VIAL INJ IV SCH (10:09)
[2020-11-15] MEDS: APIXABAN 5 MG TAB PO SCH ×2 (10:10→22:12)
[2020-11-15] MEDS: METOPROLOL TARTRATE 25 MG TAB PO SCH ×2 (10:11→22:17)
[2020-11-15] MEDS: amLODIPine BESYLATE 5 MG TAB PO SCH (10:11)
[2020-11-15] MEDS: GABAPENTIN 100 MG CAP PO SCH ×2 (10:11→22:14)
[2020-11-15] MEDS: BUDESONIDE (INHALATION) 0.5 MG/2 ML NEB NEB SCH ×2 (10:39→18:12)
[2020-11-15] MEDS: HYDROcodone-ACET 10/325MG TAB PO PRN (11:39)
[2020-11-15 13:00] VITALS: BP 120/58
[2020-11-15] MEDS ORDERED: COLCHICINE 0.6 MG CAP PO ONE (13:30)
[2020-11-15] MEDS: predniSONE 20 MG TAB PO SCH (14:37)
[2020-11-15 17:00] VITALS: BP 122/58
[2020-11-15] MEDS: FUROSEMIDE 100 MG/10ML VIAL IV SCH (18:07)
[2020-11-15] MEDS: cefTRIAXone 1GM/50ML D5W 50 ML IV SCH (20:38)
[2020-11-15 22:00] VITALS: BP 125/76
[2020-11-15] MEDS: ATORVASTATIN 20 MG TAB PO SCH (22:13)
[2020-11-16 05:00] VITALS: BP 128/72
[2020-11-16] MEDS: InsuLIN REG 1unit/0.01ml Soln (100units/ml) SC SCH ×4 (06:23→22:01)
[2020-11-16] MEDS: ACCU-CHEK COMFORT CURVE STRIP VI SCH ×4 (06:27→21:45)
[2020-11-16] MEDS: FUROSEMIDE 100 MG/10ML VIAL IV SCH ×2 (06:27→18:45)
[2020-11-16] MEDS: BUDESONIDE (INHALATION) 0.5 MG/2 ML NEB NEB SCH ×2 (07:55→22:22)
[2020-11-16] MEDS: ALBUTEROL SULF 2.5 MG/0.5ML(0.5%) NEB SOLN NEB SCH ×6 (07:55→22:22)
[2020-11-16 09:00] VITALS: BP 113/53
[2020-11-16] MEDS: AMIODARONE HCL 200 MG TAB PO SCH (10:00)
[2020-11-16] MEDS: COLCHICINE 0.6 MG CAP PO SCH (10:30)
[2020-11-16] MEDS: METOPROLOL TARTRATE 25 MG TAB PO SCH ×2 (10:30→21:45)
[2020-11-16] MEDS: PANTOPRAZOLE 40 MG/10 ML VIAL INJ IV SCH (10:30)
[2020-11-16] MEDS: DOXYCYCLINE 100MG/250ML 250 ML IV SCH ×2 (10:30→22:45)
[2020-11-16] MEDS: predniSONE 20 MG TAB PO SCH (10:30)
[2020-11-16] MEDS: amLODIPine BESYLATE 5 MG TAB PO SCH (10:30)
[2020-11-16] MEDS: GABAPENTIN 100 MG CAP PO SCH ×2 (10:30→21:44)
[2020-11-16] MEDS: APIXABAN 5 MG TAB PO SCH ×2 (10:30→21:43)
[2020-11-16 12:49] VITALS: BP 134/74
[2020-11-16] MEDS: OXYCODONE W/ ACETAMINOPHEN 5/325MG TABLET PO PRN ×2 (15:38→22:03)
[2020-11-16 17:23] VITALS: BP 135/77
[2020-11-16] MEDS: KETOROLAC TROMETH 30 MG/ML 1ML VIAL IV SCH (18:45)
[2020-11-16] MEDS: cefTRIAXone 1GM/50ML D5W 50 ML IV SCH (21:43)
[2020-11-16] MEDS: ATORVASTATIN 20 MG TAB PO SCH (21:45)
[2020-11-16 22:00] VITALS: BP 118/60
[2020-11-17] MEDS: KETOROLAC TROMETH 30 MG/ML 1ML VIAL IV SCH ×3 (00:39→11:05)
[2020-11-17] MEDS: ALBUTEROL SULF 2.5 MG/0.5ML(0.5%) NEB SOLN NEB SCH ×7 (02:00→23:01)
[2020-11-17 05:00] VITALS: BP 109/65
[2020-11-17] MEDS: FUROSEMIDE 100 MG/10ML VIAL IV SCH (06:18)
[2020-11-17] MEDS: ACCU-CHEK COMFORT CURVE STRIP VI SCH ×4 (06:18→22:06)
[2020-11-17] MEDS: InsuLIN REG 1unit/0.01ml Soln (100units/ml) SC SCH ×4 (06:19→22:12)
[2020-11-17] MEDS: BUDESONIDE (INHALATION) 0.5 MG/2 ML NEB NEB SCH ×2 (06:47→19:06)
[2020-11-17 09:00] VITALS: BP 120/58
[2020-11-17] MEDS: PANTOPRAZOLE 40 MG/10 ML VIAL INJ IV SCH (09:40)
[2020-11-17] MEDS: DOXYCYCLINE 100MG/250ML 250 ML IV SCH ×2 (09:40→22:13)
[2020-11-17] MEDS: COLCHICINE 0.6 MG CAP PO SCH (09:40)
[2020-11-17] MEDS: predniSONE 20 MG TAB PO SCH (09:40)
[2020-11-17] MEDS: APIXABAN 5 MG TAB PO SCH ×2 (09:40→22:14)
[2020-11-17] MEDS: amLODIPine BESYLATE 5 MG TAB PO SCH (09:41)
[2020-11-17] MEDS: METOPROLOL TARTRATE 25 MG TAB PO SCH ×2 (09:41→22:14)
[2020-11-17] MEDS: GABAPENTIN 100 MG CAP PO SCH ×2 (09:41→22:14)
[2020-11-17 12:34] LABS: Basophils # (auto) 0 10 ^3/uL (0-0.2); Eosinophils # (auto) 0 10 ^3/uL (0-0.8); Eosinophils % (auto) 0.3 % (0.0-7.0); Lymphocytes # (auto) 0.5 10 ^3/uL (0.4-5.4); Lymphocytes % (auto) 5.6 % (10.0-50.0)
[2020-11-17 12:36] LABS: Basophils % (auto) 0.4 % (0.0-2.0); Hemoglobin 11.3 g/dL (12.2-16.2); Mean Corpuscular Hemoglobin 25.7 pg (28.0-32.0); Mean Corpuscular Hgb Conc. 32.2 g/dL (32.0-36.0); Mean Corpuscular Volume 79.7 fL (80.0-100.0); Monocytes # (auto) 0.8 10 ^3/uL (0-1.3); Neutrophils # (auto) 7.8 10 ^3/uL (1.6-8.6); Neutrophils % (auto) 84.7 % (37.0-80.0); Nucleated Red Blood Cells % 0.1 %; Red Blood Cells 4.39 10^6/uL (4.0-5.20); Red Cell Distribution Width 15.2 % (11.8-14.3); White Blood Cell 9.1 10^3/uL (4.4-10.8)
[2020-11-17 12:52] LABS: BUN/Creatinine Ratio 20.8; Calcium 9.1 mg/dL (8.5-10.1); Potassium 3.9 mmol/L (3.5-5.1)
[2020-11-17 13:00] VITALS: BP 124/65
[2020-11-17] MEDS ORDERED: MORPHINE SULFATE INJECTION 2 MG/ML SYRG IV PRN (15:00)
[2020-11-17] MEDS: OXYCODONE W/ ACETAMINOPHEN 5/325MG TABLET PO PRN (15:38)
[2020-11-17 17:00] VITALS: BP 104/67
[2020-11-17 17:15] VITALS: BP 124/65
[2020-11-17] MEDS: cefTRIAXone 1GM/50ML D5W 50 ML IV SCH (20:56)
[2020-11-17 22:00] VITALS: BP 111/55
[2020-11-17] MEDS: ATORVASTATIN 20 MG TAB PO SCH (22:13)
[2020-11-18 05:00] VITALS: BP 92/54
[2020-11-18] MEDS: ACCU-CHEK COMFORT CURVE STRIP VI SCH ×4 (06:08→21:53)
[2020-11-18] MEDS: InsuLIN REG 1unit/0.01ml Soln (100units/ml) SC SCH ×4 (06:10→21:53)
[2020-11-18] MEDS: ALBUTEROL SULF 2.5 MG/0.5ML(0.5%) NEB SOLN NEB SCH ×6 (06:57→22:00)
[2020-11-18] MEDS: BUDESONIDE (INHALATION) 0.5 MG/2 ML NEB NEB SCH ×2 (06:58→18:01)
[2020-11-18 09:00] VITALS: BP 109/56
[2020-11-18] MEDS: DOXYCYCLINE 100MG/250ML 250 ML IV SCH ×2 (09:34→21:52)
[2020-11-18] MEDS: predniSONE 20 MG TAB PO SCH (09:35)
[2020-11-18] MEDS: PANTOPRAZOLE 40 MG/10 ML VIAL INJ IV SCH (09:35)
[2020-11-18] MEDS: COLCHICINE 0.6 MG CAP PO SCH (09:35)
[2020-11-18] MEDS: FUROSEMIDE 100 MG/10ML VIAL IV SCH (09:35)
[2020-11-18] MEDS: APIXABAN 5 MG TAB PO SCH ×2 (09:36→21:52)
[2020-11-18] MEDS: METOPROLOL TARTRATE 25 MG TAB PO SCH ×2 (09:36→21:52)
[2020-11-18] MEDS: GABAPENTIN 100 MG CAP PO SCH ×2 (09:36→21:53)
[2020-11-18] MEDS: amLODIPine BESYLATE 5 MG TAB PO SCH (09:37)
[2020-11-18] MEDS: OXYCODONE W/ ACETAMINOPHEN 5/325MG TABLET PO PRN (12:26)
[2020-11-18 13:00] VITALS: BP 127/62
[2020-11-18 16:48] LABS: BUN/Creatinine Ratio 29.6; Calcium 8.8 mg/dL (8.5-10.1); Potassium 4.8 mmol/L (3.5-5.1)
[2020-11-18 17:00] VITALS: BP 141/69
[2020-11-18] MEDS: cefTRIAXone 1GM/50ML D5W 50 ML IV SCH (20:29)
[2020-11-18] MEDS: ATORVASTATIN 20 MG TAB PO SCH (21:53)
[2020-11-18 22:00] VITALS: BP 104/49
[2020-11-19] MEDS: OXYCODONE W/ ACETAMINOPHEN 5/325MG TABLET PO PRN ×3 (00:23→21:52)
[2020-11-19] MEDS: ALBUTEROL SULF 2.5 MG/0.5ML(0.5%) NEB SOLN NEB SCH ×6 (02:08→22:57)
[2020-11-19 05:00] VITALS: BP 118/66
[2020-11-19] MEDS: ACCU-CHEK COMFORT CURVE STRIP VI SCH ×4 (06:18→21:26)
[2020-11-19] MEDS: InsuLIN REG 1unit/0.01ml Soln (100units/ml) SC SCH ×4 (06:18→21:47)
[2020-11-19 09:12] VITALS: BP 113/56
[2020-11-19] MEDS: DOXYCYCLINE 100MG/250ML 250 ML IV SCH ×2 (10:35→21:51)
[2020-11-19] MEDS: PANTOPRAZOLE 40 MG/10 ML VIAL INJ IV SCH (10:35)
[2020-11-19] MEDS: FUROSEMIDE 100 MG/10ML VIAL IV SCH (10:36)
[2020-11-19] MEDS: METOPROLOL TARTRATE 25 MG TAB PO SCH ×2 (10:36→21:50)
[2020-11-19] MEDS: APIXABAN 5 MG TAB PO SCH ×2 (10:36→21:48)
[2020-11-19] MEDS: predniSONE 20 MG TAB PO SCH (10:36)
[2020-11-19] MEDS: COLCHICINE 0.6 MG CAP PO SCH (10:37)
[2020-11-19] MEDS: amLODIPine BESYLATE 5 MG TAB PO SCH (10:37)
[2020-11-19] MEDS: GABAPENTIN 100 MG CAP PO SCH ×2 (10:37→21:47)
[2020-11-19] MEDS: BUDESONIDE (INHALATION) 0.5 MG/2 ML NEB NEB SCH ×2 (10:57→18:27)
[2020-11-19 13:00] VITALS: BP 105/63
[2020-11-19 16:00] VITALS: BP 110/76
[2020-11-19] MEDS: cefTRIAXone 1GM/50ML D5W 50 ML IV SCH (20:35)
[2020-11-19] MEDS: ATORVASTATIN 20 MG TAB PO SCH (21:47)
[2020-11-19 22:00] VITALS: BP 113/65
[2020-11-20 05:00] VITALS: BP 112/63
[2020-11-20] MEDS: ACCU-CHEK COMFORT CURVE STRIP VI SCH ×3 (06:15→18:13)
[2020-11-20] MEDS: InsuLIN REG 1unit/0.01ml Soln (100units/ml) SC SCH ×3 (06:17→18:13)
[2020-11-20] MEDS: ALBUTEROL SULF 2.5 MG/0.5ML(0.5%) NEB SOLN NEB SCH ×4 (07:00→18:30)
[2020-11-20 07:26] LABS: Blood Urea Nitrogen 62 mg/dL (7-18); Calcium 8.9 mg/dL (8.5-10.1); Chloride 97 mmol/L (98-107); Glucose 123 mg/dL (74-106); Potassium 4.4 mmol/L (3.5-5.1); Sodium 131 mmol/L (136-145)
[2020-11-20 07:27] LABS: Basophils # (auto) 0 10 ^3/uL (0-0.2); Basophils % (auto) 0.2 % (0.0-2.0); Eosinophils # (auto) 0.1 10 ^3/uL (0-0.8); Eosinophils % (auto) 0.5 % (0.0-7.0); Hematocrit 36.5 % (36.0-46.0); Hemoglobin 11.1 g/dL (12.2-16.2); Lymphocytes # (auto) 1.3 10 ^3/uL (0.4-5.4); Lymphocytes % (auto) 12.9 % (10.0-50.0); Mean Corpuscular Hemoglobin 25.2 pg (28.0-32.0); Mean Corpuscular Hgb Conc. 30.5 g/dL (32.0-36.0); Mean Corpuscular Volume 82.7 fL (80.0-100.0); Monocytes # (auto) 1.1 10 ^3/uL (0-1.3); Monocytes % (auto) 10.7 % (0.0-12.0); Neutrophils # (auto) 7.7 10 ^3/uL (1.6-8.6); Neutrophils % (auto) 75.7 % (37.0-80.0); Red Blood Cells 4.41 10^6/uL (4.0-5.20); Red Cell Distribution Width 15.3 % (11.8-14.3); White Blood Cell 10.1 10^3/uL (4.4-10.8)
[2020-11-20 07:29] LABS: Alanine Aminotransferase 15 U/L (13-56); Alkaline Phosphatase 67 U/L (45-117); Anion Gap 11 (5-15); Aspartate Aminotransferase 9 U/L (15-37); BUN/Creatinine Ratio 36.5; Bilirubin, Total 0.3 mg/dL (0.2-1.0); Carbon Dioxide 23 mmol/L (21-32); GFR African American 38 mL/min; GFR Non-African American 31 mL/min; Total Protein 6.3 g/dL (6.4-8.2)
[2020-11-20 08:00] VITALS: BP 114/62
[2020-11-20 09:00] VITALS: BP 114/62
[2020-11-20] MEDS: COLCHICINE 0.6 MG CAP PO SCH (10:00)
[2020-11-20] MEDS ORDERED: FUROSEMIDE 100 MG/10ML VIAL IV SCH (10:00)
[2020-11-20] MEDS: BUDESONIDE (INHALATION) 0.5 MG/2 ML NEB NEB SCH ×2 (11:00→18:30)
[2020-11-20] MEDS: PANTOPRAZOLE 40 MG/10 ML VIAL INJ IV SCH (11:04)
[2020-11-20] MEDS: DOXYCYCLINE 100MG/250ML 250 ML IV SCH (11:06)
[2020-11-20] MEDS: predniSONE 20 MG TAB PO SCH (11:06)
[2020-11-20] MEDS: METOPROLOL TARTRATE 25 MG TAB PO SCH (11:07)
[2020-11-20] MEDS: APIXABAN 5 MG TAB PO SCH (11:07)
[2020-11-20] MEDS: GABAPENTIN 100 MG CAP PO SCH (11:08)
[2020-11-20] MEDS: amLODIPine BESYLATE 5 MG TAB PO SCH (11:08)
[2020-11-20 13:00] VITALS: BP 124/67
[2020-11-20 15:09] VITALS: BP 128/66
[2020-11-20 17:00] VITALS: BP 119/66
[2020-11-21] MEDS ORDERED: COLCHICINE 0.6 MG CAP PO SCH (10:00)
== END 2020-11-20 21:07 | disposition home or self-care (01) | DRG 291 ==
LOC: EDBD 11:14 → ER 11:14 → TELE 14:47 → TELE-CENTR 11-11 20:05 → CENTRAL 11-19 12:28 → TELE-CENTR 11-19 20:49
PROVIDERS: ADMIT Nurse Practitioner; ATTEND Nurse Practitioner
PROC: 5A09357 Assistance with Respiratory Ventilation, Less than 24 Consecutive Hours, Continuous Positive Airway Pressure (ICD-10-PCS; 2020-11-10)
PROC: 5A09357 Assistance with Respiratory Ventilation, Less than 24 Consecutive Hours, Continuous Positive Airway Pressure (ICD-10-PCS; 2020-11-11)
PROC: 05HB33Z Insertion of Infusion Device into Right Basilic Vein, Percutaneous Approach (ICD-10-PCS; 2020-11-14)
PROC: B54MZZA Ultrasonography of Right Upper Extremity Veins, Guidance (ICD-10-PCS; 2020-11-14)
PROC: 4B02XTZ Measurement of Cardiac Defibrillator, External Approach (ICD-10-PCS; principal; 2020-11-20)
DX: I13.0 Hypertensive heart and chronic kidney disease with heart failure and stage 1 through stage 4 chronic kidney disease, or unspecified chronic kidney disease (principal); J96.01 Acute respiratory failure with hypoxia; I50.23 Acute on chronic systolic (congestive) heart failure; I47.2 Ventricular tachycardia; J98.11 Atelectasis; I42.9 Cardiomyopathy, unspecified; J44.9 Chronic obstructive pulmonary disease, unspecified; M10.9 Gout, unspecified; M79.671 Pain in right foot; M79.672 Pain in left foot; Z20.822 Contact with and (suspected) exposure to COVID-19; M17.12 Unilateral primary osteoarthritis, left knee; I48.91 Unspecified atrial fibrillation; E11.22 Type 2 diabetes mellitus with diabetic chronic kidney disease; N18.9 Chronic kidney disease, unspecified; Z79.899 Other long term (current) drug therapy; Z80.0 Family history of malignant neoplasm of digestive organs; Z79.01 Long term (current) use of anticoagulants; Z79.84 Long term (current) use of oral hypoglycemic drugs; Z80.1 Family history of malignant neoplasm of trachea, bronchus and lung; Z80.3 Family history of malignant neoplasm of breast; Z82.49 Family history of ischemic heart disease and other diseases of the circulatory system; Z83.3 Family history of diabetes mellitus; Z85.038 Personal history of other malignant neoplasm of large intestine; Z85.118 Personal history of other malignant neoplasm of bronchus and lung; Z90.710 Acquired absence of both cervix and uterus; Z90.49 Acquired absence of other specified parts of digestive tract; Z91.041 Radiographic dye allergy status
CPT/HCPCS: 36415; 36600; 71045; 73560; 80048; 80053; 80061; 81001; 82805; 82962; 83036; 83605; 83735; 83880; 84100; 84484; 84550; 85025; 85379; 85610; 85730; 86431; 87040; 87426; 93005; 93306; 93970; 94640; 94660; 96372; 96374; 96375; C9113; G0378; J0696; J1815; J1885; J2405; J3490

== ENCOUNTER 2021-02-01 17:25 | Inpatient (IN) | payer MEDICARE, MEDICAID ==
[~2021-02-01] VITALS: Ht 165.1 cm; Wt 80.6 kg
[~2021-02-01 17:25] MED LIST changes: -AMIO200T33 PO; -CARV25TA PO; -DILT60TA PO; -FUR20T GT; +FUR20T PO; -LEVO500T31 PO; -LOSA-39 PO; -METR500T PO; -ONDA-144 PO
[2021-02-01 19:42] LABS: Basophils # (auto) 0 10 ^3/uL (0-0.2); Eosinophils # (auto) 0 10 ^3/uL (0-0.8); Hemoglobin 11.2 g/dL (12.2-16.2); Lymphocytes # (auto) 0.5 10 ^3/uL (0.4-5.4); Mean Corpuscular Hemoglobin 24.2 pg (28.0-32.0)
[2021-02-01 19:43] LABS: Basophils % (auto) 0.2 % (0.0-2.0); Hematocrit 35.7 % (36.0-46.0); Lymphocytes % (auto) 3.9 % (10.0-50.0); Mean Corpuscular Hgb Conc. 31.5 g/dL (32.0-36.0); Monocytes # (auto) 1.3 10 ^3/uL (0-1.3); Monocytes % (auto) 9.8 % (0.0-12.0); Neutrophils # (auto) 11.4 10 ^3/uL (1.6-8.6); Neutrophils % (auto) 86.1 % (37.0-80.0); Red Blood Cells 4.63 10^6/uL (4.0-5.20); Red Cell Distribution Width 17.4 % (11.8-14.3); White Blood Cell 13.2 10^3/uL (4.4-10.8)
[2021-02-01 19:47] LABS: Albumin 2.9 g/dL (3.4-5.0); Magnesium 1.8 mg/dL (1.6-2.6); Potassium 3.4 mmol/L (3.5-5.1)
[2021-02-01 19:49] LABS: BUN/Creatinine Ratio 11.3
[2021-02-01 19:52] LABS: Bilirubin, Total 4.4 mg/dL (0.2-1.0); Total Protein 6.5 g/dL (6.4-8.2)
[2021-02-01] MEDS ORDERED: FUROSEMIDE 40 MG/4 ML VIAL IV ONE (21:45)
[2021-02-01] MEDS ORDERED: ONDANSETRON HCL 4 MG/2 ML VIAL IV PRN (22:00)
[2021-02-01] MEDS ORDERED: DEXTROSE (50%) 50ML SYRG IV PRN (22:00)
[2021-02-01] MEDS: CARVEDILOL 12.5 MG TAB PO SCH (22:00)
[2021-02-01] MEDS ORDERED: ACETAMINOPHEN 325 MG TAB PO PRN (22:00)
[2021-02-01] MEDS ORDERED: DOCUSATE SOD 100 MG CAP PO PRN (22:00)
[2021-02-01] MEDS ORDERED: cefTRIAXone 1GM/50ML D5W 50 ML IV ONE (22:00)
[2021-02-01] MEDS: SODIUM CHLOR 0.9% PF (SALINE LOCK) 10ML VIAL/SYR IV SCH (22:37)
[2021-02-01] MEDS ORDERED: MORPHINE SULFATE INJECTION 2 MG/ML SYRG IV PRN (22:45)
[2021-02-01] MEDS ORDERED: NITROGLYCERIN 0.4 MG SL TAB SL PRN (22:45)
[2021-02-01] MEDS: ASCORBIC ACID 500 MG TAB PO SCH (23:07)
[2021-02-01] MEDS: ATORVASTATIN 20 MG TAB PO SCH (23:07)
[2021-02-01] MEDS: APIXABAN 5 MG TAB PO SCH (23:07)
[2021-02-01] MEDS: ACCU-CHEK COMFORT CURVE STRIP VI SCH (23:12)
[2021-02-01] MEDS: FAMOTIDINE (10MG/ML) 2ML VL IV SCH (23:15)
[2021-02-01] MEDS: InsuLIN REG 1unit/0.01ml Soln (100units/ml) SC SCH (23:20)
[2021-02-01 23:44] VITALS: BP 109/74
[2021-02-01 23:47] LABS: Urine Bacteria FEW /hpf (None Seen); Urine Blood Negative /uL (Negative); Urine Hyaline Cast FEW /lpf (0 - 2); Urine WBC 1 /hpf (0 - 5)
[2021-02-02] VITALS (7 sets, daily range): BP systolic 108–139; BP diastolic 45–65
[2021-02-02] MEDS ORDERED: PNEUMOCOCCAL VACC POLYS 25 MCG/0.5 ML VIAL IM ONE (02:00)
[2021-02-02] MEDS: ACCU-CHEK COMFORT CURVE STRIP VI SCH ×4 (06:40→20:58)
[2021-02-02] MEDS: SODIUM CHLOR 0.9% PF (SALINE LOCK) 10ML VIAL/SYR IV SCH ×4 (06:40→21:05)
[2021-02-02] MEDS: InsuLIN REG 1unit/0.01ml Soln (100units/ml) SC SCH ×4 (06:40→21:03)
[2021-02-02] MEDS: FAMOTIDINE (10MG/ML) 2ML VL IV SCH (09:17)
[2021-02-02] MEDS: MULTIPLE VITAMIN TAB PO SCH (09:18)
[2021-02-02] MEDS: ASCORBIC ACID 500 MG TAB PO SCH ×2 (09:18→21:05)
[2021-02-02] MEDS: cefTRIAXone 1GM/50ML D5W 50 ML IV SCH (09:18)
[2021-02-02] MEDS: FUROSEMIDE 40 MG/4 ML VIAL IV SCH (09:18)
[2021-02-02] MEDS: APIXABAN 5 MG TAB PO SCH ×2 (09:19→21:06)
[2021-02-02] MEDS: CARVEDILOL 12.5 MG TAB PO SCH ×2 (09:19→21:14)
[2021-02-02] MEDS: ZINC SULFATE 220mg CAP or TAB PO SCH (09:19)
[2021-02-02] MEDS: HYDROcodone-ACET 5/325MG TAB PO PRN ×2 (09:53→21:05)
[2021-02-02 10:02] LABS: Eosinophils # (auto) 0 10 ^3/uL (0-0.8); Eosinophils % (auto) 0.2 % (0.0-7.0); Hemoglobin 10.9 g/dL (12.2-16.2)
[2021-02-02 10:05] LABS: Basophils # (auto) 0 10 ^3/uL (0-0.2); Basophils % (auto) 0.3 % (0.0-2.0); Hematocrit 34.3 % (36.0-46.0); Lymphocytes # (auto) 0.9 10 ^3/uL (0.4-5.4); Lymphocytes % (auto) 7.7 % (10.0-50.0); Mean Corpuscular Hemoglobin 24.5 pg (28.0-32.0); Mean Corpuscular Hgb Conc. 31.7 g/dL (32.0-36.0); Mean Corpuscular Volume 77.3 fL (80.0-100.0); Monocytes # (auto) 1.4 10 ^3/uL (0-1.3); Monocytes % (auto) 12.4 % (0.0-12.0); Neutrophils # (auto) 9.1 10 ^3/uL (1.6-8.6); Neutrophils % (auto) 79.4 % (37.0-80.0); Red Blood Cells 4.43 10^6/uL (4.0-5.20); Red Cell Distribution Width 17.1 % (11.8-14.3); White Blood Cell 11.4 10^3/uL (4.4-10.8)
[2021-02-02 10:18] LABS: Albumin 2.7 g/dL (3.4-5.0); Calcium 7.5 mg/dL (8.5-10.1)
[2021-02-02 10:23] LABS: BUN/Creatinine Ratio 11.3; Bilirubin, Total 2.9 mg/dL (0.2-1.0)
[2021-02-02] MEDS: ATORVASTATIN 20 MG TAB PO SCH (21:05)
[2021-02-02] MEDS: POTASSIUM CHL 20 Meq TABLET PO SCH (21:05)
[2021-02-03 05:29] VITALS: BP 122/53
[2021-02-03] MEDS: ACCU-CHEK COMFORT CURVE STRIP VI SCH ×4 (06:17→21:50)
[2021-02-03] MEDS: SODIUM CHLOR 0.9% PF (SALINE LOCK) 10ML VIAL/SYR IV SCH ×3 (06:17→21:49)
[2021-02-03] MEDS: InsuLIN REG 1unit/0.01ml Soln (100units/ml) SC SCH ×4 (06:18→21:54)
[2021-02-03 07:30] VITALS: BP 139/45
[2021-02-03] MEDS: cefTRIAXone 1GM/50ML D5W 50 ML IV SCH (09:14)
[2021-02-03] MEDS: FUROSEMIDE 40 MG/4 ML VIAL IV SCH (09:14)
[2021-02-03] MEDS: APIXABAN 5 MG TAB PO SCH ×2 (09:15→21:36)
[2021-02-03] MEDS: CARVEDILOL 12.5 MG TAB PO SCH ×2 (09:15→21:47)
[2021-02-03] MEDS: ASCORBIC ACID 500 MG TAB PO SCH ×2 (09:15→21:36)
[2021-02-03] MEDS: MULTIPLE VITAMIN TAB PO SCH (09:15)
[2021-02-03] MEDS: POTASSIUM CHL 20 Meq TABLET PO SCH (09:15)
[2021-02-03] MEDS: ZINC SULFATE 220mg CAP or TAB PO SCH (09:15)
[2021-02-03] MEDS: FAMOTIDINE (10MG/ML) 2ML VL IV SCH (10:44)
[2021-02-03] MEDS: HYDROcodone-ACET 5/325MG TAB PO PRN ×2 (10:45→21:35)
[2021-02-03 11:03] LABS: Basophils # (auto) 0 10 ^3/uL (0-0.2); Eosinophils # (auto) 0.1 10 ^3/uL (0-0.8); Eosinophils % (auto) 1.4 % (0.0-7.0); Hemoglobin 10.1 g/dL (12.2-16.2); Monocytes # (auto) 0.9 10 ^3/uL (0-1.3); Neutrophils % (auto) 76.1 % (37.0-80.0)
[2021-02-03 11:06] LABS: Basophils % (auto) 0.4 % (0.0-2.0); Hematocrit 31.9 % (36.0-46.0); Lymphocytes # (auto) 0.7 10 ^3/uL (0.4-5.4); Lymphocytes % (auto) 9.6 % (10.0-50.0); Mean Corpuscular Hemoglobin 24.6 pg (28.0-32.0); Mean Corpuscular Hgb Conc. 31.7 g/dL (32.0-36.0); Mean Corpuscular Volume 77.4 fL (80.0-100.0); Monocytes % (auto) 12.5 % (0.0-12.0); Neutrophils # (auto) 5.3 10 ^3/uL (1.6-8.6); Red Blood Cells 4.13 10^6/uL (4.0-5.20); Red Cell Distribution Width 17.3 % (11.8-14.3)
[2021-02-03 11:12] LABS: Albumin 2.3 g/dL (3.4-5.0); Calcium 7.6 mg/dL (8.5-10.1); Potassium 3.4 mmol/L (3.5-5.1)
[2021-02-03 11:17] LABS: BUN/Creatinine Ratio 13.4; Bilirubin, Total 1.2 mg/dL (0.2-1.0); Total Protein 5.6 g/dL (6.4-8.2)
[2021-02-03] MEDS ORDERED: COLCHICINE 0.6 MG CAP PO ONE (16:00)
[2021-02-03 19:17] VITALS: BP 177/57
[2021-02-03 20:00] VITALS: BP 114/51
[2021-02-03] MEDS: ATORVASTATIN 20 MG TAB PO SCH (21:36)
[2021-02-03] MEDS: methylPREDNISolone SOD SUCC 40 MG/ML VL IV SCH (21:50)
[2021-02-03] MEDS: ALBUTEROL SULF 2.5 MG/0.5ML(0.5%) NEB SOLN NEB SCH (21:56)
[2021-02-03] MEDS: IPRATROPIUM BROM 0.5 MG/2.5ML INH SOL NEB SCH (21:56)
[2021-02-03 22:00] VITALS: BP 114/51
[2021-02-03] MEDS ORDERED: POTASSIUM CHL 20 Meq TABLET PO SCH (22:00)
[2021-02-04] MEDS: IPRATROPIUM BROM 0.5 MG/2.5ML INH SOL NEB SCH ×6 (02:02→22:30)
[2021-02-04] MEDS: ALBUTEROL SULF 2.5 MG/0.5ML(0.5%) NEB SOLN NEB SCH ×6 (02:02→22:30)
[2021-02-04 05:00] VITALS: BP 111/63
[2021-02-04] MEDS: SODIUM CHLOR 0.9% PF (SALINE LOCK) 10ML VIAL/SYR IV SCH ×3 (05:29→21:50)
[2021-02-04 05:42] LABS: Eosinophils # (auto) 0 10 ^3/uL (0-0.8); Hematocrit 34.5 % (36.0-46.0); Monocytes # (auto) 0.2 10 ^3/uL (0-1.3); Neutrophils # (auto) 5.8 10 ^3/uL (1.6-8.6); White Blood Cell 6.4 10^3/uL (4.4-10.8)
[2021-02-04 05:43] LABS: Basophils # (auto) 0.1 10 ^3/uL (0-0.2); Eosinophils % (auto) 0.1 % (0.0-7.0); Hemoglobin 10.9 g/dL (12.2-16.2); Lymphocytes # (auto) 0.4 10 ^3/uL (0.4-5.4); Lymphocytes % (auto) 5.5 % (10.0-50.0); Mean Corpuscular Hemoglobin 24.4 pg (28.0-32.0); Mean Corpuscular Hgb Conc. 31.5 g/dL (32.0-36.0); Mean Corpuscular Volume 77.5 fL (80.0-100.0); Monocytes % (auto) 2.5 % (0.0-12.0); Neutrophils % (auto) 90.9 % (37.0-80.0); Nucleated Red Blood Cells % 0.1 %; Red Blood Cells 4.45 10^6/uL (4.0-5.20); Red Cell Distribution Width 16.9 % (11.8-14.3)
[2021-02-04 06:07] LABS: Albumin 2.4 g/dL (3.4-5.0); Magnesium 2.7 mg/dL (1.6-2.6)
[2021-02-04 06:10] LABS: BUN/Creatinine Ratio 18.2; Bilirubin, Total 0.8 mg/dL (0.2-1.0); Total Protein 6.4 g/dL (6.4-8.2)
[2021-02-04 06:57] LABS: Potassium 5.6 mmol/L (3.5-5.1)
[2021-02-04] MEDS: InsuLIN REG 1unit/0.01ml Soln (100units/ml) SC SCH ×4 (07:07→22:01)
[2021-02-04] MEDS: ACCU-CHEK COMFORT CURVE STRIP VI SCH ×4 (07:07→21:55)
[2021-02-04 09:00] VITALS: BP 108/62
[2021-02-04] MEDS: FAMOTIDINE (10MG/ML) 2ML VL IV SCH (10:00)
[2021-02-04] MEDS: cefTRIAXone 1GM/50ML D5W 50 ML IV SCH (10:25)
[2021-02-04] MEDS: methylPREDNISolone SOD SUCC 40 MG/ML VL IV SCH ×2 (10:26→21:50)
[2021-02-04] MEDS: ZINC SULFATE 220mg CAP or TAB PO SCH (10:26)
[2021-02-04] MEDS: COLCHICINE 0.6 MG CAP PO SCH (10:26)
[2021-02-04] MEDS: FUROSEMIDE 40 MG/4 ML VIAL IV SCH (10:26)
[2021-02-04] MEDS: APIXABAN 5 MG TAB PO SCH ×2 (10:30→21:50)
[2021-02-04] MEDS: ASCORBIC ACID 500 MG TAB PO SCH ×2 (10:30→21:50)
[2021-02-04] MEDS: MULTIPLE VITAMIN TAB PO SCH (10:30)
[2021-02-04] MEDS: CARVEDILOL 12.5 MG TAB PO SCH ×2 (10:30→21:50)
[2021-02-04] MEDS: HYDROcodone-ACET 5/325MG TAB PO PRN ×2 (10:30→18:48)
[2021-02-04 13:00] VITALS: BP 107/65
[2021-02-04 16:48] VITALS: BP 138/68
[2021-02-04] MEDS: ATORVASTATIN 20 MG TAB PO SCH (21:50)
[2021-02-04 22:00] VITALS: BP 115/75
[2021-02-05] MEDS: ALBUTEROL SULF 2.5 MG/0.5ML(0.5%) NEB SOLN NEB SCH ×6 (02:00→22:24)
[2021-02-05] MEDS: IPRATROPIUM BROM 0.5 MG/2.5ML INH SOL NEB SCH ×6 (02:00→22:24)
[2021-02-05 06:31] LABS: Albumin 2.5 g/dL (3.4-5.0); Calcium 8.6 mg/dL (8.5-10.1); Potassium 4.9 mmol/L (3.5-5.1)
[2021-02-05 06:34] LABS: Basophils # (auto) 0 10 ^3/uL (0-0.2); Eosinophils # (auto) 0 10 ^3/uL (0-0.8); Hemoglobin 10.3 g/dL (12.2-16.2); Neutrophils # (auto) 9.3 10 ^3/uL (1.6-8.6); Red Cell Distribution Width 16.7 % (11.8-14.3)
[2021-02-05 06:37] LABS: Hematocrit 31.9 % (36.0-46.0); Lymphocytes # (auto) 0.4 10 ^3/uL (0.4-5.4); Lymphocytes % (auto) 4.5 % (10.0-50.0); Mean Corpuscular Hemoglobin 24.6 pg (28.0-32.0); Mean Corpuscular Hgb Conc. 32.4 g/dL (32.0-36.0); Monocytes # (auto) 0.3 10 ^3/uL (0-1.3); Monocytes % (auto) 3.2 % (0.0-12.0); Neutrophils % (auto) 92.3 % (37.0-80.0)
[2021-02-05 06:41] LABS: BUN/Creatinine Ratio 23.3; Bilirubin, Total 0.5 mg/dL (0.2-1.0); Total Protein 6.2 g/dL (6.4-8.2)
[2021-02-05] MEDS: ACCU-CHEK COMFORT CURVE STRIP VI SCH ×4 (06:49→22:17)
[2021-02-05] MEDS: SODIUM CHLOR 0.9% PF (SALINE LOCK) 10ML VIAL/SYR IV SCH ×3 (06:50→22:17)
[2021-02-05] MEDS: InsuLIN REG 1unit/0.01ml Soln (100units/ml) SC SCH ×4 (06:51→22:24)
[2021-02-05 09:00] VITALS: BP 95/51
[2021-02-05] MEDS: methylPREDNISolone SOD SUCC 40 MG/ML VL IV SCH ×2 (09:26→22:16)
[2021-02-05] MEDS: COLCHICINE 0.6 MG CAP PO SCH (09:26)
[2021-02-05] MEDS: APIXABAN 5 MG TAB PO SCH ×2 (09:26→22:16)
[2021-02-05] MEDS: FAMOTIDINE (10MG/ML) 2ML VL IV SCH (09:26)
[2021-02-05] MEDS: ZINC SULFATE 220mg CAP or TAB PO SCH (09:26)
[2021-02-05] MEDS: ASCORBIC ACID 500 MG TAB PO SCH ×2 (09:27→22:17)
[2021-02-05] MEDS: MULTIPLE VITAMIN TAB PO SCH (09:27)
[2021-02-05] MEDS: FUROSEMIDE 40 MG/4 ML VIAL IV SCH (10:00)
[2021-02-05] MEDS: CARVEDILOL 12.5 MG TAB PO SCH ×2 (10:00→22:17)
[2021-02-05 13:00] VITALS: BP 116/55
[2021-02-05 17:00] VITALS: BP 114/31
[2021-02-05] MEDS: ATORVASTATIN 20 MG TAB PO SCH (22:17)
[2021-02-05 22:37] VITALS: BP 116/70
[2021-02-06] MEDS: ALBUTEROL SULF 2.5 MG/0.5ML(0.5%) NEB SOLN NEB SCH ×6 (01:25→21:22)
[2021-02-06] MEDS: IPRATROPIUM BROM 0.5 MG/2.5ML INH SOL NEB SCH ×6 (01:25→21:22)
[2021-02-06 05:00] VITALS: BP 115/74
[2021-02-06] MEDS: SODIUM CHLOR 0.9% PF (SALINE LOCK) 10ML VIAL/SYR IV SCH ×3 (06:15→20:49)
[2021-02-06] MEDS: ACCU-CHEK COMFORT CURVE STRIP VI SCH ×4 (06:16→20:50)
[2021-02-06] MEDS: InsuLIN REG 1unit/0.01ml Soln (100units/ml) SC SCH ×4 (06:17→20:52)
[2021-02-06] MEDS: methylPREDNISolone SOD SUCC 40 MG/ML VL IV SCH ×2 (08:27→20:50)
[2021-02-06] MEDS: APIXABAN 5 MG TAB PO SCH ×2 (08:28→20:50)
[2021-02-06] MEDS: FUROSEMIDE 40 MG/4 ML VIAL IV SCH (08:28)
[2021-02-06] MEDS: ASCORBIC ACID 500 MG TAB PO SCH ×2 (08:28→20:50)
[2021-02-06] MEDS: ZINC SULFATE 220mg CAP or TAB PO SCH (08:28)
[2021-02-06] MEDS: FAMOTIDINE (10MG/ML) 2ML VL IV SCH (08:28)
[2021-02-06] MEDS: MULTIPLE VITAMIN TAB PO SCH (08:29)
[2021-02-06] MEDS: CARVEDILOL 12.5 MG TAB PO SCH ×2 (08:29→20:53)
[2021-02-06] MEDS: AMIODARONE HCL 200 MG TAB PO SCH ×2 (08:29→20:52)
[2021-02-06] MEDS: COLCHICINE 0.6 MG CAP PO SCH (08:29)
[2021-02-06] MEDS: HYDROcodone-ACET 5/325MG TAB PO PRN ×2 (08:40→20:54)
[2021-02-06 09:10] VITALS: BP 116/62
[2021-02-06 09:54] VITALS: BP 116/62
[2021-02-06 12:51] VITALS: BP 111/62
[2021-02-06 17:03] VITALS: BP 107/56
[2021-02-06] MEDS: ATORVASTATIN 20 MG TAB PO SCH (20:50)
[2021-02-06 22:00] VITALS: BP 122/62
[2021-02-07] MEDS: IPRATROPIUM BROM 0.5 MG/2.5ML INH SOL NEB SCH ×8 (02:00→22:00)
[2021-02-07] MEDS: ALBUTEROL SULF 2.5 MG/0.5ML(0.5%) NEB SOLN NEB SCH ×8 (02:00→22:00)
[2021-02-07 05:00] VITALS: BP 124/68
[2021-02-07] MEDS: SODIUM CHLOR 0.9% PF (SALINE LOCK) 10ML VIAL/SYR IV SCH ×3 (05:21→22:00)
[2021-02-07] MEDS: InsuLIN REG 1unit/0.01ml Soln (100units/ml) SC SCH ×4 (06:26→22:00)
[2021-02-07] MEDS: ACCU-CHEK COMFORT CURVE STRIP VI SCH ×4 (06:27→22:00)
[2021-02-07 09:00] VITALS: BP 103/54
[2021-02-07] MEDS: CARVEDILOL 12.5 MG TAB PO SCH ×2 (10:00→22:00)
[2021-02-07] MEDS: methylPREDNISolone SOD SUCC 40 MG/ML VL IV SCH ×2 (10:10→22:00)
[2021-02-07] MEDS: FAMOTIDINE (10MG/ML) 2ML VL IV SCH (10:10)
[2021-02-07] MEDS: ZINC SULFATE 220mg CAP or TAB PO SCH (10:11)
[2021-02-07] MEDS: AMIODARONE HCL 200 MG TAB PO SCH ×2 (10:12→22:00)
[2021-02-07] MEDS: COLCHICINE 0.6 MG CAP PO SCH (10:12)
[2021-02-07] MEDS: APIXABAN 5 MG TAB PO SCH ×2 (10:13→22:00)
[2021-02-07] MEDS: ASCORBIC ACID 500 MG TAB PO SCH ×2 (10:16→22:00)
[2021-02-07] MEDS: MULTIPLE VITAMIN TAB PO SCH (10:16)
[2021-02-07] MEDS: HYDROcodone-ACET 5/325MG TAB PO PRN (10:31)
[2021-02-07] MEDS: FUROSEMIDE 40 MG/4 ML VIAL IV SCH (12:19)
[2021-02-07 13:00] VITALS: BP 107/68
[2021-02-07 17:00] VITALS: BP 119/63
[2021-02-07 22:00] VITALS: BP 118/67
[2021-02-07] MEDS: ATORVASTATIN 20 MG TAB PO SCH (22:00)
[2021-02-08] MEDS: IPRATROPIUM BROM 0.5 MG/2.5ML INH SOL NEB SCH ×4 (03:12→14:00)
[2021-02-08] MEDS: ALBUTEROL SULF 2.5 MG/0.5ML(0.5%) NEB SOLN NEB SCH ×4 (03:12→14:00)
[2021-02-08] MEDS: ACCU-CHEK COMFORT CURVE STRIP VI SCH ×3 (06:24→17:22)
[2021-02-08] MEDS: SODIUM CHLOR 0.9% PF (SALINE LOCK) 10ML VIAL/SYR IV SCH ×2 (06:24→14:00)
[2021-02-08] MEDS: InsuLIN REG 1unit/0.01ml Soln (100units/ml) SC SCH ×3 (06:25→17:00)
[2021-02-08 07:34] LABS: Potassium 5.1 mmol/L (3.5-5.1)
[2021-02-08 07:41] LABS: BUN/Creatinine Ratio 39.1; Calcium 8.4 mg/dL (8.5-10.1)
[2021-02-08 09:00] VITALS: BP 113/65
[2021-02-08] MEDS: MULTIPLE VITAMIN TAB PO SCH (09:39)
[2021-02-08] MEDS: COLCHICINE 0.6 MG CAP PO SCH (09:40)
[2021-02-08] MEDS: ASCORBIC ACID 500 MG TAB PO SCH (09:40)
[2021-02-08] MEDS: APIXABAN 5 MG TAB PO SCH (09:40)
[2021-02-08] MEDS: CARVEDILOL 12.5 MG TAB PO SCH (09:40)
[2021-02-08] MEDS: methylPREDNISolone SOD SUCC 40 MG/ML VL IV SCH (09:41)
[2021-02-08] MEDS: FUROSEMIDE 40 MG/4 ML VIAL IV SCH (09:41)
[2021-02-08] MEDS: FAMOTIDINE (10MG/ML) 2ML VL IV SCH (09:41)
[2021-02-08] MEDS: ZINC SULFATE 220mg CAP or TAB PO SCH (09:41)
[2021-02-08] MEDS: AMIODARONE HCL 200 MG TAB PO SCH (09:42)
[2021-02-08 13:00] VITALS: BP 115/72
== END 2021-02-08 18:37 | disposition home health service (06) | DRG 291 ==
LOC: ER 17:25 → TELE-WESTW 22:37 → ER 23:39
PROVIDERS: ADMIT Nurse Practitioner Family; ATTEND Internal Medicine
PROC: 4B02XTZ Measurement of Cardiac Defibrillator, External Approach (ICD-10-PCS; principal; 2021-02-06)
DX: I13.0 Hypertensive heart and chronic kidney disease with heart failure and stage 1 through stage 4 chronic kidney disease, or unspecified chronic kidney disease (principal); I50.23 Acute on chronic systolic (congestive) heart failure; I49.01 Ventricular fibrillation; N17.9 Acute kidney failure, unspecified; J44.1 Chronic obstructive pulmonary disease with (acute) exacerbation; E44.0 Moderate protein-calorie malnutrition; R55 Syncope and collapse; D72.829 Elevated white blood cell count, unspecified; E87.6 Hypokalemia; E88.09 Other disorders of plasma-protein metabolism, not elsewhere classified; E11.65 Type 2 diabetes mellitus with hyperglycemia; N18.9 Chronic kidney disease, unspecified; I48.91 Unspecified atrial fibrillation; E87.5 Hyperkalemia; E11.22 Type 2 diabetes mellitus with diabetic chronic kidney disease; E66.9 Obesity, unspecified; E78.5 Hyperlipidemia, unspecified; H91.90 Unspecified hearing loss, unspecified ear; Z20.822 Contact with and (suspected) exposure to COVID-19; M10.9 Gout, unspecified; Z79.899 Other long term (current) drug therapy; Z80.0 Family history of malignant neoplasm of digestive organs; Z80.1 Family history of malignant neoplasm of trachea, bronchus and lung; Z80.3 Family history of malignant neoplasm of breast; Z82.49 Family history of ischemic heart disease and other diseases of the circulatory system; Z83.3 Family history of diabetes mellitus; Z85.038 Personal history of other malignant neoplasm of large intestine; Z90.710 Acquired absence of both cervix and uterus; Z90.49 Acquired absence of other specified parts of digestive tract; Z79.01 Long term (current) use of anticoagulants; Z91.041 Radiographic dye allergy status; Z95.810 Presence of automatic (implantable) cardiac defibrillator; Z79.84 Long term (current) use of oral hypoglycemic drugs; Z68.28 Body mass index [BMI] 28.0-28.9, adult
CPT/HCPCS: 36415; 70450; 71045; 73562; 76700; 80048; 80053; 81001; 82962; 83605; 83735; 83880; 84550; 85025; 85379; 86141; 87040; 87081; 87426; 93005; 93306; 93971; 94640; 96365; 96372; 96375; G0378; J0696; J1815; J3490

== ENCOUNTER 2021-07-09 09:10 | Emergency (ER) | payer MEDICARE, MEDICAID ==
[~2021-07-09] VITALS: Ht 160 cm; Wt 77.1 kg
[2021-07-09] MEDS ORDERED: ONDANSETRON HCL 4 MG/2 ML VIAL IV ONE ×2 (09:15→15:00)
[2021-07-09] MEDS ORDERED: HYDROmorphone HCL 2 MG/ML VL/or syr IV ONE ×2 (09:15→15:00)
[2021-07-09 09:55] LABS: Basophils # (auto) 0.1 10 ^3/uL (0-0.2); Hemoglobin 12.3 g/dL (12.2-16.2); Lymphocytes # (auto) 1.1 10 ^3/uL (0.4-5.4); Lymphocytes % (auto) 12.5 % (10.0-50.0); Mean Corpuscular Hemoglobin 24.9 pg (28.0-32.0); Mean Corpuscular Hgb Conc. 32.4 g/dL (32.0-36.0); Neutrophils # (auto) 6.3 10 ^3/uL (1.6-8.6)
[2021-07-09 09:57] LABS: Basophils % (auto) 0.8 % (0.0-2.0); Eosinophils # (auto) 0.1 10 ^3/uL (0-0.8); Eosinophils % (auto) 0.6 % (0.0-7.0); Mean Corpuscular Volume 76.8 fL (80.0-100.0); Monocytes % (auto) 11.6 % (0.0-12.0); Neutrophils % (auto) 74.5 % (37.0-80.0); Red Blood Cells 4.94 10^6/uL (4.0-5.20); Red Cell Distribution Width 16.9 % (11.8-14.3); White Blood Cell 8.5 10^3/uL (4.4-10.8)
[2021-07-09 10:37] LABS: Albumin 3.6 g/dL (3.4-5.0); Calcium 9.2 mg/dL (8.5-10.1)
[2021-07-09 10:40] LABS: BUN/Creatinine Ratio 17.8; Bilirubin, Total 0.9 mg/dL (0.2-1.0); Total Protein 8.1 g/dL (6.4-8.2)
[2021-07-09 12:50] LABS: Urine Specific Gravity 1.017 (1.001-1.035)
[2021-07-09 12:51] LABS: Urine Blood Negative /uL (Negative)
[2021-07-09 12:53] LABS: Urine WBC 0-5 /hpf (0 - 5)
[2021-07-09 12:54] LABS: Urine Bacteria MODERATE /hpf (None Seen)
[2021-07-09] MEDS ORDERED: PANT40TA2 PO (14:26)
[2021-07-09] MEDS ORDERED: PRED10TA PO (14:26)
[2021-07-09] MEDS ORDERED: IBU600T PO (14:26)
[2021-07-09] MEDS ORDERED: cefTRIAXone 1GM/50ML D5W 50 ML IV ONE (14:45)
[2021-07-09 15:50] VITALS: BP 139/71
== END 2021-07-09 16:41 | disposition home or self-care (01) ==
LOC: ER 09:10
DX: M51.36 Other intervertebral disc degeneration, lumbar region (principal); I10 Essential (primary) hypertension; I11.0 Hypertensive heart disease with heart failure; I50.9 Heart failure, unspecified; I48.91 Unspecified atrial fibrillation; E11.9 Type 2 diabetes mellitus without complications; Z90.49 Acquired absence of other specified parts of digestive tract; Z90.710 Acquired absence of both cervix and uterus; Z95.0 Presence of cardiac pacemaker; Z79.899 Other long term (current) drug therapy; Z88.8 Allergy status to other drugs, medicaments and biological substances
CPT/HCPCS: 36415; 72131; 80053; 81001; 83690; 84484; 85025; 93005; 96365; 96375; 96376; 99285; J0696; J1170; J2405

== ENCOUNTER 2022-01-14 17:20 | Inpatient (IN) | payer MEDICARE, MEDICAID ==
[~2022-01-14] VITALS: Ht 160 cm; Wt 87.7 kg
[~2022-01-14 17:20] MED LIST changes: +ALBU0.084 NEB; +AMIO200T33 PO; +BUDE0.5S IN; +CAR125T OR; +COLC0.6T56 PO; -FUR20T PO; +FURO40TA4 PO; +GABA100C9 PO; +HYDR-4798 PO; -METO25TA5 PO; +OMEP-434 PO; +PANT40TA2 PO; +POTA-220 PO; +PRED20TA2 PO
[2022-01-14] MEDS ORDERED: IPRATROPIUM BROM 0.5 MG/2.5ML INH SOL NEB ONE ×2 (17:45→18:30)
[2022-01-14] MEDS ORDERED: ALBUTEROL SULF 2.5 MG/0.5ML(0.5%) NEB SOLN NEB ONE ×2 (17:45→18:30)
[2022-01-14 18:27] VITALS: BP 137/99
[2022-01-14 18:30] LABS: Basophils # (auto) 0 10 ^3/uL (0-0.2); Basophils % (auto) 0.1 % (0.0-2.0); Eosinophils # (auto) 0 10 ^3/uL (0-0.8); Hemoglobin 11.5 g/dL (12.2-16.2); Lymphocytes % (auto) 8.4 % (10.0-50.0); Mean Corpuscular Hgb Conc. 31.2 g/dL (32.0-36.0); Monocytes # (auto) 1.9 10 ^3/uL (0-1.3); Monocytes % (auto) 15.9 % (0.0-12.0); Neutrophils # (auto) 8.8 10 ^3/uL (1.6-8.6); Neutrophils % (auto) 75.6 % (37.0-80.0); Nucleated Red Blood Cells % 0.1 %; Red Blood Cells 4.81 10^6/uL (4.0-5.20); Red Cell Distribution Width 19.9 % (11.8-14.3); White Blood Cell 11.7 10^3/uL (4.4-10.8)
[2022-01-14] MEDS ORDERED: DexAMETHasone SOD PHOS 10MG/1ML VIAL INJ IV ONE (18:30)
[2022-01-14] MEDS ORDERED: MAGNESIUM SULFATE 1GM/100ML 100 ML IV ONE (18:30)
[2022-01-14] MEDS ORDERED: FUROSEMIDE 40 MG/4 ML VIAL ONE (18:43)
[2022-01-14] MEDS ORDERED: FUROSEMIDE 40 MG/4 ML VIAL IV ONE (18:45)
[2022-01-14 18:46] LABS: INR 1.13 (0.9-1.15); Partial Thromboplastin Time 28.2 sec (24.6-33.4)
[2022-01-14] MEDS ORDERED: ASPirin 325 MG TAB PO ONE (20:15)
[2022-01-14 20:37] LABS: Albumin 3.1 g/dL (3.4-5.0); BUN/Creatinine Ratio 13.8; Bilirubin, Total 2.1 mg/dL (0.2-1.0); Calcium 8.9 mg/dL (8.5-10.1); Potassium 3.1 mmol/L (3.5-5.1); Total Protein 6.7 g/dL (6.4-8.2)
[2022-01-14] MEDS ORDERED: NITROGLYCERIN 0.4 MG SL TAB SL PRN (21:00)
[2022-01-14] MEDS ORDERED: TEMAZEPAM 15 MG CAP PO PRN (21:00)
[2022-01-14] MEDS ORDERED: MORPHINE SULFATE INJ 2 MG/ml SYRG IV PRN (21:00)
[2022-01-14] MEDS ORDERED: ONDANSETRON HCL 4 MG/2 ML VIAL IV PRN (21:00)
[2022-01-14] MEDS: HEPARIN SODIUM (PORCINE) 5000 UNITS/ML 1ML VIAL SC SCH ×2 (22:00→22:52)
[2022-01-14 22:30] VITALS: BP 116/56
[2022-01-14 23:44] VITALS: BP 129/57
[2022-01-15] VITALS (7 sets, daily range): BP systolic 110–133; BP diastolic 46–115
[2022-01-15] MEDS ORDERED: IPRATROPIUM BROM 0.5 MG/2.5ML INH SOL NEB SCH
[2022-01-15] MEDS: IPRATROPIUM BROM 0.5 MG/2.5ML INH SOL NEB SCH ×3 (02:24→19:04)
[2022-01-15 04:16] LABS: Basophils # (auto) 0 10 ^3/uL (0-0.2); Basophils % (auto) 0.1 % (0.0-2.0); Eosinophils # (auto) 0 10 ^3/uL (0-0.8); Lymphocytes # (auto) 0.2 10 ^3/uL (0.4-5.4); Monocytes # (auto) 0.6 10 ^3/uL (0-1.3)
[2022-01-15 04:18] LABS: Hematocrit 33.1 % (36.0-46.0); Hemoglobin 10.5 g/dL (12.2-16.2); Lymphocytes % (auto) 1.6 % (10.0-50.0); Mean Corpuscular Hemoglobin 24.2 pg (28.0-32.0); Mean Corpuscular Hgb Conc. 31.7 g/dL (32.0-36.0); Mean Corpuscular Volume 76.6 fL (80.0-100.0); Neutrophils # (auto) 9.3 10 ^3/uL (1.6-8.6); Neutrophils % (auto) 92.3 % (37.0-80.0); Red Blood Cells 4.32 10^6/uL (4.0-5.20); Red Cell Distribution Width 19.8 % (11.8-14.3)
[2022-01-15 04:44] LABS: Albumin 2.5 g/dL (3.4-5.0); BUN/Creatinine Ratio 14.7; Bilirubin, Total 1.6 mg/dL (0.2-1.0); Calcium 8.3 mg/dL (8.5-10.1); Total Protein 6.4 g/dL (6.4-8.2)
[2022-01-15 05:03] LABS: Potassium 2.6 mmol/L (3.5-5.1)
[2022-01-15] MEDS ORDERED: POTASSIUM CHL 20 Meq TABLET PO ONE (05:30)
[2022-01-15] MEDS: HEPARIN SODIUM (PORCINE) 5000 UNITS/ML 1ML VIAL SC SCH (07:05)
[2022-01-15] MEDS: PANTOPRAZOLE 40 MG/10 ML VIAL INJ IV SCH (09:39)
[2022-01-15] MEDS: AZITHROMYCIN 500MG/ 250ML 250 ML IV SCH (09:39)
[2022-01-15] MEDS ORDERED: POTASSIUM CHL 20MEQ/100ML 100 ML IV SCH (14:15)
[2022-01-15] MEDS ORDERED: FUROSEMIDE 20 MG/2 ML VIAL IV ONE (14:30)
[2022-01-15] MEDS: POTASSIUM CHL 20MEQ/100ML 100 ML IV SCH ×2 (16:06→21:50)
[2022-01-15] MEDS: methylPREDNISolone SOD SUCC 40 MG/ML VL IV SCH (21:50)
[2022-01-15] MEDS: APIXABAN 5 MG TAB PO SCH (21:52)
[2022-01-15] MEDS ORDERED: CARVEDILOL 12.5 MG TAB PO SCH (22:00)
[2022-01-15] MEDS: MORPHINE SULFATE INJ 2 MG/ml SYRG IV PRN (22:37)
[2022-01-16] VITALS (7 sets, daily range): BP systolic 73–131; BP diastolic 49–75
[2022-01-16 06:18] LABS: Basophils # (auto) 0 10 ^3/uL (0-0.2); Eosinophils # (auto) 0 10 ^3/uL (0-0.8); Lymphocytes # (auto) 0.4 10 ^3/uL (0.4-5.4); Nucleated Red Blood Cells % 0.1 %
[2022-01-16 06:19] LABS: Basophils % (auto) 0.1 % (0.0-2.0); Hematocrit 29.8 % (36.0-46.0); Hemoglobin 9.3 g/dL (12.2-16.2); Lymphocytes % (auto) 3.4 % (10.0-50.0); Mean Corpuscular Hemoglobin 23.6 pg (28.0-32.0); Mean Corpuscular Hgb Conc. 31.3 g/dL (32.0-36.0); Mean Corpuscular Volume 75.3 fL (80.0-100.0); Monocytes # (auto) 0.6 10 ^3/uL (0-1.3); Neutrophils # (auto) 10.4 10 ^3/uL (1.6-8.6); Neutrophils % (auto) 91.5 % (37.0-80.0); Red Blood Cells 3.95 10^6/uL (4.0-5.20); Red Cell Distribution Width 19.7 % (11.8-14.3); White Blood Cell 11.4 10^3/uL (4.4-10.8)
[2022-01-16 06:26] LABS: Albumin 2.3 g/dL (3.4-5.0); BUN/Creatinine Ratio 17.2; Calcium 7.7 mg/dL (8.5-10.1); Magnesium 2.1 mg/dL (1.6-2.6); Potassium 4.3 mmol/L (3.5-5.1); Total Protein 5.4 g/dL (6.4-8.2)
[2022-01-16] MEDS: IPRATROPIUM BROM 0.5 MG/2.5ML INH SOL NEB SCH ×5 (06:39→22:16)
[2022-01-16] MEDS ORDERED: COLCHICINE 0.6 MG CAP PO SCH (10:00)
[2022-01-16] MEDS ORDERED: FUROSEMIDE 40 MG TAB PO SCH (10:00)
[2022-01-16] MEDS: methylPREDNISolone SOD SUCC 40 MG/ML VL IV SCH ×2 (10:38→23:18)
[2022-01-16] MEDS: PANTOPRAZOLE 40 MG/10 ML VIAL INJ IV SCH (10:38)
[2022-01-16] MEDS: AMIODARONE HCL 200 MG TAB PO SCH (10:39)
[2022-01-16] MEDS: AZITHROMYCIN 500MG/ 250ML 250 ML IV SCH (10:39)
[2022-01-16] MEDS: CARVEDILOL 3.125 MG TAB PO SCH ×2 (10:39→23:20)
[2022-01-16] MEDS: APIXABAN 5 MG TAB PO SCH ×2 (10:39→23:20)
[2022-01-16] MEDS: ATORVASTATIN 20 MG TAB PO SCH (10:40)
[2022-01-16] MEDS: LORazepam 0.5 MG TAB PO PRN (12:06)
[2022-01-16] MEDS: ALBUTEROL SULF 2.5 MG/0.5ML(0.5%) NEB SOLN NEB SCH (22:16)
[2022-01-17] VITALS (8 sets, daily range): BP systolic 85–142; BP diastolic 46–75
[2022-01-17] MEDS: ALBUTEROL SULF 2.5 MG/0.5ML(0.5%) NEB SOLN NEB SCH ×6 (02:00→22:27)
[2022-01-17] MEDS: IPRATROPIUM BROM 0.5 MG/2.5ML INH SOL NEB SCH ×6 (02:00→22:27)
[2022-01-17 06:35] LABS: Calcium 7.7 mg/dL (8.5-10.1); Magnesium 2.3 mg/dL (1.6-2.6); Potassium 4.6 mmol/L (3.5-5.1)
[2022-01-17 06:37] LABS: BUN/Creatinine Ratio 19.3
[2022-01-17 06:53] LABS: Basophils # (auto) 0 10 ^3/uL (0-0.2); Basophils % (auto) 0.1 % (0.0-2.0); Eosinophils # (auto) 0 10 ^3/uL (0-0.8); Hematocrit 29.8 % (36.0-46.0); Hemoglobin 9.6 g/dL (12.2-16.2); Lymphocytes # (auto) 0.2 10 ^3/uL (0.4-5.4); Lymphocytes % (auto) 2.7 % (10.0-50.0); Mean Corpuscular Hemoglobin 24.2 pg (28.0-32.0); Mean Corpuscular Hgb Conc. 32.1 g/dL (32.0-36.0); Mean Corpuscular Volume 75.3 fL (80.0-100.0); Monocytes # (auto) 0.6 10 ^3/uL (0-1.3); Monocytes % (auto) 6.2 % (0.0-12.0); Neutrophils # (auto) 8.2 10 ^3/uL (1.6-8.6); Nucleated Red Blood Cells % 0.4 %; Red Blood Cells 3.95 10^6/uL (4.0-5.20); Red Cell Distribution Width 19.7 % (11.8-14.3); White Blood Cell 9.1 10^3/uL (4.4-10.8)
[2022-01-17] MEDS ORDERED: SODIUM CHLORIDE 0.9% 1,000 ML IV SCH (10:15)
[2022-01-17] MEDS: PANTOPRAZOLE 40 MG/10 ML VIAL INJ IV SCH (10:51)
[2022-01-17] MEDS: methylPREDNISolone SOD SUCC 40 MG/ML VL IV SCH ×2 (10:51→21:38)
[2022-01-17] MEDS: CARVEDILOL 3.125 MG TAB PO SCH (10:52)
[2022-01-17] MEDS: AMIODARONE HCL 200 MG TAB PO SCH (10:52)
[2022-01-17] MEDS: AZITHROMYCIN 500MG/ 250ML 250 ML IV SCH (10:52)
[2022-01-17] MEDS: APIXABAN 5 MG TAB PO SCH ×2 (10:53→21:38)
[2022-01-17] MEDS: ATORVASTATIN 20 MG TAB PO SCH (10:53)
[2022-01-17] MEDS: MORPHINE SULFATE INJ 2 MG/ml SYRG IV PRN (12:01)
[2022-01-17 13:17] LABS: Urine Bacteria NONE SEEN /hpf (None Seen); Urine Blood 3+ /uL (Negative); Urine WBC 1405 /hpf (0 - 5); Urine WBC Clumps PRESENT /hpf (None Seen)
[2022-01-17 13:23] LABS: Urine Specific Gravity 1.012 (1.001-1.035)
[2022-01-17] MEDS ORDERED: cefTRIAXone 1GM/50ML D5W 50 ML IV ONE (13:45)
[2022-01-17] MEDS: SODIUM CHLORIDE 0.9% 1,000 ML IV SCH ×2 (13:51→17:36)
[2022-01-18] MEDS: ALBUTEROL SULF 2.5 MG/0.5ML(0.5%) NEB SOLN NEB SCH ×7 (02:35→22:00)
[2022-01-18] MEDS: IPRATROPIUM BROM 0.5 MG/2.5ML INH SOL NEB SCH ×7 (02:35→22:00)
[2022-01-18 05:00] VITALS: BP 104/55
[2022-01-18 08:28] LABS: BUN/Creatinine Ratio 21.7; Calcium 7.2 mg/dL (8.5-10.1); Potassium 4.6 mmol/L (3.5-5.1)
[2022-01-18 08:58] VITALS: BP 136/64
[2022-01-18] MEDS: methylPREDNISolone SOD SUCC 40 MG/ML VL IV SCH ×2 (09:45→22:00)
[2022-01-18] MEDS: PANTOPRAZOLE 40 MG/10 ML VIAL INJ IV SCH (09:45)
[2022-01-18] MEDS: APIXABAN 5 MG TAB PO SCH ×2 (09:46→22:00)
[2022-01-18] MEDS: AMIODARONE HCL 200 MG TAB PO SCH (09:46)
[2022-01-18] MEDS: ATORVASTATIN 20 MG TAB PO SCH (09:46)
[2022-01-18] MEDS: cefTRIAXone 1GM/50ML D5W 50 ML IV SCH (09:46)
[2022-01-18] MEDS: AZITHROMYCIN 500MG/ 250ML 250 ML IV SCH (09:46)
[2022-01-18] MEDS: MORPHINE SULFATE INJ 2 MG/ml SYRG IV PRN (10:12)
[2022-01-18 12:38] VITALS: BP 100/51
[2022-01-18] MEDS: SODIUM BICARBONATE 50ML VIAL 100 ML in SOD CHL 0.45% 1,000 ML IV SCH ×2 (12:38→20:44)
[2022-01-18 16:51] VITALS: BP 98/58
[2022-01-18] MEDS ORDERED: Ensure HIGH Protein Chocolate 8oz Bottle PO SCH (18:00)
[2022-01-18] MEDS ORDERED: FUROSEMIDE 40 MG/4 ML VIAL IV ONE ×2 (18:15→20:00)
[2022-01-18 22:00] VITALS: BP 119/59
[2022-01-18] MEDS: BUDESONIDE (INHALATION) 0.5 MG/2 ML NEB NEB SCH (22:00)
[2022-01-19] MEDS: IPRATROPIUM BROM 0.5 MG/2.5ML INH SOL NEB SCH ×3 (02:00→09:30)
[2022-01-19] MEDS: ALBUTEROL SULF 2.5 MG/0.5ML(0.5%) NEB SOLN NEB SCH ×3 (02:00→09:30)
[2022-01-19 05:00] VITALS: BP 121/57
[2022-01-19] MEDS: methylPREDNISolone SOD SUCC 40 MG/ML VL IV SCH ×3 (06:42→21:11)
[2022-01-19] MEDS: BUDESONIDE (INHALATION) 0.5 MG/2 ML NEB NEB SCH (06:50)
[2022-01-19] MEDS: SODIUM BICARBONATE 50ML VIAL 100 ML in SOD CHL 0.45% 1,000 ML IV SCH ×2 (07:30→21:13)
[2022-01-19 08:00] VITALS: BP 110/63
[2022-01-19] MEDS: ATORVASTATIN 20 MG TAB PO SCH ×2 (10:04→11:43)
[2022-01-19] MEDS: APIXABAN 5 MG TAB PO SCH ×3 (10:04→21:11)
[2022-01-19] MEDS: AZITHROMYCIN 500MG/ 250ML 250 ML IV SCH ×2 (10:04→11:44)
[2022-01-19] MEDS: cefTRIAXone 1GM/50ML D5W 50 ML IV SCH ×2 (10:04→11:43)
[2022-01-19] MEDS: AMIODARONE HCL 200 MG TAB PO SCH ×2 (10:05→11:43)
[2022-01-19] MEDS: PANTOPRAZOLE 40 MG/10 ML VIAL INJ IV SCH (10:08)
[2022-01-19 12:00] VITALS: BP 105/55
[2022-01-19 12:44] LABS: Albumin 2.2 g/dL (3.4-5.0); BUN/Creatinine Ratio 25.8; Bilirubin, Total 0.8 mg/dL (0.2-1.0); Calcium 7.2 mg/dL (8.5-10.1); Potassium 4.5 mmol/L (3.5-5.1); Total Protein 5.1 g/dL (6.4-8.2)
[2022-01-19] MEDS: IPRATROPIUM BROM 0.5 MG/2.5ML INH SOL NEB PRN (12:49)
[2022-01-19] MEDS: ALBUTEROL SULF 2.5 MG/0.5ML(0.5%) NEB SOLN NEB PRN (12:49)
[2022-01-19 16:00] VITALS: BP 109/54
[2022-01-19 22:00] VITALS: BP 94/57
[2022-01-19] MEDS: OXYCODONE W/ ACETAMINOPHEN 5/325MG TABLET PO PRN (23:20)
[2022-01-20 05:00] VITALS: BP 110/60
[2022-01-20] MEDS: SODIUM BICARBONATE 50ML VIAL 100 ML in SOD CHL 0.45% 1,000 ML IV SCH (05:30)
[2022-01-20] MEDS: methylPREDNISolone SOD SUCC 40 MG/ML VL IV SCH ×3 (06:20→22:00)
[2022-01-20 10:37] VITALS: BP 105/59
[2022-01-20] MEDS: AZITHROMYCIN 500MG/ 250ML 250 ML IV SCH (12:27)
[2022-01-20] MEDS: cefTRIAXone 1GM/50ML D5W 50 ML IV SCH (12:27)
[2022-01-20] MEDS: PANTOPRAZOLE 40 MG/10 ML VIAL INJ IV SCH (12:27)
[2022-01-20] MEDS: AMIODARONE HCL 200 MG TAB PO SCH (12:28)
[2022-01-20] MEDS: APIXABAN 5 MG TAB PO SCH (12:28)
[2022-01-20] MEDS: ATORVASTATIN 20 MG TAB PO SCH (12:28)
[2022-01-20 13:12] LABS: Anion Gap 13 (5-15); BUN/Creatinine Ratio 26.1; Blood Urea Nitrogen 78 mg/dL (7-18); Carbon Dioxide 22 mmol/L (21-32); Chloride 100 mmol/L (98-107); GFR African American 20 mL/min; GFR Non-African American 16 mL/min; Glucose 267 mg/dL (74-106); Potassium 4.7 mmol/L (3.5-5.1); Sodium 135 mmol/L (136-145)
[2022-01-20 13:13] LABS: Alanine Aminotransferase 57 U/L (13-56); Albumin 2.1 g/dL (3.4-5.0); Alkaline Phosphatase 104 U/L (45-117); Aspartate Aminotransferase 24 U/L (15-37); Bilirubin, Total 0.5 mg/dL (0.2-1.0); Calcium 7.5 mg/dL (8.5-10.1); Total Protein 5.7 g/dL (6.4-8.2)
[2022-01-20 14:26] VITALS: BP 99/52
[2022-01-20] MEDS: ALBUTEROL SULF 2.5 MG/0.5ML(0.5%) NEB SOLN NEB PRN (16:33)
[2022-01-20] MEDS: IPRATROPIUM BROM 0.5 MG/2.5ML INH SOL NEB PRN (16:33)
[2022-01-20 17:44] VITALS: BP 118/52
[2022-01-20 22:00] VITALS: BP 114/63
[2022-01-21] MEDS: APIXABAN 5 MG TAB PO SCH ×3 (00:35→21:22)
[2022-01-21 00:54] VITALS: BP 114/63
[2022-01-21] MEDS: OXYCODONE W/ ACETAMINOPHEN 5/325MG TABLET PO PRN ×2 (04:51→22:53)
[2022-01-21 05:00] VITALS: BP 114/64
[2022-01-21] MEDS: methylPREDNISolone SOD SUCC 40 MG/ML VL IV SCH ×3 (06:21→21:22)
[2022-01-21] MEDS: IPRATROPIUM BROM 0.5 MG/2.5ML INH SOL NEB PRN ×3 (06:54→16:32)
[2022-01-21] MEDS: ALBUTEROL SULF 2.5 MG/0.5ML(0.5%) NEB SOLN NEB PRN ×3 (06:54→16:32)
[2022-01-21 09:00] VITALS: BP 113/65
[2022-01-21] MEDS: AMIODARONE HCL 200 MG TAB PO SCH (10:00)
[2022-01-21] MEDS: ATORVASTATIN 20 MG TAB PO SCH (11:18)
[2022-01-21] MEDS: PANTOPRAZOLE 40 MG/10 ML VIAL INJ IV SCH (11:24)
[2022-01-21] MEDS: cefTRIAXone 1GM/50ML D5W 50 ML IV SCH (11:41)
[2022-01-21 14:00] VITALS: BP 105/80
[2022-01-21 14:06] LABS: Albumin 2.2 g/dL (3.4-5.0); BUN/Creatinine Ratio 30.7; Calcium 8.1 mg/dL (8.5-10.1); Potassium 4.6 mmol/L (3.5-5.1)
[2022-01-21 14:09] LABS: Bilirubin, Total 0.6 mg/dL (0.2-1.0); Total Protein 5.6 g/dL (6.4-8.2)
[2022-01-21 14:28] VITALS: BP 102/63
[2022-01-21] MEDS ORDERED: CALCIUM CARB 500 MG CHEW TAB PO PRN (14:30)
[2022-01-21] MEDS: IPRATROPIUM BROM 0.5 MG/2.5ML INH SOL NEB SCH ×2 (20:11→22:42)
[2022-01-21] MEDS: ALBUTEROL SULF 2.5 MG/0.5ML(0.5%) NEB SOLN NEB SCH ×2 (20:11→22:42)
[2022-01-21] MEDS ORDERED: PANTOPRAZOLE 40 MG/10 ML VIAL INJ IV SCH (22:00)
[2022-01-21 23:53] VITALS: BP 115/40
[2022-01-22] MEDS: IPRATROPIUM BROM 0.5 MG/2.5ML INH SOL NEB SCH ×6 (02:37→22:00)
[2022-01-22] MEDS: ALBUTEROL SULF 2.5 MG/0.5ML(0.5%) NEB SOLN NEB SCH ×6 (02:37→22:00)
[2022-01-22] MEDS: methylPREDNISolone SOD SUCC 40 MG/ML VL IV SCH ×3 (06:01→22:32)
[2022-01-22] MEDS: NYSTATIN (MOUTH-THROAT) 500,000 UNITS/5 ML SUSP MT SCH ×4 (06:01→22:32)
[2022-01-22 06:28] VITALS: BP 107/64
[2022-01-22 08:00] VITALS: BP 117/64
[2022-01-22 09:00] VITALS: BP 117/64
[2022-01-22] MEDS: AMIODARONE HCL 200 MG TAB PO SCH (10:00)
[2022-01-22] MEDS ORDERED: PANTOPRAZOLE 40 MG/10 ML VIAL INJ IV SCH (10:00)
[2022-01-22] MEDS: ATORVASTATIN 20 MG TAB PO SCH (10:00)
[2022-01-22] MEDS: APIXABAN 5 MG TAB PO SCH ×2 (10:00→22:00)
[2022-01-22] MEDS: cefTRIAXone 1GM/50ML D5W 50 ML IV SCH (11:45)
[2022-01-22] MEDS: PANTOPRAZOLE 40 MG/10 ML VIAL INJ IV SCH (11:45)
[2022-01-22] MEDS ORDERED: CLINIMIX PER PHARMACY 0 ML IV SCH (12:15)
[2022-01-22 15:42] LABS: Albumin 2.2 g/dL (3.4-5.0); Calcium 8.4 mg/dL (8.5-10.1); Potassium 4.8 mmol/L (3.5-5.1)
[2022-01-22 15:44] LABS: BUN/Creatinine Ratio 32.2; Bilirubin, Total 0.4 mg/dL (0.2-1.0); Total Protein 5.6 g/dL (6.4-8.2)
[2022-01-22] MEDS ORDERED: SODIUM CHLORIDE 0.9% 1,000 ML IV SCH (16:00)
[2022-01-22 16:41] VITALS: BP 106/87
[2022-01-22 20:00] VITALS: BP 124/95
[2022-01-22] MEDS ORDERED: DEXTROSE (50%) 50ML SYRG IV SCH (20:00)
[2022-01-22] MEDS: CLINIMIX PER PHARMACY IV NR (20:12)
[2022-01-22 22:00] VITALS: BP 124/95
[2022-01-22] MEDS: ACCU-CHEK COMFORT CURVE STRIP VI SCH (23:24)
[2022-01-22] MEDS: InsuLIN REG 1unit/0.01ml Soln (100units/ml) SC SCH (23:31)
[2022-01-23] MEDS: IPRATROPIUM BROM 0.5 MG/2.5ML INH SOL NEB SCH ×5 (02:35→18:00)
[2022-01-23] MEDS: ALBUTEROL SULF 2.5 MG/0.5ML(0.5%) NEB SOLN NEB SCH ×5 (02:35→18:00)
[2022-01-23 05:00] VITALS: BP 108/56
[2022-01-23] MEDS: methylPREDNISolone SOD SUCC 40 MG/ML VL IV SCH ×2 (05:49→14:22)
[2022-01-23] MEDS: ACCU-CHEK COMFORT CURVE STRIP VI SCH ×3 (05:50→17:36)
[2022-01-23] MEDS: InsuLIN REG 1unit/0.01ml Soln (100units/ml) SC SCH ×3 (06:07→17:36)
[2022-01-23] MEDS: NYSTATIN (MOUTH-THROAT) 500,000 UNITS/5 ML SUSP MT SCH ×4 (06:08→21:47)
[2022-01-23 07:04] LABS: Potassium 4.8 mmol/L (3.5-5.1)
[2022-01-23 07:12] LABS: Hemoglobin 8.8 g/dL (12.2-16.2)
[2022-01-23 07:14] LABS: Mean Corpuscular Hemoglobin 22.8 pg (28.0-32.0); Mean Corpuscular Hgb Conc. 30.2 g/dL (32.0-36.0); Mean Corpuscular Volume 75.3 fL (80.0-100.0); Red Blood Cells 3.86 10^6/uL (4.0-5.20); Red Cell Distribution Width 19.3 % (11.8-14.3); White Blood Cell 15.8 10^3/uL (4.4-10.8)
[2022-01-23 07:16] LABS: Albumin 2.3 g/dL (3.4-5.0); BUN/Creatinine Ratio 34.4; Band Neutrophils % (manual) 0; Basophils % (manual) 0 (0.0-2.0); Blast Cells 0; Calcium 8.4 mg/dL (8.5-10.1); Eosinophils % (manual) 0 (0-7); Magnesium 2.6 mg/dL (1.6-2.6); Metamyelocytes % 0; Myelocytes % 0; Promyelocytes % 0; Reactive Lymphocytes 0
[2022-01-23 07:25] LABS: Bilirubin, Total 0.4 mg/dL (0.2-1.0); Phosphorus 3.9 mg/dL (2.5-4.90); Total Protein 5.1 g/dL (6.4-8.2)
[2022-01-23] MEDS ORDERED: VANCOMYCIN PER PHARMACY 0 MG IV SCH (09:30)
[2022-01-23 09:59] LABS: Lymphocytes % (manual) 4 (10.0-50.0); Monocytes % (manual) 7 (0-12)
[2022-01-23] MEDS ORDERED: VANCOMYCIN 1GM/250ML 250 ML IV ONE (10:30)
[2022-01-23] MEDS: FLUCONAZOLE 200MG/100ML 100 ML IV SCH (10:41)
[2022-01-23] MEDS: APIXABAN 5 MG TAB PO SCH ×2 (10:42→21:48)
[2022-01-23] MEDS: PANTOPRAZOLE 40 MG/10 ML VIAL INJ IV SCH (10:42)
[2022-01-23] MEDS: AMIODARONE HCL 200 MG TAB PO SCH (10:42)
[2022-01-23] MEDS: ATORVASTATIN 20 MG TAB PO SCH (10:43)
[2022-01-23] MEDS: THROAT LOZENGES(CEPASTAT) MT PRN ×2 (12:32→15:43)
[2022-01-23 13:00] VITALS: BP 114/67
[2022-01-23] MEDS: CLINIMIX PER PHARMACY IV NR (21:21)
[2022-01-23 22:00] VITALS: BP 118/74
[2022-01-23] MEDS: CLINDAMYCIN 300MG IV 50 ML IV SCH (22:26)
[2022-01-24] VITALS (7 sets, daily range): BP systolic 101–153; BP diastolic 52–85
[2022-01-24] MEDS: ACCU-CHEK COMFORT CURVE STRIP VI SCH ×5 (00:22→23:12)
[2022-01-24] MEDS: InsuLIN REG 1unit/0.01ml Soln (100units/ml) SC SCH ×5 (00:24→23:28)
[2022-01-24] MEDS: ALBUTEROL SULF 2.5 MG/0.5ML(0.5%) NEB SOLN NEB SCH ×7 (02:00→22:28)
[2022-01-24] MEDS: IPRATROPIUM BROM 0.5 MG/2.5ML INH SOL NEB SCH ×7 (02:00→22:28)
[2022-01-24] MEDS: CLINDAMYCIN 300MG IV 50 ML IV SCH ×4 (06:00→22:16)
[2022-01-24] MEDS: NYSTATIN (MOUTH-THROAT) 500,000 UNITS/5 ML SUSP MT SCH ×4 (06:00→22:00)
[2022-01-24 06:25] LABS: Potassium 4.3 mmol/L (3.5-5.1)
[2022-01-24 06:26] LABS: BUN/Creatinine Ratio 43.3; Bilirubin, Total 0.5 mg/dL (0.2-1.0); Calcium 8.6 mg/dL (8.5-10.1); Phosphorus 3.3 mg/dL (2.5-4.90); Total Protein 5.1 g/dL (6.4-8.2)
[2022-01-24 06:27] LABS: Albumin 2.4 g/dL (3.4-5.0); Magnesium 2.6 mg/dL (1.6-2.6)
[2022-01-24] MEDS: APIXABAN 5 MG TAB PO SCH ×2 (09:56→22:00)
[2022-01-24] MEDS: AMIODARONE HCL 200 MG TAB PO SCH (09:56)
[2022-01-24] MEDS: PANTOPRAZOLE 40 MG/10 ML VIAL INJ IV SCH (09:56)
[2022-01-24] MEDS: FLUCONAZOLE 200MG/100ML 100 ML IV SCH (09:56)
[2022-01-24] MEDS: ATORVASTATIN 20 MG TAB PO SCH (09:57)
[2022-01-24] MEDS: THROAT LOZENGES(CEPASTAT) MT PRN ×3 (09:57→18:17)
[2022-01-24] MEDS: AMINO ACID INFUSION IN D10W 1,000 ML IV NR (22:16)
[2022-01-25] MEDS: ALBUTEROL SULF 2.5 MG/0.5ML(0.5%) NEB SOLN NEB SCH ×6 (02:41→22:52)
[2022-01-25] MEDS: IPRATROPIUM BROM 0.5 MG/2.5ML INH SOL NEB SCH ×6 (02:42→22:52)
[2022-01-25 05:00] VITALS: BP 124/63
[2022-01-25] MEDS: CLINDAMYCIN 300MG IV 50 ML IV SCH ×3 (05:31→21:54)
[2022-01-25] MEDS: NYSTATIN (MOUTH-THROAT) 500,000 UNITS/5 ML SUSP MT SCH ×4 (05:31→21:40)
[2022-01-25] MEDS: ACCU-CHEK COMFORT CURVE STRIP VI SCH ×3 (05:40→16:55)
[2022-01-25] MEDS: InsuLIN REG 1unit/0.01ml Soln (100units/ml) SC SCH ×3 (05:42→16:46)
[2022-01-25 06:08] LABS: Hematocrit 28.6 % (36.0-46.0); Hemoglobin 8.7 g/dL (12.2-16.2); Mean Corpuscular Hemoglobin 22.8 pg (28.0-32.0); Mean Corpuscular Hgb Conc. 30.5 g/dL (32.0-36.0); Mean Corpuscular Volume 74.6 fL (80.0-100.0); Red Blood Cells 3.83 10^6/uL (4.0-5.20); Red Cell Distribution Width 19.9 % (11.8-14.3)
[2022-01-25 06:11] LABS: Band Neutrophils % (manual) 0; Basophils % (manual) 0 (0.0-2.0); Eosinophils % (manual) 0 (0-7); Metamyelocytes % 0; Myelocytes % 0; Promyelocytes % 0; Reactive Lymphocytes 0
[2022-01-25 06:33] LABS: Potassium 4.3 mmol/L (3.5-5.1)
[2022-01-25 06:40] LABS: Albumin 2.4 g/dL (3.4-5.0); Bilirubin, Total 0.7 mg/dL (0.2-1.0); Calcium 8.6 mg/dL (8.5-10.1); Magnesium 2.5 mg/dL (1.6-2.6); Phosphorus 2.6 mg/dL (2.5-4.90)
[2022-01-25 08:00] VITALS: BP 100/61
[2022-01-25 08:25] LABS: Blast Cells 9; Lymphocytes % (manual) 4 (10.0-50.0); Monocytes % (manual) 10 (0-12)
[2022-01-25] MEDS: Glucerna Carbsteady SHAKE Vanilla 8oz PO SCH ×3 (08:33→17:56)
[2022-01-25] MEDS: FLUCONAZOLE 200MG/100ML 100 ML IV SCH (08:59)
[2022-01-25] MEDS: PANTOPRAZOLE 40 MG/10 ML VIAL INJ IV SCH (08:59)
[2022-01-25 09:00] VITALS: BP 146/56
[2022-01-25] MEDS: ATORVASTATIN 20 MG TAB PO SCH (09:06)
[2022-01-25] MEDS: APIXABAN 5 MG TAB PO SCH ×2 (09:06→21:57)
[2022-01-25] MEDS: AMIODARONE HCL 200 MG TAB PO SCH (09:06)
[2022-01-25 13:00] VITALS: BP 111/59
[2022-01-25] MEDS ORDERED: SODIUM PHOSPHATES 20 MEQ in SODIUM CHL 0.9% 100 ML IV ONE (14:15)
[2022-01-25] MEDS: LORazepam 0.5 MG TAB PO PRN (14:15)
[2022-01-25] MEDS: OXYCODONE W/ ACETAMINOPHEN 5/325MG TABLET PO PRN (14:15)
[2022-01-25 17:00] VITALS: BP 128/76
[2022-01-25] MEDS: AMINO ACID INFUSION IN D10W 1,000 ML IV NR ×2 (19:49→20:01)
[2022-01-25 22:00] VITALS: BP 146/56
[2022-01-26] MEDS: ACCU-CHEK COMFORT CURVE STRIP VI SCH ×5 (00:01→23:47)
[2022-01-26] MEDS: IPRATROPIUM BROM 0.5 MG/2.5ML INH SOL NEB SCH ×2 (03:05→08:17)
[2022-01-26] MEDS: ALBUTEROL SULF 2.5 MG/0.5ML(0.5%) NEB SOLN NEB SCH ×2 (03:05→08:17)
[2022-01-26 05:00] VITALS: BP 131/59
[2022-01-26] MEDS: CLINDAMYCIN 300MG IV 50 ML IV SCH ×3 (05:34→22:17)
[2022-01-26] MEDS: NYSTATIN (MOUTH-THROAT) 500,000 UNITS/5 ML SUSP MT SCH ×4 (05:35→22:18)
[2022-01-26] MEDS: InsuLIN REG 1unit/0.01ml Soln (100units/ml) SC SCH ×5 (05:35→23:42)
[2022-01-26 05:56] LABS: Hemoglobin 9.9 g/dL (12.2-16.2); Mean Corpuscular Hemoglobin 22.9 pg (28.0-32.0); White Blood Cell 15.8 10^3/uL (4.4-10.8)
[2022-01-26 05:58] LABS: Hematocrit 32.6 % (36.0-46.0); Mean Corpuscular Hgb Conc. 30.4 g/dL (32.0-36.0); Mean Corpuscular Volume 75.3 fL (80.0-100.0); Red Blood Cells 4.33 10^6/uL (4.0-5.20)
[2022-01-26 06:15] LABS: Albumin 2.4 g/dL (3.4-5.0); Magnesium 2.3 mg/dL (1.6-2.6); Potassium 4.3 mmol/L (3.5-5.1)
[2022-01-26 06:17] LABS: BUN/Creatinine Ratio 47.3; Phosphorus 3.3 mg/dL (2.5-4.90)
[2022-01-26 06:31] LABS: Band Neutrophils % (manual) 0; Basophils % (manual) 0 (0.0-2.0); Blast Cells 0; Eosinophils % (manual) 0 (0-7); Metamyelocytes % 0; Myelocytes % 0; Promyelocytes % 0; Reactive Lymphocytes 0
[2022-01-26] MEDS: Glucerna Carbsteady SHAKE Vanilla 8oz PO SCH ×3 (07:38→17:56)
[2022-01-26 08:00] VITALS: BP 114/55
[2022-01-26 08:51] LABS: Lymphocytes % (manual) 3 (10.0-50.0); Monocytes % (manual) 7 (0-12)
[2022-01-26 09:00] VITALS: BP 114/55
[2022-01-26] MEDS: ATORVASTATIN 20 MG TAB PO SCH (10:00)
[2022-01-26] MEDS: AMIODARONE HCL 200 MG TAB PO SCH (10:00)
[2022-01-26] MEDS: FLUCONAZOLE 200MG/100ML 100 ML IV SCH (10:13)
[2022-01-26] MEDS: ENOXAPARIN SOD 100 MG/1 ML SYRINGE SC SCH ×2 (10:14→22:18)
[2022-01-26] MEDS: PANTOPRAZOLE 40 MG/10 ML VIAL INJ IV SCH (10:14)
[2022-01-26 13:00] VITALS: BP 113/53
[2022-01-26 16:43] VITALS: BP 102/56
[2022-01-26] MEDS: MORPHINE SULFATE INJ 2 MG/ml SYRG IV PRN (17:57)
[2022-01-26] MEDS ORDERED: LORazepam 2MG/ML-1ML VIAL IV PRN (19:45)
[2022-01-26] MEDS: AMINO ACID INFUSION IN D10W 1,000 ML IV NR (19:49)
[2022-01-26] MEDS: CLINIMIX PER PHARMACY IV NR (20:35)
[2022-01-26] MEDS ORDERED: HYDROcodone-ACET 10/325MG TAB PO PRN (21:15)
[2022-01-26 22:00] VITALS: BP 113/60
[2022-01-26] MEDS: GABAPENTIN 100 MG CAP PO SCH (22:18)
[2022-01-27] VITALS (7 sets, daily range): BP systolic 106–160; BP diastolic 7–81
[2022-01-27 06:04] LABS: Basophils # (auto) 0 10 ^3/uL (0-0.2); Basophils % (auto) 0.1 % (0.0-2.0); Eosinophils # (auto) 0 10 ^3/uL (0-0.8); Eosinophils % (auto) 0.1 % (0.0-7.0); Hemoglobin 8.3 g/dL (12.2-16.2)
[2022-01-27 06:05] LABS: Hematocrit 27.3 % (36.0-46.0); Lymphocytes # (auto) 0.5 10 ^3/uL (0.4-5.4); Lymphocytes % (auto) 2.5 % (10.0-50.0); Mean Corpuscular Hemoglobin 22.9 pg (28.0-32.0); Mean Corpuscular Hgb Conc. 30.5 g/dL (32.0-36.0); Mean Corpuscular Volume 75.2 fL (80.0-100.0); Monocytes # (auto) 1.7 10 ^3/uL (0-1.3); Monocytes % (auto) 9.3 % (0.0-12.0); Neutrophils # (auto) 16.2 10 ^3/uL (1.6-8.6); Nucleated Red Blood Cells % 0.1 %; Red Blood Cells 3.63 10^6/uL (4.0-5.20); White Blood Cell 18.5 10^3/uL (4.4-10.8)
[2022-01-27] MEDS: CLINDAMYCIN 300MG IV 50 ML IV SCH ×3 (06:05→21:22)
[2022-01-27] MEDS: NYSTATIN (MOUTH-THROAT) 500,000 UNITS/5 ML SUSP MT SCH ×4 (06:06→21:22)
[2022-01-27] MEDS: ACCU-CHEK COMFORT CURVE STRIP VI SCH ×3 (06:06→20:18)
[2022-01-27 06:10] LABS: Red Cell Distribution Width 20.2 % (11.8-14.3)
[2022-01-27] MEDS: InsuLIN REG 1unit/0.01ml Soln (100units/ml) SC SCH ×3 (06:18→18:00)
[2022-01-27] MEDS: Glucerna Carbsteady SHAKE Vanilla 8oz PO SCH ×3 (07:45→20:17)
[2022-01-27] MEDS: FLUCONAZOLE 200MG/100ML 100 ML IV SCH (09:47)
[2022-01-27] MEDS: ENOXAPARIN SOD 100 MG/1 ML SYRINGE SC SCH ×2 (09:47→21:22)
[2022-01-27] MEDS: AMIODARONE HCL 200 MG TAB PO SCH (09:47)
[2022-01-27] MEDS: ATORVASTATIN 20 MG TAB PO SCH (09:47)
[2022-01-27] MEDS: PANTOPRAZOLE 40 MG/10 ML VIAL INJ IV SCH (09:47)
[2022-01-27] MEDS: GABAPENTIN 100 MG CAP PO SCH ×2 (09:47→21:22)
[2022-01-27 10:09] LABS: Free T4 (Free Thyroxine) 1.04 ng/dL (0.89-1.76)
[2022-01-27 11:08] LABS: Alanine Aminotransferase 23 U/L (13-56); Albumin 1.9 g/dL (3.4-5.0); Anion Gap 8 (5-15); Aspartate Aminotransferase 13 U/L (15-37); BUN/Creatinine Ratio 43.3; Blood Urea Nitrogen 74 mg/dL (7-18); Calcium 8.6 mg/dL (8.5-10.1); Carbon Dioxide 26 mmol/L (21-32); Chloride 108 mmol/L (98-107); GFR African American 38 mL/min; GFR Non-African American 31 mL/min; Glucose 151 mg/dL (74-106); Magnesium 2.2 mg/dL (1.6-2.6); Potassium 3.9 mmol/L (3.5-5.1); Sodium 142 mmol/L (136-145)
[2022-01-27 11:11] LABS: Alkaline Phosphatase 71 U/L (45-117); Bilirubin, Total 0.5 mg/dL (0.2-1.0); Phosphorus 2.7 mg/dL (2.5-4.90); Total Protein 5.3 g/dL (6.4-8.2)
[2022-01-27] MEDS ORDERED: CLINIMIX PER PHARMACY IV ONE (20:00)
[2022-01-27] MEDS: CLINIMIX PER PHARMACY IV NR (22:00)
[2022-01-28] VITALS (7 sets, daily range): BP systolic 111–179; BP diastolic 51–159
[2022-01-28] MEDS: ACCU-CHEK COMFORT CURVE STRIP VI SCH ×5 (00:12→23:11)
[2022-01-28] MEDS: InsuLIN REG 1unit/0.01ml Soln (100units/ml) SC SCH ×5 (00:22→23:32)
[2022-01-28] MEDS: CLINDAMYCIN 300MG IV 50 ML IV SCH ×3 (05:16→23:10)
[2022-01-28] MEDS: NYSTATIN (MOUTH-THROAT) 500,000 UNITS/5 ML SUSP MT SCH ×4 (05:16→23:10)
[2022-01-28] MEDS: ATORVASTATIN 20 MG TAB PO SCH (10:00)
[2022-01-28] MEDS: GABAPENTIN 100 MG CAP PO SCH ×2 (10:00→23:10)
[2022-01-28] MEDS: AMIODARONE HCL 200 MG TAB PO SCH (10:00)
[2022-01-28] MEDS: PANTOPRAZOLE 40 MG/10 ML VIAL INJ IV SCH (10:52)
[2022-01-28] MEDS: FLUCONAZOLE 200MG/100ML 100 ML IV SCH (10:53)
[2022-01-28] MEDS: ENOXAPARIN SOD 100 MG/1 ML SYRINGE SC SCH ×2 (10:53→23:11)
[2022-01-28] MEDS: Glucerna Carbsteady SHAKE Vanilla 8oz PO SCH ×3 (11:08→18:00)
[2022-01-28 11:42] LABS: Folate (Folic Acid) 11.92 ng/mL (5.38-24)
[2022-01-28] MEDS ORDERED: ACYCLOVIR 5MG/KG Q8HR PER RX 0 ML IV SCH (12:15)
[2022-01-28] MEDS: ACYCLOVIR SOD IV SCH ×2 (14:56→23:11)
[2022-01-28] MEDS: SODIUM CHL 0.9% IV SCH ×2 (14:56→23:11)
[2022-01-28 16:57] LABS: Anion Gap 10 (5-15); Carbon Dioxide 24 mmol/L (21-32); Chloride 110 mmol/L (98-107); Sodium 144 mmol/L (136-145)
[2022-01-28 16:58] LABS: Blood Urea Nitrogen 79 mg/dL (7-18); Glucose 140 mg/dL (74-106)
[2022-01-28 16:59] LABS: Alkaline Phosphatase 75 U/L (45-117); BUN/Creatinine Ratio 48.2; GFR African American 39 mL/min; GFR Non-African American 33 mL/min
[2022-01-28 17:00] LABS: Alanine Aminotransferase 24 U/L (13-56); Albumin 1.9 g/dL (3.4-5.0); Aspartate Aminotransferase 21 U/L (15-37); Bilirubin, Total 0.5 mg/dL (0.2-1.0); Calcium 9.2 mg/dL (8.5-10.1); Magnesium 2.7 mg/dL (1.6-2.6); Total Protein 5.6 g/dL (6.4-8.2)
[2022-01-28] MEDS: CLINIMIX PER PHARMACY IV NR (20:33)
[2022-01-29 04:41] VITALS: BP 116/60
[2022-01-29] MEDS: ACCU-CHEK COMFORT CURVE STRIP VI SCH ×3 (05:29→19:00)
[2022-01-29] MEDS: NYSTATIN (MOUTH-THROAT) 500,000 UNITS/5 ML SUSP MT SCH ×4 (05:29→22:00)
[2022-01-29] MEDS: CLINDAMYCIN 300MG IV 50 ML IV SCH ×3 (05:29→22:45)
[2022-01-29] MEDS: InsuLIN REG 1unit/0.01ml Soln (100units/ml) SC SCH ×3 (05:35→19:00)
[2022-01-29 06:06] LABS: RPR Non Reactive (Non Reactive)
[2022-01-29 07:44] LABS: Urine Blood 1+ /uL (Negative); Urine Specific Gravity 1.014 (1.001-1.035)
[2022-01-29] MEDS: Glucerna Carbsteady SHAKE Vanilla 8oz PO SCH ×3 (08:00→19:00)
[2022-01-29] MEDS: THROAT LOZENGES(CEPASTAT) MT PRN (08:22)
[2022-01-29 09:00] VITALS: BP 123/60
[2022-01-29 09:26] LABS: INR 1.24 (0.9-1.15); Partial Thromboplastin Time 32.8 sec (24.6-33.4)
[2022-01-29] MEDS: FLUCONAZOLE 200MG/100ML 100 ML IV SCH (09:45)
[2022-01-29] MEDS: AMIODARONE HCL 200 MG TAB PO SCH (09:46)
[2022-01-29] MEDS: PANTOPRAZOLE 40 MG/10 ML VIAL INJ IV SCH (09:46)
[2022-01-29] MEDS: GABAPENTIN 100 MG CAP PO SCH (09:47)
[2022-01-29] MEDS: ENOXAPARIN SOD 100 MG/1 ML SYRINGE SC SCH ×2 (09:47→22:45)
[2022-01-29] MEDS: ATORVASTATIN 20 MG TAB PO SCH (09:47)
[2022-01-29] MEDS: SODIUM CHL 0.9% IV SCH ×2 (10:00→23:07)
[2022-01-29] MEDS: ACYCLOVIR SOD IV SCH ×2 (10:00→23:07)
[2022-01-29 13:00] VITALS: BP 110/59
[2022-01-29 14:29] LABS: Albumin 1.7 g/dL (3.4-5.0); BUN/Creatinine Ratio 56.2; Calcium 8.9 mg/dL (8.5-10.1); Magnesium 2.6 mg/dL (1.6-2.6); Potassium 3.6 mmol/L (3.5-5.1)
[2022-01-29] MEDS: MORPHINE SULFATE INJ 2 MG/ml SYRG IV PRN (14:37)
[2022-01-29 17:00] VITALS: BP 101/52
[2022-01-29] MEDS ORDERED: LIDOCAINE 2% (LOCAL ANESTH.) PF 5ml SDV ONE (18:06)
[2022-01-29] MEDS ORDERED: MIDAZOLAM HCL 2MG/2ML 2ml VIAL (1mg/ml) ONE (18:06)
[2022-01-29] MEDS ORDERED: LIDOCAINE 1% (LOCAL ANESTH.) PF 5ml SDV ID ONE (18:45)
[2022-01-29] MEDS ORDERED: ONDANSETRON HCL 4 MG/2 ML VIAL IV PRN (19:00)
[2022-01-29] MEDS ORDERED: ACCU-CHEK COMFORT CURVE STRIP VI ONE (19:00)
[2022-01-29 20:00] VITALS: BP 115/63
[2022-01-29 22:00] VITALS: BP 115/63
[2022-01-29] MEDS: CLINIMIX PER PHARMACY IV NR (22:45)
[2022-01-30] MEDS: ACCU-CHEK COMFORT CURVE STRIP VI SCH ×5 (00:36→23:42)
[2022-01-30] MEDS: LORazepam 0.5 MG TAB PO PRN (02:50)
[2022-01-30 05:00] VITALS: BP 96/61
[2022-01-30] MEDS: CLINDAMYCIN 300MG IV 50 ML IV SCH ×3 (05:50→21:54)
[2022-01-30] MEDS: NYSTATIN (MOUTH-THROAT) 500,000 UNITS/5 ML SUSP MT SCH ×4 (05:51→21:22)
[2022-01-30 06:44] LABS: Basophils # (auto) 0 10 ^3/uL (0-0.2); Basophils % (auto) 0.1 % (0.0-2.0); Eosinophils # (auto) 0 10 ^3/uL (0-0.8); Eosinophils % (auto) 0.3 % (0.0-7.0); Hematocrit 27.9 % (36.0-46.0); Hemoglobin 8.4 g/dL (12.2-16.2); Lymphocytes # (auto) 0.3 10 ^3/uL (0.4-5.4); Lymphocytes % (auto) 3.1 % (10.0-50.0); Mean Corpuscular Hemoglobin 22.6 pg (28.0-32.0); Mean Corpuscular Hgb Conc. 30.1 g/dL (32.0-36.0); Mean Corpuscular Volume 75.2 fL (80.0-100.0); Monocytes % (auto) 10.8 % (0.0-12.0); Neutrophils # (auto) 7.7 10 ^3/uL (1.6-8.6); Neutrophils % (auto) 85.7 % (37.0-80.0); Nucleated Red Blood Cells % 0.3 %; Red Blood Cells 3.71 10^6/uL (4.0-5.20)
[2022-01-30 06:45] LABS: Red Cell Distribution Width 20.6 % (11.8-14.3)
[2022-01-30] MEDS: InsuLIN REG 1unit/0.01ml Soln (100units/ml) SC SCH ×5 (06:48→23:41)
[2022-01-30] MEDS: Glucerna Carbsteady SHAKE Vanilla 8oz PO SCH ×3 (08:00→18:00)
[2022-01-30 09:00] VITALS: BP 129/64
[2022-01-30] MEDS: PANTOPRAZOLE 40 MG/10 ML VIAL INJ IV SCH (09:52)
[2022-01-30] MEDS: ATORVASTATIN 20 MG TAB PO SCH (10:00)
[2022-01-30] MEDS: AMIODARONE HCL 200 MG TAB PO SCH (10:00)
[2022-01-30] MEDS: ENOXAPARIN SOD 80 MG/0.8ML SYRINGE SC SCH ×2 (12:45→21:43)
[2022-01-30 13:00] VITALS: BP 146/62
[2022-01-30 14:10] LABS: Albumin 1.7 g/dL (3.4-5.0); BUN/Creatinine Ratio 46.4; Magnesium 2.6 mg/dL (1.6-2.6); Phosphorus 3.1 mg/dL (2.5-4.90); Potassium 3.8 mmol/L (3.5-5.1)
[2022-01-30] MEDS ORDERED: TPN PER PHARMACY 0 ML IV SCH (15:00)
[2022-01-30 17:01] VITALS: BP 125/62
[2022-01-30] MEDS ORDERED: ACYCLOVIR 5MG/KG Q8HR PER RX 0 ML IV SCH (21:00)
[2022-01-30] MEDS: CLINIMIX PER PHARMACY IV NR (21:43)
[2022-01-30 22:00] VITALS: BP 124/55
[2022-01-30] MEDS: ACYCLOVIR SOD IV SCH (23:32)
[2022-01-30] MEDS: SODIUM CHL 0.9% IV SCH (23:32)
[2022-01-31 05:00] VITALS: BP 119/66
[2022-01-31] MEDS: NYSTATIN (MOUTH-THROAT) 500,000 UNITS/5 ML SUSP MT SCH ×4 (05:13→21:33)
[2022-01-31] MEDS: CLINDAMYCIN 300MG IV 50 ML IV SCH ×3 (05:43→21:33)
[2022-01-31] MEDS: ACCU-CHEK COMFORT CURVE STRIP VI SCH ×3 (05:44→17:50)
[2022-01-31] MEDS: InsuLIN REG 1unit/0.01ml Soln (100units/ml) SC SCH ×3 (05:47→17:50)
[2022-01-31] MEDS: Glucerna Carbsteady SHAKE Vanilla 8oz PO SCH ×3 (08:00→17:40)
[2022-01-31] MEDS: ACYCLOVIR SOD IV SCH ×2 (09:03→22:30)
[2022-01-31] MEDS: PANTOPRAZOLE 40 MG/10 ML VIAL INJ IV SCH (09:03)
[2022-01-31] MEDS: SODIUM CHL 0.9% IV SCH ×2 (09:03→22:30)
[2022-01-31] MEDS: ENOXAPARIN SOD 80 MG/0.8ML SYRINGE SC SCH ×2 (09:03→21:34)
[2022-01-31] MEDS: AMIODARONE HCL 200 MG TAB PO SCH (09:12)
[2022-01-31] MEDS: ATORVASTATIN 20 MG TAB PO SCH (09:12)
[2022-01-31 09:13] VITALS: BP 98/53
[2022-01-31] MEDS ORDERED: FUROSEMIDE 40 MG/4 ML VIAL IV ONE (10:30)
[2022-01-31 13:00] VITALS: BP 137/66
[2022-01-31] MEDS: ALBUTEROL SULF 2.5 MG/0.5ML(0.5%) NEB SOLN NEB SCH ×3 (16:45→23:10)
[2022-01-31] MEDS: IPRATROPIUM BROM 0.5 MG/2.5ML INH SOL NEB SCH ×3 (16:45→23:11)
[2022-01-31 17:00] VITALS: BP 120/64
[2022-01-31 19:46] VITALS: BP 120/64
[2022-01-31 22:15] VITALS: BP 103/66
[2022-02-01] MEDS: ACCU-CHEK COMFORT CURVE STRIP VI SCH ×5 (00:36→23:50)
[2022-02-01] MEDS: InsuLIN REG 1unit/0.01ml Soln (100units/ml) SC SCH ×4 (00:49→18:00)
[2022-02-01] MEDS: CLINIMIX PER PHARMACY IV NR ×2 (00:51→23:50)
[2022-02-01] MEDS: IPRATROPIUM BROM 0.5 MG/2.5ML INH SOL NEB SCH ×6 (03:08→23:31)
[2022-02-01] MEDS: ALBUTEROL SULF 2.5 MG/0.5ML(0.5%) NEB SOLN NEB SCH ×6 (03:08→23:31)
[2022-02-01 04:31] VITALS: BP 122/66
[2022-02-01] MEDS: NYSTATIN (MOUTH-THROAT) 500,000 UNITS/5 ML SUSP MT SCH ×4 (05:48→21:56)
[2022-02-01] MEDS: CLINDAMYCIN 300MG IV 50 ML IV SCH ×3 (06:26→21:52)
[2022-02-01 07:33] LABS: Albumin 1.9 g/dL (3.4-5.0); Calcium 9.1 mg/dL (8.5-10.1); Magnesium 2.2 mg/dL (1.6-2.6); Potassium 3.6 mmol/L (3.5-5.1)
[2022-02-01 07:37] LABS: BUN/Creatinine Ratio 47.8; Bilirubin, Total 0.5 mg/dL (0.2-1.0); Total Protein 5.1 g/dL (6.4-8.2)
[2022-02-01] MEDS: Glucerna Carbsteady SHAKE Vanilla 8oz PO SCH ×3 (08:00→18:00)
[2022-02-01] MEDS: AMIODARONE HCL 200 MG TAB PO SCH (08:34)
[2022-02-01] MEDS: ATORVASTATIN 20 MG TAB PO SCH (08:34)
[2022-02-01] MEDS: ACYCLOVIR SOD IV SCH ×2 (08:41→21:52)
[2022-02-01] MEDS: PANTOPRAZOLE 40 MG/10 ML VIAL INJ IV SCH (08:41)
[2022-02-01] MEDS: SODIUM CHL 0.9% IV SCH ×2 (08:41→21:52)
[2022-02-01] MEDS: ENOXAPARIN SOD 80 MG/0.8ML SYRINGE SC SCH ×2 (08:41→21:57)
[2022-02-01 08:46] VITALS: BP 123/62
[2022-02-01] MEDS ORDERED: ALBUMIN 25% 50 ML IV ONE (11:30)
[2022-02-01] MEDS ORDERED: FUROSEMIDE 40 MG/4 ML VIAL IV ONE (11:30)
[2022-02-01 12:21] VITALS: BP 120/75
[2022-02-01 16:52] VITALS: BP 113/58
[2022-02-01] MEDS: MORPHINE SULFATE INJ 2 MG/ml SYRG IV PRN ×2 (17:15→23:50)
[2022-02-01 21:00] VITALS: BP 123/59
[2022-02-01] MEDS: SODIUM CHLORIDE 0.9% 1,000 ML IV SCH (23:51)
[2022-02-02] MEDS: ALBUTEROL SULF 2.5 MG/0.5ML(0.5%) NEB SOLN NEB SCH ×6 (02:23→22:43)
[2022-02-02] MEDS: IPRATROPIUM BROM 0.5 MG/2.5ML INH SOL NEB SCH ×6 (02:23→22:43)
[2022-02-02 05:00] VITALS: BP 132/87
[2022-02-02] MEDS: NYSTATIN (MOUTH-THROAT) 500,000 UNITS/5 ML SUSP MT SCH ×4 (06:00→22:00)
[2022-02-02] MEDS: ACCU-CHEK COMFORT CURVE STRIP VI SCH ×3 (06:07→18:39)
[2022-02-02] MEDS: InsuLIN REG 1unit/0.01ml Soln (100units/ml) SC SCH ×4 (06:15→18:39)
[2022-02-02] MEDS: CLINDAMYCIN 300MG IV 50 ML IV SCH ×3 (06:24→22:43)
[2022-02-02 07:01] LABS: BUN/Creatinine Ratio 47.7; Calcium 8.7 mg/dL (8.5-10.1); Magnesium 2.1 mg/dL (1.6-2.6); Phosphorus 3.1 mg/dL (2.5-4.90); Potassium 3.6 mmol/L (3.5-5.1)
[2022-02-02 07:05] LABS: Bilirubin, Total 0.6 mg/dL (0.2-1.0); Total Protein 4.8 g/dL (6.4-8.2)
[2022-02-02] MEDS: Glucerna Carbsteady SHAKE Vanilla 8oz PO SCH ×3 (08:00→18:00)
[2022-02-02 09:00] VITALS: BP 128/63
[2022-02-02] MEDS: MORPHINE SULFATE INJ 2 MG/ml SYRG IV PRN ×2 (09:03→17:03)
[2022-02-02] MEDS: SODIUM CHL 0.9% IV SCH (09:52)
[2022-02-02] MEDS: PANTOPRAZOLE 40 MG/10 ML VIAL INJ IV SCH (09:52)
[2022-02-02] MEDS: ACYCLOVIR SOD IV SCH (09:52)
[2022-02-02] MEDS: ATORVASTATIN 20 MG TAB PO SCH (09:53)
[2022-02-02] MEDS: AMIODARONE HCL 200 MG TAB PO SCH (09:53)
[2022-02-02] MEDS: SODIUM CHLORIDE 0.9% 1,000 ML IV SCH (09:53)
[2022-02-02] MEDS: ENOXAPARIN SOD 80 MG/0.8ML SYRINGE SC SCH ×2 (09:53→22:43)
[2022-02-02 13:00] VITALS: BP 130/58
[2022-02-02 17:00] VITALS: BP 138/72
[2022-02-02 22:00] VITALS: BP 124/68
[2022-02-02] MEDS: CLINIMIX PER PHARMACY IV NR (22:43)
[2022-02-03] MEDS: SODIUM CHL 0.9% IV SCH ×3 (00:06→23:53)
[2022-02-03] MEDS: ACYCLOVIR SOD IV SCH ×3 (00:06→23:53)
[2022-02-03] MEDS: ACCU-CHEK COMFORT CURVE STRIP VI SCH ×4 (00:07→17:03)
[2022-02-03] MEDS: MORPHINE SULFATE INJ 2 MG/ml SYRG IV PRN ×3 (00:08→20:10)
[2022-02-03] MEDS: InsuLIN REG 1unit/0.01ml Soln (100units/ml) SC SCH ×4 (00:09→17:02)
[2022-02-03] MEDS: IPRATROPIUM BROM 0.5 MG/2.5ML INH SOL NEB SCH ×6 (02:18→21:45)
[2022-02-03] MEDS: ALBUTEROL SULF 2.5 MG/0.5ML(0.5%) NEB SOLN NEB SCH ×6 (02:18→21:45)
[2022-02-03 05:00] VITALS: BP 112/56
[2022-02-03] MEDS: NYSTATIN (MOUTH-THROAT) 500,000 UNITS/5 ML SUSP MT SCH ×4 (05:29→21:55)
[2022-02-03] MEDS: CLINDAMYCIN 300MG IV 50 ML IV SCH ×2 (05:29→13:42)
[2022-02-03 05:49] LABS: Potassium 3.4 mmol/L (3.5-5.1)
[2022-02-03 05:56] LABS: Albumin 1.9 g/dL (3.4-5.0); BUN/Creatinine Ratio 43.6; Bilirubin, Total 0.7 mg/dL (0.2-1.0); Calcium 8.8 mg/dL (8.5-10.1); Magnesium 1.9 mg/dL (1.6-2.6); Phosphorus 2.5 mg/dL (2.5-4.90); Total Protein 5.4 g/dL (6.4-8.2)
[2022-02-03] MEDS: SODIUM CHLORIDE 0.9% 1,000 ML IV SCH ×2 (06:36→13:15)
[2022-02-03 08:00] VITALS: BP 131/62
[2022-02-03] MEDS: Glucerna Carbsteady SHAKE Vanilla 8oz PO SCH ×3 (08:00→16:51)
[2022-02-03] MEDS: AMIODARONE HCL 200 MG TAB PO SCH (08:39)
[2022-02-03] MEDS: ATORVASTATIN 20 MG TAB PO SCH (08:39)
[2022-02-03] MEDS: PANTOPRAZOLE 40 MG/10 ML VIAL INJ IV SCH (08:55)
[2022-02-03] MEDS: ENOXAPARIN SOD 80 MG/0.8ML SYRINGE SC SCH ×2 (08:55→21:54)
[2022-02-03 12:00] VITALS: BP 129/59
[2022-02-03] MEDS ORDERED: POTASSIUM PHOSPHATE 26.4 MEQ in SODIUM CHL 0.9% 100 ML IV ONE (14:00)
[2022-02-03 16:00] VITALS: BP 122/60
[2022-02-03 20:00] VITALS: BP 110/64
[2022-02-03] MEDS: CLINIMIX PER PHARMACY IV NR (21:55)
[2022-02-03 22:00] VITALS: BP 122/60
[2022-02-04] MEDS: InsuLIN REG 1unit/0.01ml Soln (100units/ml) SC SCH ×5 (00:05→23:11)
[2022-02-04] MEDS: ACCU-CHEK COMFORT CURVE STRIP VI SCH ×5 (00:11→23:11)
[2022-02-04] MEDS: IPRATROPIUM BROM 0.5 MG/2.5ML INH SOL NEB SCH ×6 (02:05→22:04)
[2022-02-04] MEDS: ALBUTEROL SULF 2.5 MG/0.5ML(0.5%) NEB SOLN NEB SCH ×6 (02:05→22:05)
[2022-02-04] MEDS: MORPHINE SULFATE INJ 2 MG/ml SYRG IV PRN ×2 (03:09→10:27)
[2022-02-04 05:00] VITALS: BP 116/64
[2022-02-04] MEDS: NYSTATIN (MOUTH-THROAT) 500,000 UNITS/5 ML SUSP MT SCH ×3 (06:14→17:39)
[2022-02-04 06:28] LABS: Potassium 3.8 mmol/L (3.5-5.1)
[2022-02-04 06:37] LABS: Albumin 1.9 g/dL (3.4-5.0); Bilirubin, Total 0.6 mg/dL (0.2-1.0); Calcium 8.3 mg/dL (8.5-10.1); Magnesium 1.6 mg/dL (1.6-2.6); Phosphorus 3.4 mg/dL (2.5-4.90); Total Protein 4.8 g/dL (6.4-8.2)
[2022-02-04] MEDS: Glucerna Carbsteady SHAKE Vanilla 8oz PO SCH ×3 (08:00→17:39)
[2022-02-04] MEDS: AMIODARONE HCL 200 MG TAB PO SCH (08:50)
[2022-02-04] MEDS: ATORVASTATIN 20 MG TAB PO SCH (08:50)
[2022-02-04 09:00] VITALS: BP 130/64
[2022-02-04] MEDS: PANTOPRAZOLE 40 MG/10 ML VIAL INJ IV SCH (10:25)
[2022-02-04] MEDS: SODIUM CHL 0.9% IV SCH ×2 (10:26→22:21)
[2022-02-04] MEDS: ENOXAPARIN SOD 80 MG/0.8ML SYRINGE SC SCH ×2 (10:26→22:21)
[2022-02-04] MEDS: ACYCLOVIR SOD IV SCH ×2 (10:26→22:21)
[2022-02-04] MEDS ORDERED: LORazepam 2MG/ML-1ML VIAL IV ONE (11:45)
[2022-02-04] MEDS ORDERED: LORazepam 2MG/ML-1ML VIAL IM ONE (11:45)
[2022-02-04 17:00] VITALS: BP 112/46
[2022-02-04 22:00] VITALS: BP 102/50
[2022-02-04] MEDS: CLINIMIX PER PHARMACY IV NR (23:11)
[2022-02-05] MEDS: IPRATROPIUM BROM 0.5 MG/2.5ML INH SOL NEB SCH ×6 (02:30→22:15)
[2022-02-05] MEDS: ALBUTEROL SULF 2.5 MG/0.5ML(0.5%) NEB SOLN NEB SCH ×6 (02:30→22:15)
[2022-02-05 05:00] VITALS: BP 132/47
[2022-02-05 05:47] LABS: BUN/Creatinine Ratio 43.4; Bilirubin, Total 0.7 mg/dL (0.2-1.0); Calcium 8.8 mg/dL (8.5-10.1); Phosphorus 3.1 mg/dL (2.5-4.90); Total Protein 5.8 g/dL (6.4-8.2)
[2022-02-05] MEDS: ACCU-CHEK COMFORT CURVE STRIP VI SCH ×4 (05:59→23:37)
[2022-02-05] MEDS: InsuLIN REG 1unit/0.01ml Soln (100units/ml) SC SCH ×4 (06:06→23:40)
[2022-02-05] MEDS ORDERED: FUROSEMIDE 40 MG/4 ML VIAL IV ONE (07:30)
[2022-02-05] MEDS: Glucerna Carbsteady SHAKE Vanilla 8oz PO SCH ×3 (08:32→17:35)
[2022-02-05 08:44] VITALS: BP 129/66
[2022-02-05] MEDS: ACYCLOVIR SOD IV SCH ×2 (08:50→22:30)
[2022-02-05] MEDS: SODIUM CHL 0.9% IV SCH ×2 (08:50→22:30)
[2022-02-05] MEDS: ENOXAPARIN SOD 80 MG/0.8ML SYRINGE SC SCH ×2 (08:50→22:31)
[2022-02-05] MEDS: PANTOPRAZOLE 40 MG/10 ML VIAL INJ IV SCH (08:50)
[2022-02-05] MEDS: AMIODARONE HCL 200 MG TAB PO SCH (08:50)
[2022-02-05] MEDS: ATORVASTATIN 20 MG TAB PO SCH (08:50)
[2022-02-05] MEDS: MORPHINE SULFATE INJ 2 MG/ml SYRG IV PRN ×2 (11:21→18:13)
[2022-02-05 12:31] VITALS: BP 125/70
[2022-02-05] MEDS ORDERED: TPN PER PHARMACY 0 ML IV SCH (14:00)
[2022-02-05] MEDS: LORazepam 2MG/ML-1ML VIAL IV PRN (14:28)
[2022-02-05 16:37] VITALS: BP 120/69
[2022-02-05 18:25] LABS: Basophils # (auto) 0 10 ^3/uL (0-0.2); Eosinophils # (auto) 0 10 ^3/uL (0-0.8)
[2022-02-05 18:29] LABS: Basophils % (auto) 0.5 % (0.0-2.0); Eosinophils % (auto) 0.3 % (0.0-7.0); Hematocrit 25.6 % (36.0-46.0); Hemoglobin 7.8 g/dL (12.2-16.2); Lymphocytes # (auto) 0.7 10 ^3/uL (0.4-5.4); Lymphocytes % (auto) 12.6 % (10.0-50.0); Mean Corpuscular Hemoglobin 23.2 pg (28.0-32.0); Mean Corpuscular Hgb Conc. 30.3 g/dL (32.0-36.0); Mean Corpuscular Volume 76.4 fL (80.0-100.0); Monocytes # (auto) 0.4 10 ^3/uL (0-1.3); Monocytes % (auto) 7.2 % (0.0-12.0); Neutrophils # (auto) 4.6 10 ^3/uL (1.6-8.6); Neutrophils % (auto) 79.4 % (37.0-80.0); Nucleated Red Blood Cells % 2.2 %; Red Blood Cells 3.35 10^6/uL (4.0-5.20); White Blood Cell 5.8 10^3/uL (4.4-10.8)
[2022-02-05 18:33] LABS: Red Cell Distribution Width 21.8 % (11.8-14.3)
[2022-02-05] MEDS ORDERED: PPN PER PHARMACY IV NR ×9 (20:00)
[2022-02-05 20:04] LABS: INR 1.48 (0.9-1.15); Partial Thromboplastin Time 32.5 sec (24.6-33.4)
[2022-02-06] MEDS: MORPHINE SULFATE INJ 2 MG/ml SYRG IV PRN ×3 (02:04→21:57)
[2022-02-06] MEDS: IPRATROPIUM BROM 0.5 MG/2.5ML INH SOL NEB SCH ×5 (02:18→19:28)
[2022-02-06] MEDS: ALBUTEROL SULF 2.5 MG/0.5ML(0.5%) NEB SOLN NEB SCH ×5 (02:18→19:28)
[2022-02-06 05:28] VITALS: BP 108/49
[2022-02-06] MEDS: ACCU-CHEK COMFORT CURVE STRIP VI SCH ×3 (06:13→16:58)
[2022-02-06] MEDS: InsuLIN REG 1unit/0.01ml Soln (100units/ml) SC SCH ×3 (06:15→16:59)
[2022-02-06 06:28] LABS: Basophils # (auto) 0 10 ^3/uL (0-0.2); Eosinophils # (auto) 0 10 ^3/uL (0-0.8); Lymphocytes # (auto) 0.9 10 ^3/uL (0.4-5.4); Monocytes # (auto) 0.4 10 ^3/uL (0-1.3); Neutrophils # (auto) 4.7 10 ^3/uL (1.6-8.6); Red Blood Cells 3.18 10^6/uL (4.0-5.20)
[2022-02-06 06:30] LABS: Basophils % (auto) 0.3 % (0.0-2.0); Eosinophils % (auto) 0.8 % (0.0-7.0); Hematocrit 24.3 % (36.0-46.0); Hemoglobin 7.4 g/dL (12.2-16.2); Lymphocytes % (auto) 14.7 % (10.0-50.0); Mean Corpuscular Hemoglobin 23.3 pg (28.0-32.0); Mean Corpuscular Hgb Conc. 30.5 g/dL (32.0-36.0); Mean Corpuscular Volume 76.5 fL (80.0-100.0); Monocytes % (auto) 6.4 % (0.0-12.0); Neutrophils % (auto) 77.8 % (37.0-80.0); Nucleated Red Blood Cells % 1.9 %
[2022-02-06 06:33] LABS: Red Cell Distribution Width 21.8 % (11.8-14.3)
[2022-02-06 06:48] LABS: Calcium 8.4 mg/dL (8.5-10.1); Magnesium 1.9 mg/dL (1.6-2.6); Potassium 3.8 mmol/L (3.5-5.1)
[2022-02-06 06:52] LABS: BUN/Creatinine Ratio 46.1; Bilirubin, Total 0.6 mg/dL (0.2-1.0); Phosphorus 2.8 mg/dL (2.5-4.90); Total Protein 4.9 g/dL (6.4-8.2)
[2022-02-06] MEDS ORDERED: ALBUMIN 25% 100 ML IV ONE (08:00)
[2022-02-06] MEDS ORDERED: FUROSEMIDE 20 MG/2 ML VIAL IV ONE (08:15)
[2022-02-06] MEDS ORDERED: FUROSEMIDE 40 MG/4 ML VIAL IV ONE (09:00)
[2022-02-06] MEDS: ATORVASTATIN 20 MG TAB PO SCH (09:27)
[2022-02-06] MEDS: ENOXAPARIN SOD 80 MG/0.8ML SYRINGE SC SCH ×2 (09:27→22:00)
[2022-02-06] MEDS: PANTOPRAZOLE 40 MG/10 ML VIAL INJ IV SCH (09:27)
[2022-02-06] MEDS: Glucerna Carbsteady SHAKE Vanilla 8oz PO SCH ×3 (09:27→17:00)
[2022-02-06] MEDS: AMIODARONE HCL 200 MG TAB PO SCH (09:27)
[2022-02-06 09:41] VITALS: BP 118/52
[2022-02-06 13:00] VITALS: BP 131/80
[2022-02-06 17:08] VITALS: BP 135/56
[2022-02-06] MEDS ORDERED: PPN PER PHARMACY IV NR ×10 (20:00)
[2022-02-06 22:00] VITALS: BP 124/58
[2022-02-07] MEDS: LORazepam 2MG/ML-1ML VIAL IV PRN ×2 (01:36→23:36)
[2022-02-07 03:32] VITALS: BP 124/58
[2022-02-07] MEDS: MORPHINE SULFATE INJ 2 MG/ml SYRG IV PRN ×2 (04:02→20:29)
[2022-02-07 04:51] VITALS: BP 125/60
[2022-02-07 05:46] LABS: Magnesium 1.8 mg/dL (1.6-2.6); Potassium 3.6 mmol/L (3.5-5.1)
[2022-02-07] MEDS: InsuLIN REG 1unit/0.01ml Soln (100units/ml) SC SCH ×4 (05:47→18:00)
[2022-02-07 05:53] LABS: Albumin 2.3 g/dL (3.4-5.0); BUN/Creatinine Ratio 49.1; Bilirubin, Total 1.2 mg/dL (0.2-1.0); Calcium 8.6 mg/dL (8.5-10.1); Phosphorus 2.8 mg/dL (2.5-4.90); Total Protein 5.1 g/dL (6.4-8.2)
[2022-02-07] MEDS: ACCU-CHEK COMFORT CURVE STRIP VI SCH ×5 (06:00→23:13)
[2022-02-07] MEDS: Glucerna Carbsteady SHAKE Vanilla 8oz PO SCH ×3 (08:00→18:00)
[2022-02-07 09:00] VITALS: BP 161/108
[2022-02-07 09:39] LABS: % Iron Saturation 5.7 % (15-50)
[2022-02-07] MEDS: PANTOPRAZOLE 40 MG/10 ML VIAL INJ IV SCH (09:44)
[2022-02-07] MEDS: ENOXAPARIN SOD 80 MG/0.8ML SYRINGE SC SCH ×2 (09:44→23:06)
[2022-02-07] MEDS ORDERED: LORazepam 2MG/ML-1ML VIAL IV ONE (09:45)
[2022-02-07] MEDS ORDERED: FUROSEMIDE 20 MG/2 ML VIAL IV SCH (10:00)
[2022-02-07] MEDS ORDERED: ALBUMIN 25% 100 ML IV ONE (10:00)
[2022-02-07] MEDS: AMIODARONE HCL 200 MG TAB PO SCH (10:00)
[2022-02-07] MEDS: ATORVASTATIN 20 MG TAB PO SCH (10:00)
[2022-02-07] MEDS: ALBUTEROL SULF 2.5 MG/0.5ML(0.5%) NEB SOLN NEB SCH ×4 (11:13→19:15)
[2022-02-07] MEDS: IPRATROPIUM BROM 0.5 MG/2.5ML INH SOL NEB SCH ×4 (11:13→19:15)
[2022-02-07] MEDS ORDERED: SODIUM FERR GLUC 62.5MG/5ML 125 MG in SODIUM CHL 0.9% 100 ML IV SCH (12:00)
[2022-02-07] MEDS: IRON SUCROSE COMPLEX 200 MG in SODIUM CHL 0.9% 100 ML IV SCH (12:39)
[2022-02-07 13:00] VITALS: BP 116/46
[2022-02-07] MEDS: D5W 5% 1,000 ML IV SCH ×2 (16:45→23:37)
[2022-02-07 17:00] VITALS: BP 102/81
[2022-02-07] MEDS ORDERED: PPN PER PHARMACY IV NR ×9 (20:00)
[2022-02-07 22:00] VITALS: BP 111/61
[2022-02-08] VITALS (50 sets, daily range): BP systolic 90–138; BP diastolic 43–74
[2022-02-08] MEDS: IPRATROPIUM BROM 0.5 MG/2.5ML INH SOL NEB SCH ×4 (00:05→18:03)
[2022-02-08] MEDS: ALBUTEROL SULF 2.5 MG/0.5ML(0.5%) NEB SOLN NEB SCH ×4 (00:05→18:02)
[2022-02-08] MEDS: InsuLIN REG 1unit/0.01ml Soln (100units/ml) SC SCH ×4 (00:39→18:00)
[2022-02-08] MEDS: MORPHINE SULFATE INJ 2 MG/ml SYRG IV PRN ×2 (02:48→09:56)
[2022-02-08] MEDS: ACCU-CHEK COMFORT CURVE STRIP VI SCH ×3 (06:10→17:58)
[2022-02-08 07:12] LABS: Basophils # (auto) 0 10 ^3/uL (0-0.2); Basophils % (auto) 0.4 % (0.0-2.0); Eosinophils # (auto) 0 10 ^3/uL (0-0.8); Hemoglobin 7.2 g/dL (12.2-16.2); Lymphocytes # (auto) 0.7 10 ^3/uL (0.4-5.4)
[2022-02-08 07:16] LABS: Eosinophils % (auto) 0.7 % (0.0-7.0); Hematocrit 23.2 % (36.0-46.0); Lymphocytes % (auto) 11.2 % (10.0-50.0); Mean Corpuscular Hemoglobin 23.5 pg (28.0-32.0); Mean Corpuscular Hgb Conc. 30.9 g/dL (32.0-36.0); Monocytes # (auto) 0.7 10 ^3/uL (0-1.3); Monocytes % (auto) 10.6 % (0.0-12.0); Neutrophils # (auto) 4.8 10 ^3/uL (1.6-8.6); Neutrophils % (auto) 77.1 % (37.0-80.0); Red Blood Cells 3.05 10^6/uL (4.0-5.20); White Blood Cell 6.3 10^3/uL (4.4-10.8)
[2022-02-08 07:17] LABS: Albumin 2.7 g/dL (3.4-5.0); Calcium 8.6 mg/dL (8.5-10.1); Magnesium 2.4 mg/dL (1.6-2.6); Potassium 3.8 mmol/L (3.5-5.1)
[2022-02-08 07:22] LABS: Bilirubin, Total 1.2 mg/dL (0.2-1.0); Phosphorus 3.6 mg/dL (2.5-4.90); Total Protein 5.3 g/dL (6.4-8.2)
[2022-02-08 07:32] LABS: Nucleated Red Blood Cells % 6.4 %; Red Cell Distribution Width 21.5 % (11.8-14.3)
[2022-02-08] MEDS: Glucerna Carbsteady SHAKE Vanilla 8oz PO SCH ×3 (07:40→17:28)
[2022-02-08] MEDS: ATORVASTATIN 20 MG TAB PO SCH (07:41)
[2022-02-08] MEDS: AMIODARONE HCL 200 MG TAB PO SCH (07:41)
[2022-02-08] MEDS: LORazepam 2MG/ML-1ML VIAL IV PRN (09:54)
[2022-02-08] MEDS: ENOXAPARIN SOD 80 MG/0.8ML SYRINGE SC SCH (09:56)
[2022-02-08] MEDS: PANTOPRAZOLE 40 MG/10 ML VIAL INJ IV SCH (09:56)
[2022-02-08] MEDS ORDERED: MIDAZOLAM DRIP 50 mg/50mL 50 ML IV ONE (11:04)
[2022-02-08] MEDS ORDERED: ETOMIDATE (2MG/ML) 20ML VIAL IV ONE ×2 (11:05→12:30)
[2022-02-08] MEDS ORDERED: ROCURONIUM 10MG/ML 10ML VIAL IV ONE ×2 (11:05→12:30)
[2022-02-08] MEDS ORDERED: PROPOFOL 100 ML IV ONE (11:07)
[2022-02-08] MEDS: MIDAZOLAM DRIP 50 mg/50mL 50 ML IV SCH (11:21)
[2022-02-08] MEDS: PROPOFOL 100 ML IV SCH (12:30)
[2022-02-08] MEDS: NOREPINEPHRINE 8 MG/250ML KIT 250 ML IV SCH (12:30)
[2022-02-08] MEDS: fentaNYL Drip 2500mCg/250mlNS 250 ML IV SCH (12:30)
[2022-02-08] MEDS: IRON SUCROSE COMPLEX 200 MG in SODIUM CHL 0.9% 100 ML IV SCH (13:59)
[2022-02-08] MEDS: FUROSEMIDE 20 MG/2 ML VIAL IV SCH (17:50)
[2022-02-08] MEDS ORDERED: PPN PER PHARMACY IV NR ×9 (20:00)
[2022-02-09] VITALS (104 sets, daily range): BP systolic 83–125; BP diastolic 40–71
[2022-02-09] MEDS: InsuLIN REG 1unit/0.01ml Soln (100units/ml) SC SCH ×4 (00:07→18:04)
[2022-02-09] MEDS: ACCU-CHEK COMFORT CURVE STRIP VI SCH ×5 (00:07→23:38)
[2022-02-09] MEDS: ALBUTEROL SULF 2.5 MG/0.5ML(0.5%) NEB SOLN NEB SCH ×4 (00:09→18:32)
[2022-02-09] MEDS: IPRATROPIUM BROM 0.5 MG/2.5ML INH SOL NEB SCH ×4 (00:09→18:32)
[2022-02-09] MEDS: MIDAZOLAM DRIP 50 mg/50mL 50 ML IV SCH ×4 (00:47→19:08)
[2022-02-09] MEDS: D5W 5% 1,000 ML IV SCH (02:43)
[2022-02-09] MEDS: FUROSEMIDE 20 MG/2 ML VIAL IV SCH ×2 (05:54→18:09)
[2022-02-09 07:11] LABS: Basophils # (auto) 0 10 ^3/uL (0-0.2); Eosinophils # (auto) 0.1 10 ^3/uL (0-0.8); Lymphocytes # (auto) 0.3 10 ^3/uL (0.4-5.4); Monocytes # (auto) 0.3 10 ^3/uL (0-1.3); White Blood Cell 4.4 10^3/uL (4.4-10.8)
[2022-02-09 07:14] LABS: Basophils % (auto) 0.3 % (0.0-2.0); Eosinophils % (auto) 2.3 % (0.0-7.0); Hematocrit 21.1 % (36.0-46.0); Lymphocytes % (auto) 6.4 % (10.0-50.0); Mean Corpuscular Hemoglobin 23.2 pg (28.0-32.0); Mean Corpuscular Hgb Conc. 30.5 g/dL (32.0-36.0); Monocytes % (auto) 6.9 % (0.0-12.0); Neutrophils # (auto) 3.7 10 ^3/uL (1.6-8.6); Neutrophils % (auto) 84.1 % (37.0-80.0); Red Blood Cells 2.78 10^6/uL (4.0-5.20)
[2022-02-09 07:27] LABS: Potassium 3.3 mmol/L (3.5-5.1)
[2022-02-09 07:58] LABS: Hemoglobin 6.4 g/dL (12.2-16.2); Nucleated Red Blood Cells % 6.1 %; Red Cell Distribution Width 21.6 % (11.8-14.3)
[2022-02-09] MEDS: Glucerna Carbsteady SHAKE Vanilla 8oz PO SCH ×3 (08:00→18:00)
[2022-02-09] MEDS: AMIODARONE HCL 200 MG TAB PO SCH (08:10)
[2022-02-09] MEDS: ATORVASTATIN 20 MG TAB PO SCH (08:10)
[2022-02-09 08:12] LABS: Albumin 2.3 g/dL (3.4-5.0); BUN/Creatinine Ratio 50.4; Bilirubin, Total 0.8 mg/dL (0.2-1.0); Magnesium 2.6 mg/dL (1.6-2.6); Phosphorus 2.2 mg/dL (2.5-4.90); Total Protein 4.7 g/dL (6.4-8.2)
[2022-02-09] MEDS: ENOXAPARIN SOD 100 MG/1 ML SYRINGE SC SCH (09:28)
[2022-02-09] MEDS: PANTOPRAZOLE 40 MG/10 ML VIAL INJ IV SCH ×2 (09:38→22:00)
[2022-02-09] MEDS ORDERED: POTASSIUM PHOSPHATE 44 MEQ in D5W 5% 250 ML IV ONE (09:45)
[2022-02-09] MEDS: IRON SUCROSE COMPLEX 200 MG in SODIUM CHL 0.9% 100 ML IV SCH (12:00)
[2022-02-09] MEDS: fentaNYL Drip 2500mCg/250mlNS 250 ML IV SCH (12:30)
[2022-02-09] MEDS: PROPOFOL 100 ML IV SCH ×2 (12:30→14:56)
[2022-02-09] MEDS: NOREPINEPHRINE 8 MG/250ML KIT 250 ML IV SCH ×2 (12:30→14:45)
[2022-02-09] MEDS ORDERED: FLUTICASONE PROP NASAL SPR 0.05 % (50MCG) 16GM EACHNOSTRI PRN (12:45)
[2022-02-09 16:12] LABS: Hematocrit 25.1 % (36.0-46.0); Hemoglobin 7.7 g/dL (12.2-16.2)
[2022-02-09] MEDS ORDERED: ALBUTEROL MEDNEB 2.5 mg/3ml NEB ONE ×2 (18:09→23:55)
[2022-02-09] MEDS ORDERED: TPN PER PHARMACY IV NR ×9 (20:00)
[2022-02-10] VITALS (89 sets, daily range): BP systolic 92–128; BP diastolic 42–61
[2022-02-10] MEDS: IPRATROPIUM BROM 0.5 MG/2.5ML INH SOL NEB SCH ×4 (00:13→18:33)
[2022-02-10] MEDS: ALBUTEROL SULF 2.5 MG/0.5ML(0.5%) NEB SOLN NEB SCH ×4 (00:14→18:33)
[2022-02-10 05:40] LABS: Hemoglobin 7.9 g/dL (12.2-16.2); Mean Corpuscular Hemoglobin 24.4 pg (28.0-32.0); Mean Corpuscular Hgb Conc. 31.6 g/dL (32.0-36.0); Mean Corpuscular Volume 77.4 fL (80.0-100.0); Red Blood Cells 3.23 10^6/uL (4.0-5.20); Red Cell Distribution Width 21.3 % (11.8-14.3)
[2022-02-10] MEDS ORDERED: ALBUTEROL MEDNEB 2.5 mg/3ml NEB ONE ×3 (05:45→18:02)
[2022-02-10 05:49] LABS: Basophils % (manual) 0 (0.0-2.0); Blast Cells 0; Metamyelocytes % 0; Myelocytes % 0; Promyelocytes % 0; Reactive Lymphocytes 0
[2022-02-10 05:56] LABS: Albumin 2.4 g/dL (3.4-5.0); Magnesium 2.1 mg/dL (1.6-2.6); Potassium 4.1 mmol/L (3.5-5.1)
[2022-02-10] MEDS: FUROSEMIDE 20 MG/2 ML VIAL IV SCH ×2 (05:56→18:00)
[2022-02-10 05:59] LABS: BUN/Creatinine Ratio 47.4; Bilirubin, Total 0.5 mg/dL (0.2-1.0); Phosphorus 3.5 mg/dL (2.5-4.90); Total Protein 5.4 g/dL (6.4-8.2)
[2022-02-10] MEDS: InsuLIN REG 1unit/0.01ml Soln (100units/ml) SC SCH ×4 (07:00→18:00)
[2022-02-10] MEDS: ACCU-CHEK COMFORT CURVE STRIP VI SCH ×3 (07:00→18:00)
[2022-02-10 07:31] LABS: Band Neutrophils % (manual) 6; Eosinophils % (manual) 2 (0-7); Lymphocytes % (manual) 19 (10.0-50.0); Monocytes % (manual) 2 (0-12)
[2022-02-10] MEDS: Glucerna Carbsteady SHAKE Vanilla 8oz PO SCH ×3 (08:00→18:00)
[2022-02-10] MEDS: PANTOPRAZOLE 40 MG/10 ML VIAL INJ IV SCH ×2 (09:45→22:00)
[2022-02-10] MEDS: MIDAZOLAM DRIP 50 mg/50mL 50 ML IV SCH ×2 (09:45→14:29)
[2022-02-10] MEDS: ATORVASTATIN 20 MG TAB PO SCH (10:00)
[2022-02-10] MEDS: AMIODARONE HCL 200 MG TAB PO SCH (10:00)
[2022-02-10] MEDS: ENOXAPARIN SOD 100 MG/1 ML SYRINGE SC SCH (10:00)
[2022-02-10] MEDS: IRON SUCROSE COMPLEX 200 MG in SODIUM CHL 0.9% 100 ML IV SCH (12:00)
[2022-02-10] MEDS: fentaNYL Drip 2500mCg/250mlNS 250 ML IV SCH (12:30)
[2022-02-10] MEDS: PROPOFOL 100 ML IV SCH (14:24)
[2022-02-10] MEDS: D5W 5% 1,000 ML IV SCH (16:45)
[2022-02-10] MEDS: TPN PER PHARMACY IV NR ×9 (20:00)
[2022-02-11] VITALS (99 sets, daily range): BP systolic 85–107; BP diastolic 41–57
[2022-02-11] MEDS: ALBUTEROL SULF 2.5 MG/0.5ML(0.5%) NEB SOLN NEB SCH ×4 (00:04→18:15)
[2022-02-11] MEDS: IPRATROPIUM BROM 0.5 MG/2.5ML INH SOL NEB SCH ×4 (00:04→18:15)
[2022-02-11] MEDS: InsuLIN REG 1unit/0.01ml Soln (100units/ml) SC SCH ×4 (00:30→17:34)
[2022-02-11] MEDS ORDERED: ALBUTEROL MEDNEB 2.5 mg/3ml NEB ONE ×2 (05:38)
[2022-02-11] MEDS: ACCU-CHEK COMFORT CURVE STRIP VI SCH ×4 (06:00→17:34)
[2022-02-11] MEDS: FUROSEMIDE 20 MG/2 ML VIAL IV SCH ×2 (06:30→17:33)
[2022-02-11 07:33] LABS: Albumin 2.1 g/dL (3.4-5.0); Calcium 7.7 mg/dL (8.5-10.1); Magnesium 2.2 mg/dL (1.6-2.6); Potassium 4.4 mmol/L (3.5-5.1)
[2022-02-11 07:36] LABS: Bilirubin, Total 0.4 mg/dL (0.2-1.0); Phosphorus 3.7 mg/dL (2.5-4.90); Total Protein 5.1 g/dL (6.4-8.2)
[2022-02-11] MEDS: Glucerna Carbsteady SHAKE Vanilla 8oz PO SCH ×3 (09:32→17:34)
[2022-02-11] MEDS: ATORVASTATIN 20 MG TAB PO SCH (10:00)
[2022-02-11] MEDS: AMIODARONE HCL 200 MG TAB PO SCH (10:00)
[2022-02-11] MEDS: PANTOPRAZOLE 40 MG/10 ML VIAL INJ IV SCH ×2 (10:01→21:00)
[2022-02-11] MEDS: ENOXAPARIN SOD 100 MG/1 ML SYRINGE SC SCH (10:01)
[2022-02-11 10:26] LABS: Hemoglobin 7.5 g/dL (12.2-16.2); Mean Corpuscular Hemoglobin 23.8 pg (28.0-32.0); Red Blood Cells 3.15 10^6/uL (4.0-5.20)
[2022-02-11 10:28] LABS: Hematocrit 24.9 % (36.0-46.0); Mean Corpuscular Hgb Conc. 30.1 g/dL (32.0-36.0); Mean Corpuscular Volume 78.9 fL (80.0-100.0); White Blood Cell 4.5 10^3/uL (4.4-10.8)
[2022-02-11 10:34] LABS: Red Cell Distribution Width 21.9 % (11.8-14.3)
[2022-02-11 10:36] LABS: Basophils % (manual) 0 (0.0-2.0); Blast Cells 0; Metamyelocytes % 0; Myelocytes % 0; Promyelocytes % 0; Reactive Lymphocytes 0
[2022-02-11] MEDS: fentaNYL Drip 2500mCg/250mlNS 250 ML IV SCH (12:30)
[2022-02-11] MEDS: NOREPINEPHRINE 8 MG/250ML KIT 250 ML IV SCH (12:30)
[2022-02-11] MEDS: IRON SUCROSE COMPLEX 200 MG in SODIUM CHL 0.9% 100 ML IV SCH (12:31)
[2022-02-11 13:27] LABS: INR 1.1 (0.9-1.15)
[2022-02-11 14:29] LABS: Band Neutrophils % (manual) 16; Eosinophils % (manual) 1 (0-7); Lymphocytes % (manual) 19 (10.0-50.0); Monocytes % (manual) 13 (0-12)
[2022-02-11] MEDS: D5W 5% 1,000 ML IV SCH (16:45)
[2022-02-11] MEDS: TPN PER PHARMACY IV NR ×9 (19:59)
[2022-02-11] MEDS ORDERED: TPN PER PHARMACY IV SCH ×9 (20:00)
[2022-02-12] VITALS (99 sets, daily range): BP systolic 88–126; BP diastolic 37–68
[2022-02-12] MEDS: ALBUTEROL SULF 2.5 MG/0.5ML(0.5%) NEB SOLN NEB SCH ×4 (00:05→18:32)
[2022-02-12] MEDS: IPRATROPIUM BROM 0.5 MG/2.5ML INH SOL NEB SCH ×4 (00:05→18:32)
[2022-02-12 05:52] LABS: Albumin 2.1 g/dL (3.4-5.0); Calcium 8.2 mg/dL (8.5-10.1); Magnesium 2.3 mg/dL (1.6-2.6); Potassium 5.1 mmol/L (3.5-5.1)
[2022-02-12 05:54] LABS: BUN/Creatinine Ratio 53.7
[2022-02-12 05:57] LABS: Bilirubin, Total 0.5 mg/dL (0.2-1.0); Phosphorus 3.4 mg/dL (2.5-4.90); Total Protein 5.4 g/dL (6.4-8.2)
[2022-02-12] MEDS: ACCU-CHEK COMFORT CURVE STRIP VI SCH ×4 (06:00→17:54)
[2022-02-12] MEDS: InsuLIN REG 1unit/0.01ml Soln (100units/ml) SC SCH ×4 (06:00→17:54)
[2022-02-12] MEDS: FUROSEMIDE 20 MG/2 ML VIAL IV SCH ×2 (06:30→18:05)
[2022-02-12] MEDS: Glucerna Carbsteady SHAKE Vanilla 8oz PO SCH ×3 (08:00→17:54)
[2022-02-12] MEDS ORDERED: ceFAZolin 1GM/50ML 50 ML IV ONE (08:52)
[2022-02-12] MEDS: PROPOFOL 100 ML IV SCH (08:59)
[2022-02-12] MEDS: ENOXAPARIN SOD 40 MG/0.4 ML SYRINGE SC SCH (09:21)
[2022-02-12] MEDS: AMIODARONE HCL 200 MG TAB PO SCH (09:22)
[2022-02-12] MEDS: ATORVASTATIN 20 MG TAB PO SCH (09:22)
[2022-02-12] MEDS: PANTOPRAZOLE 40 MG/10 ML VIAL INJ IV SCH ×2 (11:22→21:24)
[2022-02-12] MEDS: MIDAZOLAM DRIP 50 mg/50mL 50 ML IV SCH (12:30)
[2022-02-12] MEDS: fentaNYL Drip 2500mCg/250mlNS 250 ML IV SCH (12:30)
[2022-02-12] MEDS: IRON SUCROSE COMPLEX 200 MG in SODIUM CHL 0.9% 100 ML IV SCH (12:42)
[2022-02-12] MEDS: NOREPINEPHRINE 8 MG/250ML KIT 250 ML IV SCH (16:01)
[2022-02-12] MEDS ORDERED: TPN PER PHARMACY IV NR ×8 (20:00)
[2022-02-13] VITALS (107 sets, daily range): BP systolic 94–136; BP diastolic 42–62
[2022-02-13] MEDS: InsuLIN REG 1unit/0.01ml Soln (100units/ml) SC SCH ×5 (00:10→23:39)
[2022-02-13] MEDS: ACCU-CHEK COMFORT CURVE STRIP VI SCH ×5 (00:11→23:38)
[2022-02-13] MEDS: ALBUTEROL SULF 2.5 MG/0.5ML(0.5%) NEB SOLN NEB SCH ×4 (00:15→18:25)
[2022-02-13] MEDS: IPRATROPIUM BROM 0.5 MG/2.5ML INH SOL NEB SCH ×4 (00:15→18:25)
[2022-02-13] MEDS: PROPOFOL 100 ML IV SCH (01:02)
[2022-02-13 05:48] LABS: Calcium 8.4 mg/dL (8.5-10.1); Magnesium 2.3 mg/dL (1.6-2.6); Potassium 3.9 mmol/L (3.5-5.1)
[2022-02-13 05:50] LABS: BUN/Creatinine Ratio 59.5
[2022-02-13 05:53] LABS: Bilirubin, Total 0.4 mg/dL (0.2-1.0); Phosphorus 3.3 mg/dL (2.5-4.90); Total Protein 5.3 g/dL (6.4-8.2)
[2022-02-13] MEDS: FUROSEMIDE 20 MG/2 ML VIAL IV SCH (06:00)
[2022-02-13] MEDS: Glucerna Carbsteady SHAKE Vanilla 8oz PO SCH ×3 (08:00→17:38)
[2022-02-13] MEDS: AMIODARONE HCL 200 MG TAB PO SCH (09:37)
[2022-02-13] MEDS: ATORVASTATIN 20 MG TAB PO SCH (09:38)
[2022-02-13] MEDS: PANTOPRAZOLE 40 MG/10 ML VIAL INJ IV SCH ×2 (09:41→23:38)
[2022-02-13] MEDS: ENOXAPARIN SOD 40 MG/0.4 ML SYRINGE SC SCH (09:41)
[2022-02-13] MEDS: IRON SUCROSE COMPLEX 200 MG in SODIUM CHL 0.9% 100 ML IV SCH (12:15)
[2022-02-13] MEDS: fentaNYL Drip 2500mCg/250mlNS 250 ML IV SCH (12:16)
[2022-02-13] MEDS: MIDAZOLAM DRIP 50 mg/50mL 50 ML IV SCH (12:16)
[2022-02-13] MEDS: NOREPINEPHRINE 8 MG/250ML KIT 250 ML IV SCH (12:16)
[2022-02-13] MEDS: FUROSEMIDE 40 MG/4 ML VIAL IV SCH (17:39)
[2022-02-13] MEDS ORDERED: TPN PER PHARMACY IV NR ×9 (20:00)
[2022-02-14] VITALS (105 sets, daily range): BP systolic 100–152; BP diastolic 37–84
[2022-02-14] MEDS: IPRATROPIUM BROM 0.5 MG/2.5ML INH SOL NEB SCH ×4 (00:06→18:44)
[2022-02-14] MEDS: ALBUTEROL SULF 2.5 MG/0.5ML(0.5%) NEB SOLN NEB SCH ×4 (00:06→18:44)
[2022-02-14] MEDS: InsuLIN REG 1unit/0.01ml Soln (100units/ml) SC SCH ×3 (05:16→17:48)
[2022-02-14] MEDS: ACCU-CHEK COMFORT CURVE STRIP VI SCH ×3 (05:16→17:49)
[2022-02-14] MEDS: FUROSEMIDE 40 MG/4 ML VIAL IV SCH ×2 (05:16→17:40)
[2022-02-14 06:47] LABS: Hemoglobin 8.4 g/dL (12.2-16.2)
[2022-02-14 06:49] LABS: Hematocrit 27.4 % (36.0-46.0); Mean Corpuscular Hemoglobin 24.1 pg (28.0-32.0); Mean Corpuscular Hgb Conc. 30.7 g/dL (32.0-36.0); Mean Corpuscular Volume 78.4 fL (80.0-100.0); Red Blood Cells 3.49 10^6/uL (4.0-5.20); White Blood Cell 5.2 10^3/uL (4.4-10.8)
[2022-02-14 06:53] LABS: Red Cell Distribution Width 24.4 % (11.8-14.3)
[2022-02-14 06:55] LABS: Basophils % (manual) 0 (0.0-2.0); Blast Cells 0; Eosinophils % (manual) 0 (0-7); Promyelocytes % 0; Reactive Lymphocytes 0
[2022-02-14 07:03] LABS: Potassium 4.1 mmol/L (3.5-5.1)
[2022-02-14 07:11] LABS: Albumin 2.1 g/dL (3.4-5.0); BUN/Creatinine Ratio 73.1; Bilirubin, Total 0.6 mg/dL (0.2-1.0); Calcium 8.3 mg/dL (8.5-10.1); Magnesium 2.8 mg/dL (1.6-2.6); Phosphorus 3.2 mg/dL (2.5-4.90); Total Protein 5.2 g/dL (6.4-8.2)
[2022-02-14 07:48] LABS: Band Neutrophils % (manual) 4; Lymphocytes % (manual) 30 (10.0-50.0); Metamyelocytes % 1; Monocytes % (manual) 12 (0-12); Myelocytes % 3
[2022-02-14] MEDS: Glucerna Carbsteady SHAKE Vanilla 8oz PO SCH ×3 (08:00→17:38)
[2022-02-14] MEDS: PANTOPRAZOLE 40 MG/10 ML VIAL INJ IV SCH ×2 (09:54→22:00)
[2022-02-14] MEDS: AMIODARONE HCL 200 MG TAB PEG SCH (09:55)
[2022-02-14] MEDS: ENOXAPARIN SOD 40 MG/0.4 ML SYRINGE SC SCH (09:55)
[2022-02-14] MEDS ORDERED: ATORVASTATIN 20 MG TAB PEG SCH (10:00)
[2022-02-14] MEDS: fentaNYL Drip 2500mCg/250mlNS 250 ML IV SCH (11:50)
[2022-02-14] MEDS: PROPOFOL 100 ML IV SCH (11:51)
[2022-02-14] MEDS: MIDAZOLAM DRIP 50 mg/50mL 50 ML IV SCH (11:51)
[2022-02-14] MEDS: NOREPINEPHRINE 8 MG/250ML KIT 250 ML IV SCH (11:51)
[2022-02-14] MEDS: IRON SUCROSE COMPLEX 200 MG in SODIUM CHL 0.9% 100 ML IV SCH (12:19)
[2022-02-14] MEDS ORDERED: TPN PER PHARMACY IV NR ×9 (20:00)
[2022-02-15] VITALS (55 sets, daily range): BP systolic 105–157; BP diastolic 49–72
[2022-02-15] MEDS: ALBUTEROL SULF 2.5 MG/0.5ML(0.5%) NEB SOLN NEB SCH ×4 (00:25→18:37)
[2022-02-15] MEDS: IPRATROPIUM BROM 0.5 MG/2.5ML INH SOL NEB SCH ×4 (00:25→18:37)
[2022-02-15] MEDS: ACCU-CHEK COMFORT CURVE STRIP VI SCH ×4 (00:55→17:29)
[2022-02-15] MEDS: InsuLIN REG 1unit/0.01ml Soln (100units/ml) SC SCH ×4 (00:57→17:30)
[2022-02-15] MEDS: FUROSEMIDE 40 MG/4 ML VIAL IV SCH ×2 (06:40→17:30)
[2022-02-15] MEDS: ACETAMINOPHEN 325 MG TAB PO PRN ×2 (06:46→17:06)
[2022-02-15] MEDS: Glucerna Carbsteady SHAKE Vanilla 8oz PO SCH ×3 (08:00→17:29)
[2022-02-15] MEDS: ENOXAPARIN SOD 40 MG/0.4 ML SYRINGE SC SCH (09:58)
[2022-02-15] MEDS: PANTOPRAZOLE 40 MG/10 ML VIAL INJ IV SCH ×2 (09:58→22:13)
[2022-02-15] MEDS: AMIODARONE HCL 200 MG TAB PEG SCH (10:00)
[2022-02-15] MEDS: fentaNYL Drip 2500mCg/250mlNS 250 ML IV SCH (11:36)
[2022-02-15] MEDS: MIDAZOLAM DRIP 50 mg/50mL 50 ML IV SCH (12:30)
[2022-02-15] MEDS: PROPOFOL 100 ML IV SCH (12:30)
[2022-02-15] MEDS: NOREPINEPHRINE 8 MG/250ML KIT 250 ML IV SCH (12:30)
[2022-02-15] MEDS: IRON SUCROSE COMPLEX 200 MG in SODIUM CHL 0.9% 100 ML IV SCH (12:42)
[2022-02-15 13:56] LABS: Albumin 1.8 g/dL (3.4-5.0); Calcium 8.4 mg/dL (8.5-10.1); Magnesium 2.5 mg/dL (1.6-2.6); Potassium 4.3 mmol/L (3.5-5.1)
[2022-02-15 14:01] LABS: BUN/Creatinine Ratio 83.7; Bilirubin, Total 0.6 mg/dL (0.2-1.0); Total Protein 5.5 g/dL (6.4-8.2)
[2022-02-15] MEDS ORDERED: TPN PER PHARMACY IV NR ×7 (20:00)
[2022-02-15] MEDS: ATORVASTATIN 20 MG TAB PEG SCH (22:14)
[2022-02-16] VITALS (37 sets, daily range): BP systolic 104–151; BP diastolic 49–103
[2022-02-16] MEDS: ALBUTEROL SULF 2.5 MG/0.5ML(0.5%) NEB SOLN NEB SCH ×4 (00:25→18:23)
[2022-02-16] MEDS: IPRATROPIUM BROM 0.5 MG/2.5ML INH SOL NEB SCH ×4 (00:25→18:23)
[2022-02-16] MEDS: ACCU-CHEK COMFORT CURVE STRIP VI SCH ×4 (01:03→17:45)
[2022-02-16] MEDS: InsuLIN REG 1unit/0.01ml Soln (100units/ml) SC SCH ×4 (01:04→17:44)
[2022-02-16] MEDS: ACETAMINOPHEN 325 MG TAB PO PRN ×2 (04:13→18:19)
[2022-02-16] MEDS: FUROSEMIDE 40 MG/4 ML VIAL IV SCH ×2 (06:08→17:33)
[2022-02-16] MEDS: Glucerna Carbsteady SHAKE Vanilla 8oz PO SCH ×3 (08:00→17:33)
[2022-02-16] MEDS: PANTOPRAZOLE 40 MG/10 ML VIAL INJ IV SCH ×2 (09:40→22:15)
[2022-02-16] MEDS: ENOXAPARIN SOD 40 MG/0.4 ML SYRINGE SC SCH (09:40)
[2022-02-16] MEDS: AMIODARONE HCL 200 MG TAB PEG SCH (09:40)
[2022-02-16] MEDS ORDERED: Glucerna 1.2 Cal 1Liter BOTTLE GT SCH (10:00)
[2022-02-16 10:07] LABS: Albumin 1.7 g/dL (3.4-5.0); Calcium 8.4 mg/dL (8.5-10.1); Magnesium 2.2 mg/dL (1.6-2.6); Potassium 3.5 mmol/L (3.5-5.1)
[2022-02-16 10:11] LABS: BUN/Creatinine Ratio 89.8; Bilirubin, Total 0.5 mg/dL (0.2-1.0); Phosphorus 2.4 mg/dL (2.5-4.90); Total Protein 5.8 g/dL (6.4-8.2)
[2022-02-16] MEDS: NOREPINEPHRINE 8 MG/250ML KIT 250 ML IV SCH (12:30)
[2022-02-16] MEDS: fentaNYL Drip 2500mCg/250mlNS 250 ML IV SCH (12:30)
[2022-02-16] MEDS: PROPOFOL 100 ML IV SCH (12:30)
[2022-02-16] MEDS: MIDAZOLAM DRIP 50 mg/50mL 50 ML IV SCH (12:30)
[2022-02-16 13:12] LABS: Hematocrit 27.7 % (36.0-46.0); Hemoglobin 8.6 g/dL (12.2-16.2); Mean Corpuscular Hemoglobin 24.7 pg (28.0-32.0)
[2022-02-16 13:13] LABS: Mean Corpuscular Hgb Conc. 31.1 g/dL (32.0-36.0); Mean Corpuscular Volume 79.5 fL (80.0-100.0); Red Blood Cells 3.49 10^6/uL (4.0-5.20); White Blood Cell 7.3 10^3/uL (4.4-10.8)
[2022-02-16 13:14] LABS: Red Cell Distribution Width 26.6 % (11.8-14.3)
[2022-02-16 13:17] LABS: Basophils % (manual) 0 (0.0-2.0); Blast Cells 0; Promyelocytes % 0; Reactive Lymphocytes 0
[2022-02-16 19:05] LABS: Band Neutrophils % (manual) 12; Eosinophils % (manual) 1 (0-7); Lymphocytes % (manual) 14 (10.0-50.0); Metamyelocytes % 1; Monocytes % (manual) 18 (0-12); Myelocytes % 3
[2022-02-16] MEDS ORDERED: TPN PER PHARMACY IV NR ×8 (20:00)
[2022-02-16] MEDS: ATORVASTATIN 20 MG TAB PEG SCH (22:16)
[2022-02-17] VITALS (32 sets, daily range): BP systolic 116–150; BP diastolic 44–76
[2022-02-17] MEDS: IPRATROPIUM BROM 0.5 MG/2.5ML INH SOL NEB SCH ×4 (00:16→18:32)
[2022-02-17] MEDS: ALBUTEROL SULF 2.5 MG/0.5ML(0.5%) NEB SOLN NEB SCH ×4 (00:16→18:32)
[2022-02-17] MEDS: InsuLIN REG 1unit/0.01ml Soln (100units/ml) SC SCH ×4 (00:28→17:56)
[2022-02-17] MEDS: ACCU-CHEK COMFORT CURVE STRIP VI SCH ×4 (00:34→17:56)
[2022-02-17] MEDS: ACETAMINOPHEN 325 MG TAB PO PRN ×3 (03:50→22:08)
[2022-02-17 05:18] LABS: Hemoglobin 8.4 g/dL (12.2-16.2); Mean Corpuscular Hemoglobin 24.3 pg (28.0-32.0); Red Blood Cells 3.44 10^6/uL (4.0-5.20)
[2022-02-17 05:19] LABS: Hematocrit 27.5 % (36.0-46.0); Mean Corpuscular Hgb Conc. 30.4 g/dL (32.0-36.0); Mean Corpuscular Volume 79.8 fL (80.0-100.0)
[2022-02-17 05:32] LABS: Albumin 1.8 g/dL (3.4-5.0); BUN/Creatinine Ratio 76.8; Calcium 8.7 mg/dL (8.5-10.1); Magnesium 2.2 mg/dL (1.6-2.6); Potassium 3.5 mmol/L (3.5-5.1)
[2022-02-17 05:35] LABS: Bilirubin, Total 0.5 mg/dL (0.2-1.0); Phosphorus 2.1 mg/dL (2.5-4.90); Total Protein 5.9 g/dL (6.4-8.2)
[2022-02-17 05:46] LABS: Basophils % (manual) 0 (0.0-2.0); Blast Cells 0; Metamyelocytes % 0; Promyelocytes % 0; Reactive Lymphocytes 0; Red Cell Distribution Width 26.3 % (11.8-14.3)
[2022-02-17] MEDS: FUROSEMIDE 40 MG/4 ML VIAL IV SCH ×2 (06:20→17:58)
[2022-02-17] MEDS: Glucerna Carbsteady SHAKE Vanilla 8oz PO SCH ×3 (08:00→17:55)
[2022-02-17] MEDS: ENOXAPARIN SOD 40 MG/0.4 ML SYRINGE SC SCH (08:43)
[2022-02-17] MEDS: AMIODARONE HCL 200 MG TAB PEG SCH (08:43)
[2022-02-17] MEDS: PANTOPRAZOLE 40 MG/10 ML VIAL INJ IV SCH ×2 (08:43→22:08)
[2022-02-17 09:16] LABS: Band Neutrophils % (manual) 15; Eosinophils % (manual) 2 (0-7); Lymphocytes % (manual) 24 (10.0-50.0); Monocytes % (manual) 14 (0-12); Myelocytes % 2
[2022-02-17] MEDS: fentaNYL Drip 2500mCg/250mlNS 250 ML IV SCH (11:46)
[2022-02-17] MEDS: PROPOFOL 100 ML IV SCH (11:49)
[2022-02-17] MEDS: MIDAZOLAM DRIP 50 mg/50mL 50 ML IV SCH (11:50)
[2022-02-17] MEDS: NOREPINEPHRINE 8 MG/250ML KIT 250 ML IV SCH (11:50)
[2022-02-17] MEDS: LORazepam 2MG/ML-1ML VIAL IV PRN ×2 (14:37→21:29)
[2022-02-17] MEDS ORDERED: TPN PER PHARMACY IV NR ×7 (20:00)
[2022-02-17] MEDS: MORPHINE SULFATE INJ 2 MG/ml SYRG IV PRN (20:43)
[2022-02-17] MEDS: ATORVASTATIN 20 MG TAB PEG SCH (22:08)
[2022-02-18] VITALS (35 sets, daily range): BP systolic 105–144; BP diastolic 41–69
[2022-02-18] MEDS: ACCU-CHEK COMFORT CURVE STRIP VI SCH ×5 (00:09→23:52)
[2022-02-18] MEDS: MORPHINE SULFATE INJ 2 MG/ml SYRG IV PRN ×3 (00:09→21:09)
[2022-02-18] MEDS: InsuLIN REG 1unit/0.01ml Soln (100units/ml) SC SCH ×5 (00:14→23:52)
[2022-02-18] MEDS: ALBUTEROL SULF 2.5 MG/0.5ML(0.5%) NEB SOLN NEB SCH ×4 (00:53→18:31)
[2022-02-18] MEDS: IPRATROPIUM BROM 0.5 MG/2.5ML INH SOL NEB SCH ×4 (00:54→18:31)
[2022-02-18] MEDS: FUROSEMIDE 40 MG/4 ML VIAL IV SCH ×2 (06:45→18:06)
[2022-02-18] MEDS: ACETAMINOPHEN 325 MG TAB PO PRN ×2 (06:59→16:41)
[2022-02-18 07:20] LABS: BUN/Creatinine Ratio 73.7; Potassium 3.5 mmol/L (3.5-5.1)
[2022-02-18 07:26] LABS: Basophils # (auto) 0 10 ^3/uL (0-0.2); Eosinophils # (auto) 0 10 ^3/uL (0-0.8); Eosinophils % (auto) 0.2 % (0.0-7.0); Monocytes # (auto) 1.8 10 ^3/uL (0-1.3)
[2022-02-18 07:33] LABS: Basophils % (auto) 0.2 % (0.0-2.0); Hematocrit 26.1 % (36.0-46.0); Hemoglobin 8.6 g/dL (12.2-16.2); Lymphocytes % (auto) 8.6 % (10.0-50.0); Mean Corpuscular Hemoglobin 25.8 pg (28.0-32.0); Mean Corpuscular Volume 78.3 fL (80.0-100.0); Monocytes % (auto) 15.4 % (0.0-12.0); Neutrophils # (auto) 8.6 10 ^3/uL (1.6-8.6); Neutrophils % (auto) 75.6 % (37.0-80.0); Nucleated Red Blood Cells % 0.2 %; Red Blood Cells 3.33 10^6/uL (4.0-5.20); White Blood Cell 11.4 10^3/uL (4.4-10.8)
[2022-02-18 07:41] LABS: Red Cell Distribution Width 25.7 % (11.8-14.3)
[2022-02-18] MEDS: Glucerna Carbsteady SHAKE Vanilla 8oz PO SCH (08:00)
[2022-02-18] MEDS: PANTOPRAZOLE 40 MG/10 ML VIAL INJ IV SCH ×2 (09:31→22:00)
[2022-02-18] MEDS: ENOXAPARIN SOD 40 MG/0.4 ML SYRINGE SC SCH (09:31)
[2022-02-18] MEDS: AMIODARONE HCL 200 MG TAB PEG SCH (09:31)
[2022-02-18 11:11] LABS: Urine Bacteria None Seen /hpf (None Seen); Urine WBC None Seen /hpf (0 - 5)
[2022-02-18 11:59] LABS: Urine Specific Gravity 1.014 (1.001-1.035)
[2022-02-18 12:01] LABS: Urine Blood TRACE /uL (Negative)
[2022-02-18] MEDS: fentaNYL Drip 2500mCg/250mlNS 250 ML IV SCH (12:30)
[2022-02-18] MEDS: NOREPINEPHRINE 8 MG/250ML KIT 250 ML IV SCH (12:30)
[2022-02-18] MEDS: PROPOFOL 100 ML IV SCH (12:30)
[2022-02-18] MEDS: MIDAZOLAM DRIP 50 mg/50mL 50 ML IV SCH (12:30)
[2022-02-18] MEDS: METOCLOPRAMIDE HCL 5MG/ml INJ 2ml VIAL IV SCH ×2 (14:05→22:00)
[2022-02-18] MEDS: Glucerna 1.2 Cal 1Liter BOTTLE GT SCH (18:21)
[2022-02-18] MEDS: ATORVASTATIN 20 MG TAB PEG SCH (22:02)
[2022-02-19] VITALS (44 sets, daily range): BP systolic 80–143; BP diastolic 34–68
[2022-02-19] MEDS: ALBUTEROL SULF 2.5 MG/0.5ML(0.5%) NEB SOLN NEB SCH ×3 (00:06→12:47)
[2022-02-19] MEDS: IPRATROPIUM BROM 0.5 MG/2.5ML INH SOL NEB SCH ×3 (00:06→12:47)
[2022-02-19] MEDS: MORPHINE SULFATE INJ 2 MG/ml SYRG IV PRN ×4 (02:53→10:58)
[2022-02-19] MEDS: ACETAMINOPHEN 325 MG TAB PO PRN (03:50)
[2022-02-19] MEDS: FUROSEMIDE 40 MG/4 ML VIAL IV SCH ×2 (06:01→17:37)
[2022-02-19] MEDS: InsuLIN REG 1unit/0.01ml Soln (100units/ml) SC SCH ×3 (06:03→17:45)
[2022-02-19] MEDS: ACCU-CHEK COMFORT CURVE STRIP VI SCH ×3 (06:03→17:44)
[2022-02-19] MEDS: METOCLOPRAMIDE HCL 5MG/ml INJ 2ml VIAL IV SCH ×3 (06:04→21:38)
[2022-02-19] MEDS: fentaNYL Drip 2500mCg/250mlNS 250 ML IV SCH ×2 (10:17→15:58)
[2022-02-19] MEDS: PANTOPRAZOLE 40 MG/10 ML VIAL INJ IV SCH ×2 (10:19→21:38)
[2022-02-19] MEDS: ENOXAPARIN SOD 40 MG/0.4 ML SYRINGE SC SCH (10:19)
[2022-02-19] MEDS: AMIODARONE HCL 200 MG TAB PEG SCH (10:20)
[2022-02-19] MEDS: MIDAZOLAM DRIP 50 mg/50mL 50 ML IV SCH (12:30)
[2022-02-19] MEDS: PROPOFOL 100 ML IV SCH (13:10)
[2022-02-19] MEDS: NOREPINEPHRINE 8 MG/250ML KIT 250 ML IV SCH (13:11)
[2022-02-19] MEDS: ATORVASTATIN 20 MG TAB PEG SCH (21:38)
[2022-02-19] MEDS: AMPICILLIN INJ 500 MG in SODIUM CHL 0.9% 50 ML IV SCH (23:53)
[2022-02-20] VITALS (93 sets, daily range): BP systolic 47–132; BP diastolic 30–74
[2022-02-20] MEDS: ACCU-CHEK COMFORT CURVE STRIP VI SCH ×4 (00:10→18:25)
[2022-02-20] MEDS: ALBUTEROL SULF 2.5 MG/0.5ML(0.5%) NEB SOLN NEB SCH ×4 (00:42→18:27)
[2022-02-20] MEDS: IPRATROPIUM BROM 0.5 MG/2.5ML INH SOL NEB SCH ×4 (00:42→18:27)
[2022-02-20] MEDS: InsuLIN REG 1unit/0.01ml Soln (100units/ml) SC SCH ×4 (06:00→18:00)
[2022-02-20] MEDS: METOCLOPRAMIDE HCL 5MG/ml INJ 2ml VIAL IV SCH (06:00)
[2022-02-20] MEDS: FUROSEMIDE 40 MG/4 ML VIAL IV SCH ×2 (06:11→18:25)
[2022-02-20] MEDS: AMPICILLIN INJ 500 MG in SODIUM CHL 0.9% 50 ML IV SCH ×2 (06:11→18:38)
[2022-02-20] MEDS: fentaNYL Drip 2500mCg/250mlNS 250 ML IV SCH ×2 (08:28→22:53)
[2022-02-20] MEDS: PANTOPRAZOLE 40 MG/10 ML VIAL INJ IV SCH ×2 (10:16→22:26)
[2022-02-20] MEDS: ENOXAPARIN SOD 40 MG/0.4 ML SYRINGE SC SCH (10:17)
[2022-02-20] MEDS: AMIODARONE HCL 200 MG TAB PEG SCH (10:17)
[2022-02-20] MEDS: NOREPINEPHRINE 8 MG/250ML KIT 250 ML IV SCH (12:30)
[2022-02-20] MEDS: PROPOFOL 100 ML IV SCH (12:30)
[2022-02-20] MEDS: MIDAZOLAM DRIP 50 mg/50mL 50 ML IV SCH (12:30)
[2022-02-20] MEDS: ATORVASTATIN 20 MG TAB PEG SCH (22:26)
[2022-02-21] VITALS (99 sets, daily range): BP systolic 93–139; BP diastolic 35–69
[2022-02-21] MEDS: ACCU-CHEK COMFORT CURVE STRIP VI SCH ×5 (00:10→23:55)
[2022-02-21] MEDS: AMPICILLIN INJ 500 MG in SODIUM CHL 0.9% 50 ML IV SCH ×5 (00:10→23:55)
[2022-02-21] MEDS: IPRATROPIUM BROM 0.5 MG/2.5ML INH SOL NEB SCH ×5 (00:17→23:48)
[2022-02-21] MEDS: ALBUTEROL SULF 2.5 MG/0.5ML(0.5%) NEB SOLN NEB SCH ×5 (00:17→23:48)
[2022-02-21 05:07] LABS: Basophils # (auto) 0 10 ^3/uL (0-0.2); Eosinophils # (auto) 0 10 ^3/uL (0-0.8); Eosinophils % (auto) 0.2 % (0.0-7.0); Hematocrit 26.4 % (36.0-46.0)
[2022-02-21 05:11] LABS: Basophils % (auto) 0.4 % (0.0-2.0); Hemoglobin 8.2 g/dL (12.2-16.2); Lymphocytes # (auto) 0.6 10 ^3/uL (0.4-5.4); Lymphocytes % (auto) 5.7 % (10.0-50.0); Mean Corpuscular Hemoglobin 25.3 pg (28.0-32.0); Mean Corpuscular Hgb Conc. 31.2 g/dL (32.0-36.0); Monocytes % (auto) 9.9 % (0.0-12.0); Neutrophils # (auto) 8.4 10 ^3/uL (1.6-8.6); Neutrophils % (auto) 83.8 % (37.0-80.0); Nucleated Red Blood Cells % 0.7 %; Red Blood Cells 3.26 10^6/uL (4.0-5.20); White Blood Cell 10.1 10^3/uL (4.4-10.8)
[2022-02-21 05:19] LABS: BUN/Creatinine Ratio 51.1; Magnesium 2.4 mg/dL (1.6-2.6); Potassium 3.4 mmol/L (3.5-5.1)
[2022-02-21 05:30] LABS: Red Cell Distribution Width 24.7 % (11.8-14.3)
[2022-02-21] MEDS: InsuLIN REG 1unit/0.01ml Soln (100units/ml) SC SCH ×4 (06:00→18:00)
[2022-02-21] MEDS: FUROSEMIDE 40 MG/4 ML VIAL IV SCH ×2 (06:45→18:27)
[2022-02-21] MEDS: AMIODARONE HCL 200 MG TAB PEG SCH (10:17)
[2022-02-21] MEDS: ENOXAPARIN SOD 40 MG/0.4 ML SYRINGE SC SCH (10:17)
[2022-02-21] MEDS: PANTOPRAZOLE 40 MG/10 ML VIAL INJ IV SCH ×2 (10:17→21:40)
[2022-02-21] MEDS: POTASSIUM CHL 20MEQ/100ML 100 ML IV SCH ×2 (10:18→12:19)
[2022-02-21] MEDS: PROPOFOL 100 ML IV SCH (12:20)
[2022-02-21] MEDS: MIDAZOLAM DRIP 50 mg/50mL 50 ML IV SCH (12:30)
[2022-02-21] MEDS: NOREPINEPHRINE 8 MG/250ML KIT 250 ML IV SCH (12:30)
[2022-02-21] MEDS: fentaNYL Drip 2500mCg/250mlNS 250 ML IV SCH (12:32)
[2022-02-21] MEDS: ATORVASTATIN 20 MG TAB PEG SCH (21:40)
[2022-02-22] VITALS (109 sets, daily range): BP systolic 89–135; BP diastolic 37–65
[2022-02-22] MEDS: InsuLIN REG 1unit/0.01ml Soln (100units/ml) SC SCH
[2022-02-22] MEDS: fentaNYL Drip 2500mCg/250mlNS 250 ML IV SCH (00:48)
[2022-02-22 06:17] LABS: BUN/Creatinine Ratio 39.3; Calcium 9.2 mg/dL (8.5-10.1); Potassium 4.1 mmol/L (3.5-5.1)
[2022-02-22 06:32] LABS: Hemoglobin 8.1 g/dL (12.2-16.2); Mean Corpuscular Hemoglobin 25.9 pg (28.0-32.0); Mean Corpuscular Hgb Conc. 31.3 g/dL (32.0-36.0); Mean Corpuscular Volume 82.6 fL (80.0-100.0); Red Blood Cells 3.14 10^6/uL (4.0-5.20); White Blood Cell 10.3 10^3/uL (4.4-10.8)
[2022-02-22] MEDS: FUROSEMIDE 40 MG/4 ML VIAL IV SCH ×2 (06:43→18:00)
[2022-02-22] MEDS: AMPICILLIN INJ 500 MG in SODIUM CHL 0.9% 50 ML IV SCH ×3 (06:43→18:04)
[2022-02-22 06:47] LABS: Red Cell Distribution Width 24.6 % (11.8-14.3)
[2022-02-22 06:50] LABS: Basophils % (manual) 0 (0.0-2.0); Blast Cells 0; Eosinophils % (manual) 0 (0-7); Metamyelocytes % 0; Myelocytes % 0; Promyelocytes % 0; Reactive Lymphocytes 0
[2022-02-22] MEDS: ALBUTEROL SULF 2.5 MG/0.5ML(0.5%) NEB SOLN NEB SCH ×3 (06:50→18:27)
[2022-02-22] MEDS: IPRATROPIUM BROM 0.5 MG/2.5ML INH SOL NEB SCH ×3 (06:50→18:27)
[2022-02-22] MEDS: AMIODARONE HCL 200 MG TAB PEG SCH (09:42)
[2022-02-22] MEDS: PANTOPRAZOLE 40 MG/10 ML VIAL INJ IV SCH ×2 (09:42→21:54)
[2022-02-22] MEDS: ENOXAPARIN SOD 40 MG/0.4 ML SYRINGE SC SCH (09:42)
[2022-02-22 11:11] LABS: Band Neutrophils % (manual) 8; Lymphocytes % (manual) 12 (10.0-50.0); Monocytes % (manual) 8 (0-12)
[2022-02-22] MEDS: PROPOFOL 100 ML IV SCH (12:30)
[2022-02-22] MEDS: NOREPINEPHRINE 8 MG/250ML KIT 250 ML IV SCH (12:30)
[2022-02-22] MEDS: MIDAZOLAM DRIP 50 mg/50mL 50 ML IV SCH (14:25)
[2022-02-22] MEDS ORDERED: METOCLOPRAMIDE HCL 5MG/ml INJ 2ml VIAL IV PRN (17:15)
[2022-02-22] MEDS: ATORVASTATIN 20 MG TAB PEG SCH (21:54)
[2022-02-23] VITALS (97 sets, daily range): BP systolic 103–165; BP diastolic 44–101
[2022-02-23] MEDS: ALBUTEROL SULF 2.5 MG/0.5ML(0.5%) NEB SOLN NEB SCH ×4 (00:18→18:43)
[2022-02-23] MEDS: IPRATROPIUM BROM 0.5 MG/2.5ML INH SOL NEB SCH ×4 (00:18→18:43)
[2022-02-23] MEDS: AMPICILLIN INJ 500 MG in SODIUM CHL 0.9% 50 ML IV SCH ×4 (00:28→18:37)
[2022-02-23] MEDS: fentaNYL Drip 2500mCg/250mlNS 250 ML IV SCH (01:05)
[2022-02-23 05:51] LABS: Basophils # (auto) 0 10 ^3/uL (0-0.2); Eosinophils # (auto) 0 10 ^3/uL (0-0.8); Eosinophils % (auto) 0.2 % (0.0-7.0); Lymphocytes % (auto) 8.9 % (10.0-50.0); White Blood Cell 11.2 10^3/uL (4.4-10.8)
[2022-02-23 05:54] LABS: Basophils % (auto) 0.4 % (0.0-2.0); Hematocrit 26.1 % (36.0-46.0); Hemoglobin 8.2 g/dL (12.2-16.2); Mean Corpuscular Hemoglobin 25.4 pg (28.0-32.0); Mean Corpuscular Hgb Conc. 31.2 g/dL (32.0-36.0); Mean Corpuscular Volume 81.5 fL (80.0-100.0); Monocytes % (auto) 8.8 % (0.0-12.0); Neutrophils # (auto) 9.1 10 ^3/uL (1.6-8.6); Neutrophils % (auto) 81.7 % (37.0-80.0); Nucleated Red Blood Cells % 0.5 %; Red Blood Cells 3.21 10^6/uL (4.0-5.20)
[2022-02-23 05:57] LABS: Calcium 8.9 mg/dL (8.5-10.1); Potassium 4.4 mmol/L (3.5-5.1)
[2022-02-23 05:59] LABS: Red Cell Distribution Width 25.2 % (11.8-14.3)
[2022-02-23 06:00] LABS: BUN/Creatinine Ratio 38.7
[2022-02-23] MEDS: FUROSEMIDE 40 MG/4 ML VIAL IV SCH ×2 (06:24→17:49)
[2022-02-23] MEDS: AMIODARONE HCL 200 MG TAB PEG SCH (09:17)
[2022-02-23] MEDS: PANTOPRAZOLE 40 MG/10 ML VIAL INJ IV SCH ×2 (09:18→21:46)
[2022-02-23] MEDS: ENOXAPARIN SOD 40 MG/0.4 ML SYRINGE SC SCH (09:18)
[2022-02-23] MEDS: MIDAZOLAM DRIP 50 mg/50mL 50 ML IV SCH (10:44)
[2022-02-23] MEDS: NOREPINEPHRINE 8 MG/250ML KIT 250 ML IV SCH (10:44)
[2022-02-23] MEDS: PROPOFOL 100 ML IV SCH (10:44)
[2022-02-23] MEDS: ATORVASTATIN 20 MG TAB PEG SCH (21:46)
[2022-02-24] VITALS (102 sets, daily range): BP systolic 104–139; BP diastolic 42–85
[2022-02-24] MEDS: IPRATROPIUM BROM 0.5 MG/2.5ML INH SOL NEB SCH ×4 (00:06→18:37)
[2022-02-24] MEDS: ALBUTEROL SULF 2.5 MG/0.5ML(0.5%) NEB SOLN NEB SCH ×4 (00:06→18:37)
[2022-02-24] MEDS: AMPICILLIN INJ 500 MG in SODIUM CHL 0.9% 50 ML IV SCH ×5 (00:11→23:54)
[2022-02-24] MEDS: FUROSEMIDE 40 MG/4 ML VIAL IV SCH ×2 (05:45→17:25)
[2022-02-24] MEDS: Glucerna 1.2 Cal 1Liter BOTTLE GT SCH (05:46)
[2022-02-24] MEDS: PANTOPRAZOLE 40 MG/10 ML VIAL INJ IV SCH ×2 (08:48→22:02)
[2022-02-24] MEDS: AMIODARONE HCL 200 MG TAB PEG SCH (08:49)
[2022-02-24] MEDS: NOREPINEPHRINE 8 MG/250ML KIT 250 ML IV SCH (10:07)
[2022-02-24] MEDS: PROPOFOL 100 ML IV SCH (10:07)
[2022-02-24] MEDS: fentaNYL Drip 2500mCg/250mlNS 250 ML IV SCH (10:07)
[2022-02-24 15:12] LABS: Basophils # (auto) 0 10 ^3/uL (0-0.2); Basophils % (auto) 0.2 % (0.0-2.0); Eosinophils # (auto) 0 10 ^3/uL (0-0.8); Eosinophils % (auto) 0.2 % (0.0-7.0); Lymphocytes # (auto) 0.7 10 ^3/uL (0.4-5.4); Neutrophils # (auto) 9.1 10 ^3/uL (1.6-8.6)
[2022-02-24 15:14] LABS: Hemoglobin 8.6 g/dL (12.2-16.2); Lymphocytes % (auto) 6.5 % (10.0-50.0); Mean Corpuscular Hgb Conc. 30.6 g/dL (32.0-36.0); Mean Corpuscular Volume 85.1 fL (80.0-100.0); Monocytes # (auto) 0.6 10 ^3/uL (0-1.3); Neutrophils % (auto) 87.1 % (37.0-80.0); Nucleated Red Blood Cells % 0.2 %; Red Blood Cells 3.29 10^6/uL (4.0-5.20); White Blood Cell 10.5 10^3/uL (4.4-10.8)
[2022-02-24 15:20] LABS: BUN/Creatinine Ratio 36.4; Calcium 8.9 mg/dL (8.5-10.1)
[2022-02-24 15:25] LABS: Red Cell Distribution Width 25.3 % (11.8-14.3)
[2022-02-24] MEDS ORDERED: CATHFLO ACTIVASE (ALTEPLASE) 2 MG VIAL IV ONE (16:30)
[2022-02-24] MEDS: ATORVASTATIN 20 MG TAB PEG SCH (22:02)
[2022-02-25] VITALS (100 sets, daily range): BP systolic 103–143; BP diastolic 44–75
[2022-02-25] MEDS: ALBUTEROL SULF 2.5 MG/0.5ML(0.5%) NEB SOLN NEB SCH ×4 (00:33→18:36)
[2022-02-25] MEDS: IPRATROPIUM BROM 0.5 MG/2.5ML INH SOL NEB SCH ×4 (00:33→18:36)
[2022-02-25 05:22] LABS: Basophils # (auto) 0 10 ^3/uL (0-0.2); Basophils % (auto) 0.1 % (0.0-2.0); Eosinophils # (auto) 0 10 ^3/uL (0-0.8); Hemoglobin 7.9 g/dL (12.2-16.2); Nucleated Red Blood Cells % 0.1 %
[2022-02-25 05:25] LABS: Eosinophils % (auto) 0.3 % (0.0-7.0); Hematocrit 25.4 % (36.0-46.0); Lymphocytes # (auto) 0.6 10 ^3/uL (0.4-5.4); Lymphocytes % (auto) 5.9 % (10.0-50.0); Mean Corpuscular Hemoglobin 25.4 pg (28.0-32.0); Mean Corpuscular Volume 81.8 fL (80.0-100.0); Monocytes # (auto) 0.7 10 ^3/uL (0-1.3); Monocytes % (auto) 7.1 % (0.0-12.0); Neutrophils # (auto) 8.8 10 ^3/uL (1.6-8.6); Neutrophils % (auto) 86.6 % (37.0-80.0); Red Blood Cells 3.11 10^6/uL (4.0-5.20); White Blood Cell 10.2 10^3/uL (4.4-10.8)
[2022-02-25 05:36] LABS: Calcium 8.7 mg/dL (8.5-10.1); Potassium 3.5 mmol/L (3.5-5.1)
[2022-02-25 05:44] LABS: Red Cell Distribution Width 25.4 % (11.8-14.3)
[2022-02-25] MEDS: AMPICILLIN INJ 500 MG in SODIUM CHL 0.9% 50 ML IV SCH ×3 (05:51→18:17)
[2022-02-25] MEDS: FUROSEMIDE 40 MG/4 ML VIAL IV SCH ×2 (05:52→17:39)
[2022-02-25] MEDS: PANTOPRAZOLE 40 MG/10 ML VIAL INJ IV SCH ×2 (10:10→22:18)
[2022-02-25] MEDS: AMIODARONE HCL 200 MG TAB PEG SCH (10:10)
[2022-02-25] MEDS: PROPOFOL 100 ML IV SCH ×2 (11:44→17:44)
[2022-02-25] MEDS: fentaNYL Drip 2500mCg/250mlNS 250 ML IV SCH ×2 (11:47→16:23)
[2022-02-25] MEDS: NOREPINEPHRINE 8 MG/250ML KIT 250 ML IV SCH (11:47)
[2022-02-25] MEDS: Glucerna 1.2 Cal 1Liter BOTTLE GT SCH ×2 (17:22→21:00)
[2022-02-25] MEDS: ATORVASTATIN 20 MG TAB PEG SCH (22:19)
[2022-02-26] VITALS (105 sets, daily range): BP systolic 90–130; BP diastolic 45–68
[2022-02-26] MEDS: AMPICILLIN INJ 500 MG in SODIUM CHL 0.9% 50 ML IV SCH ×4 (00:06→17:24)
[2022-02-26] MEDS: IPRATROPIUM BROM 0.5 MG/2.5ML INH SOL NEB SCH ×4 (00:18→23:30)
[2022-02-26] MEDS: ALBUTEROL SULF 2.5 MG/0.5ML(0.5%) NEB SOLN NEB SCH ×4 (00:18→23:30)
[2022-02-26] MEDS: PROPOFOL 100 ML IV SCH ×4 (03:00→23:15)
[2022-02-26] MEDS: FUROSEMIDE 40 MG/4 ML VIAL IV SCH ×2 (06:00→17:24)
[2022-02-26] MEDS: PANTOPRAZOLE 40 MG/10 ML VIAL INJ IV SCH ×2 (06:37→22:20)
[2022-02-26] MEDS: AMIODARONE HCL 200 MG TAB PEG SCH (09:52)
[2022-02-26] MEDS: NOREPINEPHRINE 8 MG/250ML KIT 250 ML IV SCH (12:30)
[2022-02-26] MEDS: Glucerna 1.2 Cal 1Liter BOTTLE GT SCH (20:00)
[2022-02-26 20:27] LABS: Hematocrit 26.1 % (36.0-46.0); Hemoglobin 8.2 g/dL (12.2-16.2); Mean Corpuscular Hgb Conc. 31.5 g/dL (32.0-36.0)
[2022-02-26 20:29] LABS: Mean Corpuscular Hemoglobin 25.7 pg (28.0-32.0); Mean Corpuscular Volume 81.5 fL (80.0-100.0)
[2022-02-26 20:33] LABS: Red Cell Distribution Width 25.5 % (11.8-14.3)
[2022-02-26 20:37] LABS: Band Neutrophils % (manual) 0; Basophils % (manual) 0 (0.0-2.0); Blast Cells 0; Eosinophils % (manual) 0 (0-7); Metamyelocytes % 0; Myelocytes % 0; Promyelocytes % 0; Reactive Lymphocytes 0
[2022-02-26 20:44] LABS: Albumin 1.8 g/dL (3.4-5.0); Calcium 8.2 mg/dL (8.5-10.1); Magnesium 2.2 mg/dL (1.6-2.6); Potassium 3.6 mmol/L (3.5-5.1)
[2022-02-26 20:48] LABS: BUN/Creatinine Ratio 40.4; Bilirubin, Total 0.4 mg/dL (0.2-1.0); Total Protein 5.7 g/dL (6.4-8.2)
[2022-02-26 21:08] LABS: Lymphocytes % (manual) 25 (10.0-50.0); Monocytes % (manual) 7 (0-12)
[2022-02-26] MEDS: ATORVASTATIN 20 MG TAB PEG SCH (22:20)
[2022-02-27] VITALS (104 sets, daily range): BP systolic 104–129; BP diastolic 49–66
[2022-02-27] MEDS: FUROSEMIDE 40 MG/4 ML VIAL IV SCH ×2 (06:00→18:37)
[2022-02-27] MEDS: AMPICILLIN INJ 500 MG in SODIUM CHL 0.9% 50 ML IV SCH ×4 (06:00→11:45)
[2022-02-27] MEDS ORDERED: ALBUTEROL MEDNEB 2.5 mg/3ml NEB ONE ×2 (06:17→12:17)
[2022-02-27] MEDS: IPRATROPIUM BROM 0.5 MG/2.5ML INH SOL NEB SCH ×3 (06:27→18:38)
[2022-02-27] MEDS: ALBUTEROL SULF 2.5 MG/0.5ML(0.5%) NEB SOLN NEB SCH ×3 (06:27→18:38)
[2022-02-27] MEDS: PROPOFOL 100 ML IV SCH ×3 (06:30→20:00)
[2022-02-27] MEDS: AMIODARONE HCL 200 MG TAB PEG SCH (11:42)
[2022-02-27] MEDS: PANTOPRAZOLE 40 MG/10 ML VIAL INJ IV SCH ×2 (11:42→22:00)
[2022-02-27] MEDS: fentaNYL Drip 2500mCg/250mlNS 250 ML IV SCH (11:57)
[2022-02-27] MEDS: NOREPINEPHRINE 8 MG/250ML KIT 250 ML IV SCH (12:30)
[2022-02-27] MEDS: Glucerna 1.2 Cal 1Liter BOTTLE GT SCH (20:00)
[2022-02-27] MEDS: ATORVASTATIN 20 MG TAB PEG SCH (22:00)
[2022-02-27] MEDS: AMOXICILLIN TRIHYDRATE 250 MG CAP PO SCH (22:00)
[2022-02-28] VITALS (66 sets, daily range): BP systolic 102–153; BP diastolic 49–75
[2022-02-28] MEDS: ALBUTEROL SULF 2.5 MG/0.5ML(0.5%) NEB SOLN NEB SCH ×3 (00:28→11:52)
[2022-02-28] MEDS: IPRATROPIUM BROM 0.5 MG/2.5ML INH SOL NEB SCH ×5 (00:28→23:45)
[2022-02-28] MEDS: PROPOFOL 100 ML IV SCH ×3 (02:47→22:00)
[2022-02-28 05:19] LABS: Basophils # (auto) 0 10 ^3/uL (0-0.2); Basophils % (auto) 0.2 % (0.0-2.0); Eosinophils # (auto) 0 10 ^3/uL (0-0.8); Hemoglobin 8.1 g/dL (12.2-16.2); Lymphocytes # (auto) 0.8 10 ^3/uL (0.4-5.4)
[2022-02-28 05:22] LABS: Eosinophils % (auto) 0.5 % (0.0-7.0); Hematocrit 26.1 % (36.0-46.0); Lymphocytes % (auto) 9.7 % (10.0-50.0); Mean Corpuscular Hemoglobin 25.4 pg (28.0-32.0); Neutrophils # (auto) 6.3 10 ^3/uL (1.6-8.6); Neutrophils % (auto) 77.6 % (37.0-80.0); Nucleated Red Blood Cells % 0.6 %; Red Blood Cells 3.18 10^6/uL (4.0-5.20); White Blood Cell 8.1 10^3/uL (4.4-10.8)
[2022-02-28 05:31] LABS: Red Cell Distribution Width 25.9 % (11.8-14.3)
[2022-02-28 05:37] LABS: Calcium 8.1 mg/dL (8.5-10.1); Magnesium 2.3 mg/dL (1.6-2.6); Potassium 3.6 mmol/L (3.5-5.1)
[2022-02-28] MEDS: AMOXICILLIN TRIHYDRATE 250 MG CAP PO SCH ×3 (05:57→22:00)
[2022-02-28] MEDS: FUROSEMIDE 40 MG/4 ML VIAL IV SCH ×2 (05:58→18:00)
[2022-02-28] MEDS ORDERED: IPRATROPIUM BROM 0.5 MG/2.5ML INH SOL ONE (06:18)
[2022-02-28] MEDS ORDERED: ALBUTEROL MEDNEB 2.5 mg/3ml NEB ONE ×2 (06:18→11:20)
[2022-02-28] MEDS: PANTOPRAZOLE 40 MG/10 ML VIAL INJ IV SCH ×2 (10:00→22:00)
[2022-02-28] MEDS: AMIODARONE HCL 200 MG TAB PEG SCH (10:00)
[2022-02-28] MEDS: fentaNYL Drip 2500mCg/250mlNS 250 ML IV SCH (10:35)
[2022-02-28] MEDS ORDERED: MORPHINE SULFATE INJ 2 MG/ml SYRG IV PRN (12:15)
[2022-02-28] MEDS ORDERED: LORazepam 2MG/ML-1ML VIAL IV PRN (12:15)
[2022-02-28] MEDS: NOREPINEPHRINE 8 MG/250ML KIT 250 ML IV SCH (12:30)
[2022-02-28] MEDS: ALBUTEROL MEDNEB 2.5 mg/3ml NEB NEB SCH ×2 (18:09→23:45)
[2022-02-28] MEDS: Glucerna 1.2 Cal 1Liter BOTTLE GT SCH (21:00)
[2022-02-28] MEDS: ATORVASTATIN 20 MG TAB PEG SCH (22:00)
[2022-03-01] VITALS (47 sets, daily range): BP systolic 98–143; BP diastolic 42–68
[2022-03-01] MEDS: IPRATROPIUM BROM 0.5 MG/2.5ML INH SOL NEB SCH ×2 (06:13→12:40)
[2022-03-01] MEDS: ALBUTEROL MEDNEB 2.5 mg/3ml NEB NEB SCH ×2 (06:13→12:39)
[2022-03-01] MEDS: AMOXICILLIN TRIHYDRATE 250 MG CAP PO SCH ×2 (06:26→14:00)
[2022-03-01] MEDS: FUROSEMIDE 40 MG/4 ML VIAL IV SCH (06:26)
[2022-03-01] MEDS: fentaNYL Drip 2500mCg/250mlNS 250 ML IV SCH (09:34)
[2022-03-01] MEDS: PROPOFOL 100 ML IV SCH ×2 (09:36→12:09)
[2022-03-01] MEDS: PANTOPRAZOLE 40 MG/10 ML VIAL INJ IV SCH (10:00)
[2022-03-01] MEDS: AMIODARONE HCL 200 MG TAB PEG SCH (10:00)
[2022-03-01] MEDS ORDERED: CATHFLO ACTIVASE (ALTEPLASE) 2 MG VIAL IV ONE (11:00)
[2022-03-01] MEDS: NOREPINEPHRINE 8 MG/250ML KIT 250 ML IV SCH (12:30)
== END 2022-03-01 15:05 | disposition short-term general hospital (02) | DRG 870 ==
LOC: EDBD 17:20 → ER 17:20 → TELE 20:54 → TELE-WESTW 01-15 08:46 → ICU CENTRL 02-08 13:05
PROVIDERS: ADMIT Nurse Practitioner; ATTEND Nurse Practitioner
PROC: 05HF33Z Insertion of Infusion Device into Left Cephalic Vein, Percutaneous Approach (ICD-10-PCS; principal; 2022-01-15)
PROC: B54NZZA Ultrasonography of Left Upper Extremity Veins, Guidance (ICD-10-PCS; 2022-01-15)
PROC: 0DB98ZX Excision of Duodenum, Via Natural or Artificial Opening Endoscopic, Diagnostic (ICD-10-PCS; 2022-01-29)
PROC: 0DB68ZX Excision of Stomach, Via Natural or Artificial Opening Endoscopic, Diagnostic (ICD-10-PCS; 2022-01-29)
PROC: 5A1955Z Respiratory Ventilation, Greater than 96 Consecutive Hours (ICD-10-PCS; 2022-02-08)
PROC: 0BH17EZ Insertion of Endotracheal Airway into Trachea, Via Natural or Artificial Opening (ICD-10-PCS; 2022-02-08)
PROC: 02HV33Z Insertion of Infusion Device into Superior Vena Cava, Percutaneous Approach (ICD-10-PCS; 2022-02-08)
PROC: B548ZZA Ultrasonography of Superior Vena Cava, Guidance (ICD-10-PCS; 2022-02-08)
PROC: 30233N1 Transfusion of Nonautologous Red Blood Cells into Peripheral Vein, Percutaneous Approach (ICD-10-PCS; 2022-02-09)
PROC: 0DH63UZ Insertion of Feeding Device into Stomach, Percutaneous Approach (ICD-10-PCS; 2022-02-12)
DX: A41.9 Sepsis, unspecified organism (principal); I50.23 Acute on chronic systolic (congestive) heart failure; J96.21 Acute and chronic respiratory failure with hypoxia; J44.1 Chronic obstructive pulmonary disease with (acute) exacerbation; I42.8 Other cardiomyopathies; N17.9 Acute kidney failure, unspecified; J98.11 Atelectasis; K22.10 Ulcer of esophagus without bleeding; E87.0 Hyperosmolality and hypernatremia; E87.1 Hypo-osmolality and hyponatremia; G93.40 Encephalopathy, unspecified; I13.0 Hypertensive heart and chronic kidney disease with heart failure and stage 1 through stage 4 chronic kidney disease, or unspecified chronic kidney disease; N39.0 Urinary tract infection, site not specified; Z20.822 Contact with and (suspected) exposure to COVID-19; N18.32 Chronic kidney disease, stage 3b; J61 Pneumoconiosis due to asbestos and other mineral fibers; N18.9 Chronic kidney disease, unspecified; R13.10 Dysphagia, unspecified; K29.70 Gastritis, unspecified, without bleeding; K44.9 Diaphragmatic hernia without obstruction or gangrene; D50.9 Iron deficiency anemia, unspecified; E11.22 Type 2 diabetes mellitus with diabetic chronic kidney disease; E11.40 Type 2 diabetes mellitus with diabetic neuropathy, unspecified; E78.5 Hyperlipidemia, unspecified; E86.0 Dehydration; E87.6 Hypokalemia; E88.09 Other disorders of plasma-protein metabolism, not elsewhere classified; F17.200 Nicotine dependence, unspecified, uncomplicated; F41.9 Anxiety disorder, unspecified; I25.10 Atherosclerotic heart disease of native coronary artery without angina pectoris; I48.91 Unspecified atrial fibrillation; M10.9 Gout, unspecified; Z79.01 Long term (current) use of anticoagulants; Z79.51 Long term (current) use of inhaled steroids; Z79.84 Long term (current) use of oral hypoglycemic drugs; Z79.899 Other long term (current) drug therapy; Z80.0 Family history of malignant neoplasm of digestive organs; Z80.1 Family history of malignant neoplasm of trachea, bronchus and lung; Z80.3 Family history of malignant neoplasm of breast; Z82.49 Family history of ischemic heart disease and other diseases of the circulatory system; Z83.3 Family history of diabetes mellitus; Z85.038 Personal history of other malignant neoplasm of large intestine; Z85.118 Personal history of other malignant neoplasm of bronchus and lung; Z90.49 Acquired absence of other specified parts of digestive tract; Z90.710 Acquired absence of both cervix and uterus; Z99.81 Dependence on supplemental oxygen; Z95.810 Presence of automatic (implantable) cardiac defibrillator; Z88.8 Allergy status to other drugs, medicaments and biological substances
CPT/HCPCS: 36415; 36600; 43246; 70450; 70490; 71045; 72125; 74176; 74230; 76536; 76705; 76775; 78582; 80048; 80053; 80069; 81001; 81003; 82042; 82378; 82607; 82746; 82784; 82805; 82962; 83540; 83550; 83605; 83735; 83880; 84100; 84132; 84439; 84443; 84478; 84484; 84550; 85007; 85014; 85018; 85025; 85027; 85379; 85610; 85730; 86301; 86304; 86592; 86703; 86850; 86900; 86901; 86920; 87040; 87070; 87081; 87086; 87088; 87186; 87205; 87426; 87804; 87807; 87880; 92507; 93005; 93306; 93970; 93971; 94002; 94003; 94640; 94660; 95819; 96365; 96375; 99291; C9113; G0378; J0690; J0696; J1100; J1450; J1756; J1815; J2001; J2250; J2405; J2704; J3480; J3490; J7060; P9047

== ENCOUNTER 2022-03-22 18:07 | Inpatient (IN) | payer MEDICARE, MEDICAID ==
[~2022-03-22] VITALS: Ht 160 cm; Wt 95.9 kg
[2022-03-23] MEDS ORDERED: NITROGLYCERIN 0.4 MG SL TAB SL PRN (16:00)
[2022-03-23] MEDS ORDERED: ACETAMINOPHEN 650 mg PER 20.3 mL UD GT PRN (16:00)
[2022-03-23] MEDS ORDERED: HYDROcodone-ACET 5/325MG TAB PEG PRN (16:00)
[2022-03-23] MEDS ORDERED: Nepro With Carb Steady 1 Liter Bottle GT SCH (16:00)
[2022-03-23] MEDS ORDERED: MORPHINE SULFATE INJ 2 MG/ml SYRG IV PRN (16:00)
[2022-03-23] MEDS ORDERED: hydrALAZINE HCL 20 MG/ML VL IV PRN (16:00)
[2022-03-23 17:00] VITALS: BP 108/64
[2022-03-23] MEDS ORDERED: SILD20TA2 PO (18:39)
[2022-03-23] MEDS ORDERED: DEXTROSE (50%) 50ML SYRG IV PRN (19:15)
[2022-03-23 22:00] VITALS: BP 143/85
[2022-03-23] MEDS: BUDESONIDE (INHALATION) 0.5 MG/2 ML NEB NEB SCH (22:39)
[2022-03-23] MEDS: ATORVASTATIN 20 MG TAB PEG SCH (22:41)
[2022-03-23] MEDS: QUEtiapine FUMARATE 25 MG TAB PEG SCH (22:42)
[2022-03-23] MEDS: SODIUM BICARBONATE 650 MG TAB PEG SCH (22:42)
[2022-03-23] MEDS: HYDROcodone-ACET 10/325MG TAB PEG PRN (22:46)
[2022-03-23] MEDS: CARVEDILOL 12.5 MG TAB PEG SCH (22:46)
[2022-03-23] MEDS: ACCU-CHEK COMFORT CURVE STRIP VI SCH (22:59)
[2022-03-23] MEDS: InsuLIN REG 1unit/0.01ml Soln (100units/ml) SC SCH (23:00)
[2022-03-24 03:08] VITALS: BP 108/64
[2022-03-24 05:00] VITALS: BP 139/67
[2022-03-24] MEDS: ACCU-CHEK COMFORT CURVE STRIP VI SCH ×4 (05:47→21:53)
[2022-03-24] MEDS: InsuLIN REG 1unit/0.01ml Soln (100units/ml) SC SCH ×4 (05:48→22:25)
[2022-03-24 06:31] LABS: Albumin 2.3 g/dL (3.4-5.0); Calcium 8.2 mg/dL (8.5-10.1)
[2022-03-24 06:33] LABS: Basophils # (auto) 0 10 ^3/uL (0-0.2); Eosinophils # (auto) 0 10 ^3/uL (0-0.8); Eosinophils % (auto) 0.3 % (0.0-7.0); Hemoglobin 8.3 g/dL (12.2-16.2); Mean Corpuscular Hemoglobin 25.6 pg (28.0-32.0); Mean Corpuscular Hgb Conc. 30.7 g/dL (32.0-36.0); Mean Corpuscular Volume 83.4 fL (80.0-100.0); Monocytes # (auto) 1.2 10 ^3/uL (0-1.3); Monocytes % (auto) 11.2 % (0.0-12.0); Neutrophils # (auto) 8.6 10 ^3/uL (1.6-8.6); Neutrophils % (auto) 79.5 % (37.0-80.0); Nucleated Red Blood Cells % 1.1 %; Red Blood Cells 3.24 10^6/uL (4.0-5.20); White Blood Cell 10.9 10^3/uL (4.4-10.8)
[2022-03-24 06:36] LABS: BUN/Creatinine Ratio 17.3; Bilirubin, Total 0.6 mg/dL (0.2-1.0); Total Protein 5.2 g/dL (6.4-8.2)
[2022-03-24 06:51] LABS: Red Cell Distribution Width 23.6 % (11.8-14.3)
[2022-03-24 09:00] VITALS: BP 103/58
[2022-03-24] MEDS: ZINC SULFATE 220mg CAP or TAB PEG SCH (09:36)
[2022-03-24] MEDS: FERROUS SULFATE 300 MG/5 ML ORAL LIQ GT SCH (09:36)
[2022-03-24] MEDS: predniSONE 20 MG TAB GT SCH (09:37)
[2022-03-24] MEDS: B-COMPLEX W/ C & FOLIC ACID(NEPHROVITE TAB) PEG SCH (09:37)
[2022-03-24] MEDS: SODIUM BICARBONATE 650 MG TAB PEG SCH ×2 (09:37→21:52)
[2022-03-24] MEDS: FAMOTIDINE 20 MG TAB PEG SCH (09:38)
[2022-03-24] MEDS: AMIODARONE HCL 200 MG TAB PEG SCH (09:38)
[2022-03-24] MEDS: QUEtiapine FUMARATE 25 MG TAB PEG SCH ×2 (09:38→21:52)
[2022-03-24] MEDS: CARVEDILOL 12.5 MG TAB PEG SCH ×2 (09:39→21:52)
[2022-03-24] MEDS: BUDESONIDE (INHALATION) 0.5 MG/2 ML NEB NEB SCH ×2 (09:52→22:03)
[2022-03-24] MEDS: HEPARIN SODIUM (PORCINE) 5000 UNITS/ML 1ML VIAL SC SCH (09:57)
[2022-03-24] MEDS: INSULIN LANTUS (GLARGINE) 1 /0.01ml (100units/ml) SC SCH (11:20)
[2022-03-24 11:45] VITALS: BP 119/60
[2022-03-24 17:01] VITALS: BP 106/60
[2022-03-24 21:30] VITALS: BP 105/61
[2022-03-24] MEDS: FUROSEMIDE 100 MG/10ML VIAL IV SCH (21:51)
[2022-03-24] MEDS: ALBUMIN 25% 50 ML IV SCH (21:51)
[2022-03-24] MEDS: ATORVASTATIN 20 MG TAB PEG SCH (21:52)
[2022-03-24] MEDS: HYDROcodone-ACET 10/325MG TAB PEG PRN (21:53)
[2022-03-25] MEDS: HYDROcodone-ACET 10/325MG TAB PEG PRN ×2 (02:50→10:28)
[2022-03-25] MEDS: ACCU-CHEK COMFORT CURVE STRIP VI SCH ×4 (06:32→22:07)
[2022-03-25] MEDS: InsuLIN REG 1unit/0.01ml Soln (100units/ml) SC SCH ×4 (06:33→22:00)
[2022-03-25 07:15] LABS: Basophils # (auto) 0 10 ^3/uL (0-0.2); Basophils % (auto) 0.1 % (0.0-2.0); Eosinophils # (auto) 0 10 ^3/uL (0-0.8); Eosinophils % (auto) 0.2 % (0.0-7.0); Hematocrit 26.3 % (36.0-46.0); Hemoglobin 8.3 g/dL (12.2-16.2); Lymphocytes # (auto) 1.1 10 ^3/uL (0.4-5.4); Lymphocytes % (auto) 9.8 % (10.0-50.0); Mean Corpuscular Hemoglobin 26.3 pg (28.0-32.0); Mean Corpuscular Hgb Conc. 31.6 g/dL (32.0-36.0); Mean Corpuscular Volume 83.4 fL (80.0-100.0); Monocytes # (auto) 1.8 10 ^3/uL (0-1.3); Monocytes % (auto) 16.8 % (0.0-12.0); Neutrophils % (auto) 73.1 % (37.0-80.0); Nucleated Red Blood Cells % 1.1 %; Red Blood Cells 3.16 10^6/uL (4.0-5.20); White Blood Cell 10.9 10^3/uL (4.4-10.8)
[2022-03-25 07:16] LABS: Red Cell Distribution Width 23.5 % (11.8-14.3)
[2022-03-25 07:43] LABS: Albumin 2.3 g/dL (3.4-5.0); BUN/Creatinine Ratio 16.9; Calcium 8.8 mg/dL (8.5-10.1); Magnesium 2.4 mg/dL (1.6-2.6); Potassium 3.6 mmol/L (3.5-5.1)
[2022-03-25 07:46] LABS: Bilirubin, Total 0.6 mg/dL (0.2-1.0); Total Protein 5.2 g/dL (6.4-8.2)
[2022-03-25 09:00] VITALS: BP 110/59
[2022-03-25] MEDS ORDERED: SODIUM CHL 0.9% 1000 ML BAG XX ONE (09:00)
[2022-03-25] MEDS: AMIODARONE HCL 200 MG TAB PEG SCH (10:00)
[2022-03-25] MEDS: BUDESONIDE (INHALATION) 0.5 MG/2 ML NEB NEB SCH ×2 (10:00→18:27)
[2022-03-25] MEDS: HEPARIN SODIUM (PORCINE) 5000 UNITS/ML 1ML VIAL SC SCH (10:00)
[2022-03-25] MEDS: CARVEDILOL 12.5 MG TAB PEG SCH ×2 (10:00→22:06)
[2022-03-25] MEDS: FUROSEMIDE 100 MG/10ML VIAL IV SCH ×2 (10:21→22:06)
[2022-03-25] MEDS: ALBUMIN 25% 50 ML IV SCH ×2 (10:24→22:05)
[2022-03-25] MEDS: SODIUM BICARBONATE 650 MG TAB PEG SCH ×2 (10:28→22:06)
[2022-03-25] MEDS: INSULIN LANTUS (GLARGINE) 1 /0.01ml (100units/ml) SC SCH (10:30)
[2022-03-25] MEDS: FAMOTIDINE 20 MG TAB PEG SCH (10:42)
[2022-03-25] MEDS: predniSONE 20 MG TAB GT SCH (10:45)
[2022-03-25] MEDS: ZINC SULFATE 220mg CAP or TAB PEG SCH (10:46)
[2022-03-25] MEDS: B-COMPLEX W/ C & FOLIC ACID(NEPHROVITE TAB) PEG SCH (10:47)
[2022-03-25] MEDS: QUEtiapine FUMARATE 25 MG TAB PEG SCH ×2 (10:48→22:07)
[2022-03-25] MEDS: ALBUMIN 25% 100 ML IV PRN ×2 (10:50→12:05)
[2022-03-25] MEDS: FERROUS SULFATE 300 MG/5 ML ORAL LIQ GT SCH (10:54)
[2022-03-25 13:00] VITALS: BP 102/50
[2022-03-25 17:00] VITALS: BP 110/60
[2022-03-25] MEDS: IPRATROPIUM BROM 0.5 MG/2.5ML INH SOL NEB PRN (18:27)
[2022-03-25] MEDS ORDERED: EPOETIN ALFA-EPBX 10,000 UNIT/1ML VIAL SC ONE (21:00)
[2022-03-25 22:00] VITALS: BP 117/76
[2022-03-25] MEDS: ATORVASTATIN 20 MG TAB PEG SCH (22:07)
[2022-03-26 05:00] VITALS: BP 138/70
[2022-03-26] MEDS: ACCU-CHEK COMFORT CURVE STRIP VI SCH ×4 (06:33→22:37)
[2022-03-26] MEDS: InsuLIN REG 1unit/0.01ml Soln (100units/ml) SC SCH ×4 (06:33→22:00)
[2022-03-26] MEDS: HYDROcodone-ACET 10/325MG TAB PEG PRN ×3 (06:53→16:29)
[2022-03-26] MEDS: BUDESONIDE (INHALATION) 0.5 MG/2 ML NEB NEB SCH ×2 (09:18→18:25)
[2022-03-26] MEDS: IPRATROPIUM BROM 0.5 MG/2.5ML INH SOL NEB PRN (09:18)
[2022-03-26] MEDS: HEPARIN SODIUM (PORCINE) 5000 UNITS/ML 1ML VIAL SC SCH (10:00)
[2022-03-26] MEDS: FERROUS SULFATE 300 MG/5 ML ORAL LIQ GT SCH (10:13)
[2022-03-26] MEDS: ALBUMIN 25% 50 ML IV SCH (10:13)
[2022-03-26] MEDS: predniSONE 20 MG TAB GT SCH (10:23)
[2022-03-26] MEDS: SODIUM BICARBONATE 650 MG TAB PEG SCH ×2 (10:23→22:35)
[2022-03-26] MEDS: FUROSEMIDE 100 MG/10ML VIAL IV SCH ×2 (10:23→22:35)
[2022-03-26] MEDS: ZINC SULFATE 220mg CAP or TAB PEG SCH (10:23)
[2022-03-26] MEDS: AMIODARONE HCL 200 MG TAB PEG SCH (10:23)
[2022-03-26] MEDS: FAMOTIDINE 20 MG TAB PEG SCH (10:24)
[2022-03-26] MEDS: B-COMPLEX W/ C & FOLIC ACID(NEPHROVITE TAB) PEG SCH (10:24)
[2022-03-26] MEDS: CARVEDILOL 12.5 MG TAB PEG SCH ×2 (10:24→22:36)
[2022-03-26] MEDS: QUEtiapine FUMARATE 25 MG TAB PEG SCH ×2 (10:24→22:36)
[2022-03-26] MEDS: INSULIN LANTUS (GLARGINE) 1 /0.01ml (100units/ml) SC SCH (10:26)
[2022-03-26 17:00] VITALS: BP 111/59
[2022-03-26] MEDS ORDERED: BUDESONIDE (INHALATION) 0.5 MG/2 ML NEB ONE (18:14)
[2022-03-26 22:00] VITALS: BP 147/50
[2022-03-26] MEDS: ATORVASTATIN 20 MG TAB PEG SCH (22:36)
[2022-03-27 03:40] VITALS: BP 131/72
[2022-03-27 05:00] VITALS: BP 136/71
[2022-03-27] MEDS: ACCU-CHEK COMFORT CURVE STRIP VI SCH ×3 (06:17→17:24)
[2022-03-27] MEDS: InsuLIN REG 1unit/0.01ml Soln (100units/ml) SC SCH ×4 (06:18→22:00)
[2022-03-27] MEDS ORDERED: SODIUM CHL 0.9% 1000 ML BAG XX ONE (07:00)
[2022-03-27] MEDS: BUDESONIDE (INHALATION) 0.5 MG/2 ML NEB NEB SCH ×2 (07:32→18:43)
[2022-03-27] MEDS: IPRATROPIUM BROM 0.5 MG/2.5ML INH SOL NEB PRN (07:32)
[2022-03-27 08:00] VITALS: BP 112/57
[2022-03-27 08:45] LABS: Basophils # (auto) 0 10 ^3/uL (0-0.2); Basophils % (auto) 0.3 % (0.0-2.0); Eosinophils # (auto) 0 10 ^3/uL (0-0.8); Eosinophils % (auto) 0.4 % (0.0-7.0); Hematocrit 26.5 % (36.0-46.0); Hemoglobin 8.4 g/dL (12.2-16.2); Lymphocytes # (auto) 0.5 10 ^3/uL (0.4-5.4); Lymphocytes % (auto) 5.5 % (10.0-50.0); Mean Corpuscular Hemoglobin 27.2 pg (28.0-32.0); Mean Corpuscular Hgb Conc. 31.7 g/dL (32.0-36.0); Mean Corpuscular Volume 85.8 fL (80.0-100.0); Monocytes # (auto) 0.7 10 ^3/uL (0-1.3); Monocytes % (auto) 8.3 % (0.0-12.0); Neutrophils # (auto) 7.1 10 ^3/uL (1.6-8.6); Neutrophils % (auto) 85.5 % (37.0-80.0); Nucleated Red Blood Cells % 1.9 %; Red Blood Cells 3.09 10^6/uL (4.0-5.20); White Blood Cell 8.3 10^3/uL (4.4-10.8)
[2022-03-27 08:48] LABS: Red Cell Distribution Width 23.5 % (11.8-14.3)
[2022-03-27] MEDS: HYDROcodone-ACET 10/325MG TAB PEG PRN ×2 (08:57→16:21)
[2022-03-27] MEDS ORDERED: ALBUMIN 25% 100 ML IV SCH (09:00)
[2022-03-27] MEDS: ALBUMIN 25% 100 ML IV SCH ×2 (09:43→10:00)
[2022-03-27] MEDS: HEPARIN SODIUM (PORCINE) 5000 UNITS/ML 1ML VIAL SC SCH (10:00)
[2022-03-27 10:16] LABS: Chloride 104 mmol/L (98-107); Potassium 3.3 mmol/L (3.5-5.1); Sodium 144 mmol/L (136-145)
[2022-03-27 10:17] LABS: Anion Gap 9 (5-15); BUN/Creatinine Ratio 15.4; Blood Urea Nitrogen 38 mg/dL (7-18); Calcium 8.4 mg/dL (8.5-10.1); Carbon Dioxide 31 mmol/L (21-32); GFR African American 25 mL/min; GFR Non-African American 20 mL/min; Glucose 127 mg/dL (74-106); Magnesium 2.2 mg/dL (1.6-2.6)
[2022-03-27] MEDS: INSULIN LANTUS (GLARGINE) 1 /0.01ml (100units/ml) SC SCH (10:41)
[2022-03-27] MEDS: ZINC SULFATE 220mg CAP or TAB PEG SCH (11:04)
[2022-03-27] MEDS: SODIUM BICARBONATE 650 MG TAB PEG SCH ×2 (11:04→23:09)
[2022-03-27] MEDS: AMIODARONE HCL 200 MG TAB PEG SCH (11:05)
[2022-03-27] MEDS: CARVEDILOL 12.5 MG TAB PEG SCH ×2 (11:05→22:00)
[2022-03-27] MEDS: QUEtiapine FUMARATE 25 MG TAB PEG SCH ×2 (11:06→22:00)
[2022-03-27] MEDS: B-COMPLEX W/ C & FOLIC ACID(NEPHROVITE TAB) PEG SCH (11:06)
[2022-03-27] MEDS: predniSONE 20 MG TAB GT SCH (11:06)
[2022-03-27] MEDS: FERROUS SULFATE 300 MG/5 ML ORAL LIQ GT SCH (11:06)
[2022-03-27] MEDS: FAMOTIDINE 20 MG TAB PEG SCH (11:06)
[2022-03-27] MEDS: FUROSEMIDE 100 MG/10ML VIAL IV SCH ×2 (11:07→23:23)
[2022-03-27 13:00] VITALS: BP 108/60
[2022-03-27 16:01] VITALS: BP 132/53
[2022-03-27] MEDS: ALPRAZolam 0.5 MG TAB PO PRN (17:06)
[2022-03-27] MEDS ORDERED: EPOETIN ALFA-EPBX 10,000 UNIT/1ML VIAL SC ONE (21:00)
[2022-03-27 21:40] VITALS: BP 108/52
[2022-03-27] MEDS: ATORVASTATIN 20 MG TAB PEG SCH (23:09)
[2022-03-28] MEDS: ACCU-CHEK COMFORT CURVE STRIP VI SCH ×5 (00:17→23:46)
[2022-03-28 04:40] VITALS: BP 114/45
[2022-03-28] MEDS: BUDESONIDE (INHALATION) 0.5 MG/2 ML NEB NEB SCH ×3 (06:19→22:06)
[2022-03-28] MEDS: IPRATROPIUM BROM 0.5 MG/2.5ML INH SOL NEB PRN ×2 (06:19→06:25)
[2022-03-28] MEDS: InsuLIN REG 1unit/0.01ml Soln (100units/ml) SC SCH ×4 (06:44→22:00)
[2022-03-28 09:00] VITALS: BP 111/56
[2022-03-28] MEDS: ALPRAZolam 0.5 MG TAB PO PRN (09:05)
[2022-03-28] MEDS: HEPARIN SODIUM (PORCINE) 5000 UNITS/ML 1ML VIAL SC SCH (10:00)
[2022-03-28] MEDS ORDERED: POTASSIUM EFFERVESENT TAB 25 MEQ GT ONE (12:15)
[2022-03-28 13:00] VITALS: BP 110/64
[2022-03-28 13:11] LABS: Hemoglobin 9.3 g/dL (12.2-16.2); Mean Corpuscular Volume 90.2 fL (80.0-100.0); Red Blood Cells 3.33 10^6/uL (4.0-5.20); White Blood Cell 8.3 10^3/uL (4.4-10.8)
[2022-03-28 13:13] LABS: Band Neutrophils % (manual) 0; Basophils % (manual) 0 (0.0-2.0); Blast Cells 0; Eosinophils % (manual) 0 (0-7); Metamyelocytes % 0; Myelocytes % 0; Promyelocytes % 0; Reactive Lymphocytes 0
[2022-03-28] MEDS: FAMOTIDINE 20 MG TAB PEG SCH (13:14)
[2022-03-28] MEDS: AMIODARONE HCL 200 MG TAB PEG SCH (13:14)
[2022-03-28] MEDS: QUEtiapine FUMARATE 25 MG TAB PEG SCH ×2 (13:16→23:13)
[2022-03-28] MEDS: B-COMPLEX W/ C & FOLIC ACID(NEPHROVITE TAB) PEG SCH (13:16)
[2022-03-28] MEDS: predniSONE 5 MG TAB GT SCH (13:17)
[2022-03-28] MEDS: SODIUM BICARBONATE 650 MG TAB PEG SCH ×2 (13:17→23:13)
[2022-03-28] MEDS: ZINC SULFATE 220mg CAP or TAB PEG SCH (13:17)
[2022-03-28] MEDS: FUROSEMIDE 100 MG/10ML VIAL IV SCH ×2 (13:18→23:15)
[2022-03-28] MEDS: CARVEDILOL 12.5 MG TAB PEG SCH ×2 (13:21→23:14)
[2022-03-28 13:24] LABS: Calcium 8.8 mg/dL (8.5-10.1); Magnesium 2.6 mg/dL (1.6-2.6); Potassium 3.8 mmol/L (3.5-5.1)
[2022-03-28] MEDS: FERROUS SULFATE 300 MG/5 ML ORAL LIQ GT SCH (14:01)
[2022-03-28] MEDS: INSULIN LANTUS (GLARGINE) 1 /0.01ml (100units/ml) SC SCH (14:24)
[2022-03-28 14:51] LABS: Lymphocytes % (manual) 8 (10.0-50.0); Monocytes % (manual) 6 (0-12)
[2022-03-28 17:00] VITALS: BP 107/62
[2022-03-28 22:00] VITALS: BP 118/61
[2022-03-28] MEDS: ATORVASTATIN 20 MG TAB PEG SCH (23:14)
[2022-03-29 05:00] VITALS: BP 134/67
[2022-03-29] MEDS: ALPRAZolam 0.5 MG TAB PO PRN (06:25)
[2022-03-29] MEDS: InsuLIN REG 1unit/0.01ml Soln (100units/ml) SC SCH ×3 (06:26→17:17)
[2022-03-29] MEDS: ACCU-CHEK COMFORT CURVE STRIP VI SCH ×3 (06:36→17:08)
[2022-03-29] MEDS: BUDESONIDE (INHALATION) 0.5 MG/2 ML NEB NEB SCH (07:15)
[2022-03-29 09:00] VITALS: BP 106/54
[2022-03-29] MEDS: HEPARIN SODIUM (PORCINE) 5000 UNITS/ML 1ML VIAL SC SCH (10:00)
[2022-03-29] MEDS: FERROUS SULFATE 300 MG/5 ML ORAL LIQ GT SCH (11:03)
[2022-03-29] MEDS: predniSONE 5 MG TAB GT SCH (11:04)
[2022-03-29] MEDS: SODIUM BICARBONATE 650 MG TAB PEG SCH (11:04)
[2022-03-29] MEDS: FUROSEMIDE 100 MG/10ML VIAL IV SCH (11:04)
[2022-03-29] MEDS: ZINC SULFATE 220mg CAP or TAB PEG SCH (11:05)
[2022-03-29] MEDS: CARVEDILOL 12.5 MG TAB PEG SCH (11:05)
[2022-03-29] MEDS: AMIODARONE HCL 200 MG TAB PEG SCH (11:05)
[2022-03-29] MEDS: QUEtiapine FUMARATE 25 MG TAB PEG SCH (11:06)
[2022-03-29] MEDS: B-COMPLEX W/ C & FOLIC ACID(NEPHROVITE TAB) PEG SCH (11:06)
[2022-03-29] MEDS: FAMOTIDINE 20 MG TAB PEG SCH (11:06)
[2022-03-29] MEDS: INSULIN LANTUS (GLARGINE) 1 /0.01ml (100units/ml) SC SCH (11:23)
[2022-03-29 13:00] VITALS: BP 113/58
[2022-03-29] MEDS ORDERED: cefTRIAXone 1GM/50ML D5W 50 ML IV ONE (13:00)
[2022-03-29 13:45] LABS: Basophils # (auto) 0 10 ^3/uL (0-0.2); Eosinophils # (auto) 0 10 ^3/uL (0-0.8); Hemoglobin 8.6 g/dL (12.2-16.2)
[2022-03-29 13:46] LABS: Basophils % (auto) 0.1 % (0.0-2.0); Eosinophils % (auto) 0.3 % (0.0-7.0); Hematocrit 26.7 % (36.0-46.0); Lymphocytes # (auto) 0.4 10 ^3/uL (0.4-5.4); Lymphocytes % (auto) 6.2 % (10.0-50.0); Mean Corpuscular Hemoglobin 28.3 pg (28.0-32.0); Mean Corpuscular Hgb Conc. 32.2 g/dL (32.0-36.0); Mean Corpuscular Volume 87.8 fL (80.0-100.0); Monocytes # (auto) 0.7 10 ^3/uL (0-1.3); Monocytes % (auto) 9.9 % (0.0-12.0); Neutrophils # (auto) 5.6 10 ^3/uL (1.6-8.6); Neutrophils % (auto) 83.5 % (37.0-80.0); Nucleated Red Blood Cells % 2.1 %; Red Blood Cells 3.04 10^6/uL (4.0-5.20); White Blood Cell 6.7 10^3/uL (4.4-10.8)
[2022-03-29 13:49] LABS: Red Cell Distribution Width 24.4 % (11.8-14.3)
[2022-03-29] MEDS ORDERED: metroNIDAZOLE 500 MG TAB PO SCH (14:00)
[2022-03-29 14:01] LABS: BUN/Creatinine Ratio 16.5; Calcium 8.7 mg/dL (8.5-10.1); Magnesium 2.4 mg/dL (1.6-2.6); Potassium 4.2 mmol/L (3.5-5.1)
[2022-03-29 17:00] VITALS: BP 116/63
[2022-03-30] MEDS ORDERED: cefTRIAXone 1GM/50ML D5W 50 ML IV SCH (09:00)
== END 2022-03-29 19:20 | DRG 291 ==
LOC: TELE-EAST 03-23 13:35
PROVIDERS: ADMIT Internal Medicine; ATTEND Internal Medicine
PROC: 5A1D70Z Performance of Urinary Filtration, Intermittent, Less than 6 Hours Per Day (ICD-10-PCS; principal; 2022-03-25)
PROC: 5A1D70Z Performance of Urinary Filtration, Intermittent, Less than 6 Hours Per Day (ICD-10-PCS; 2022-03-27)
DX: I13.2 Hypertensive heart and chronic kidney disease with heart failure and with stage 5 chronic kidney disease, or end stage renal disease (principal); G93.41 Metabolic encephalopathy; N18.6 End stage renal disease; J96.21 Acute and chronic respiratory failure with hypoxia; I50.21 Acute systolic (congestive) heart failure; N17.9 Acute kidney failure, unspecified; I42.8 Other cardiomyopathies; Z20.822 Contact with and (suspected) exposure to COVID-19; J44.9 Chronic obstructive pulmonary disease, unspecified; I48.91 Unspecified atrial fibrillation; D63.8 Anemia in other chronic diseases classified elsewhere; E66.9 Obesity, unspecified; M60.9 Myositis, unspecified; M10.9 Gout, unspecified; F17.200 Nicotine dependence, unspecified, uncomplicated; E78.5 Hyperlipidemia, unspecified; Z68.38 Body mass index [BMI] 38.0-38.9, adult; Z93.1 Gastrostomy status; Z93.0 Tracheostomy status; Z99.81 Dependence on supplemental oxygen; Z99.2 Dependence on renal dialysis; Z88.8 Allergy status to other drugs, medicaments and biological substances; Z95.810 Presence of automatic (implantable) cardiac defibrillator; Z90.710 Acquired absence of both cervix and uterus; Z90.49 Acquired absence of other specified parts of digestive tract; Z86.73 Personal history of transient ischemic attack (TIA), and cerebral infarction without residual deficits; Z85.118 Personal history of other malignant neoplasm of bronchus and lung; Z85.038 Personal history of other malignant neoplasm of large intestine; Z83.3 Family history of diabetes mellitus; Z80.3 Family history of malignant neoplasm of breast; Z80.1 Family history of malignant neoplasm of trachea, bronchus and lung; Z82.49 Family history of ischemic heart disease and other diseases of the circulatory system; Z80.0 Family history of malignant neoplasm of digestive organs; Z79.84 Long term (current) use of oral hypoglycemic drugs; Z79.51 Long term (current) use of inhaled steroids; Z79.01 Long term (current) use of anticoagulants
CPT/HCPCS: 36415; 71045; 80048; 80053; 82962; 83735; 83880; 84100; 85007; 85025; 85027; 87070; 87081; 87205; 87340; 90935; 92610; 94640; A4605; G0378; J0696; J1642; J1815; P9047